=== PATIENT | female | born 1965 | race Caucasian/White ===

== ENCOUNTER 2019-09-01 13:00 | Outpatient (CLI) | payer BC, SELFPAY ==
--- NOTE | 2019-09-01 13:06 | ECG_ITS ---
Measurements Intervals [place] Rate: 65 P: 37 [place]: 152 QRS: 54 QRSD: 91 T: 22 QT: 404 QTc: 421 Interpretive Statements SINUS RHYTHM DELAYED PRECORDIAL R/S TRANSITION BASELINE ARTIFACT- I, II, III, AVR, AVL, V3-V4 BORDERLINE ECG Electronically Signed On 09-01-2019 13:30:55 CDT by Tanner Marino D.O.
== END 2019-09-01 13:01 | disposition home or self-care (01) ==
LOC: ANHSURGERY 13:06
PROVIDERS: PCP Family Medicine; Visit Provider Urology
DX: E78.5 Hyperlipidemia, unspecified (principal); R94.31 Abnormal electrocardiogram [ECG] [EKG]
CPT/HCPCS: 87086; 93005

== ENCOUNTER 2019-09-04 00:44 | Outpatient (CLI) | payer BC, SELFPAY ==
[2019-09-04 17:53] LABS: SARS-CoV-2 RNA PCR Negative
== END 2019-09-04 00:45 | disposition home or self-care (01) ==
LOC: ANHCOVIDDT 00:44
PROVIDERS: PCP Family Medicine; Visit Provider Urology
DX: Z20.828 Contact with and (suspected) exposure to other viral communicable diseases (principal); Z01.812 Encounter for preprocedural laboratory examination
CPT/HCPCS: 87635; C9803; U0003

== ENCOUNTER 2019-09-07 02:14 | Day surgery (SDC) | payer BC, SELFPAY ==
[2019-08-31 10:49] VITALS: BMI 30.2
[2019-09-07] VITALS (7 sets, daily range): BP systolic 115–169; BP diastolic 59–81; PULSE 71–90; RESP 14–20; TEMP 36.1–36.8; O2SAT 94–100; BMI 30.4
--- NOTE | 2019-09-07 06:05 | WPDHPUPDATE1 ---
History and Physical Update Update Date/Time: 09/07/19 06:05 History and Physical has been reviewed, including an updated exam of the patient. There are NO changes in the patient's condition. Risks, benefits, and alternatives have been discussed and questions answered. Patient agrees to proceed with procedure.
[2019-09-07] MEDS: LACTATED RINGERS 1,000 ML 30 ML IV CONT (13:30)
--- NOTE | 2019-09-07 14:10 | WPDANESEPPF ---
Anes - Initial Pre Proc Eval Procedure: Operation Date: 09/07/19 15:00 Proposed Procedures p Cystoscopy - Ken Marie MD s Exam Under Anesthesia, Abdominal Wound Exploration - Ken Marie MD Date/Time: 09/07/19 14:10 Surgeon: Ken Marie MD Pre Op Diagnosis: Foreign Body In Abdomen Patient Data Age: 54 Gender: F Height: 1.63 m Weight: 80.4 kg Last Vital Signs Temp 36.8 C 09/07/19 13:38 Pulse 71 09/07/19 13:38 Resp 16 09/07/19 13:38 BP 127/69 09/07/19 13:38 Pulse Ox 96 09/07/19 13:38 Allergies Allergy/AdvReac Type Severity Reaction Status Date / Time No Known Allergies Allergy Verified 09/07/19 13:34 Home Medications Medication Instructions Recorded Confirmed Type venlafaxine 150 mg 150 mg PO DAILY 04/02/19 09/07/19 History capsule,extended release 24 hr buspirone 5 mg tablet 5 mg PO TID #90 tablet 07/28/19 09/07/19 Rx metoprolol tartrate 25 mg tablet 25 mg PO DAILY #60 tablet 07/28/19 09/07/19 Rx nystatin 100,000 unit/gram topical 1 applic TOPICAL BID #60 gm 07/28/19 09/07/19 Rx powder cephalexin 250 mg PO BID 08/31/19 09/07/19 History multivitamin 1 tablet PO DAILY 08/31/19 09/07/19 History omeprazole 20 mg PO DAILY 08/31/19 09/07/19 History rosuvastatin 20 mg PO DAILY 08/31/19 09/07/19 History Patient hx anesthesia problems: none Family hx anesthesia problems: none PMFSH Past Medical History Medical History (Updated 09/04/19 @ 13:12 by Vern Watson DO) Benign essential HTN DJD (degenerative joint disease) DEIDRE (generalized anxiety disorder) Hyperlipidemia MDD (major depressive disorder), recurrent episode, moderate DEVENDRA (obstructive sleep apnea) Tobacco use disorder, mild, abuse Surgical History Surgical History (Updated 09/04/19 @ 13:12 by Vern Watson DO) History of hysterectomy S/P left knee arthroscopy Family History Family History (Updated 11/20/18 @ 09:36 by DOCTOR UNKNOWN) Mother Family history of osteoporosis Hypertension Family history of dementia, Onset Age: 85 Sibling Hypertension Family history of alcoholism Father Malignant neoplasm of prostate Family history of congestive heart failure Family history of heart disease in male family member before age 55 Family history of cardiovascular disease, Onset Age: 68 Grandparent Family history of pancreatic cancer Other Family history of arthritis Social History Social History (Updated 07/28/19 @ 11:41 by Virgen Stauffer) Social History: Single Smoking packs per day: 0.5 Smoking cigarettes per day: 10.0 Years smoked: 30 Smoking pack-years: 15.00 Smoking status: Light tobacco smoker Tobacco type: cigarettes Second hand tobacco smoke exposure: Yes Alcohol intake: never Substance use: current Substance use type: marijuana Gender identity (if verbalized by the patient): Female Anes - Eval Final PreProcedure Day of Procedure 09/07/19 14:10 Patient weight: obese Heart: regular rate and rhythm Lungs: clear to auscultation and normal air movement Airway: Mallampati scale class II Neurological: alert and oriented Last oral intake: >/= 8 hours ASA classification: III Emergent: no Anesthetic plan: proceed Anesthesia type and monitoring: general LMA and standard monitoring Informed Consent: The patient's anesthetic plan and its attendant risks and benefits were discussed with the patient/family/POA. Questions were solicited and answers provided to the satisfaction of the patient/family/POA.
[2019-09-07] MEDS: ceFAZolin 2 GM/D5W 50 ML 2 GM/50 ML BAG IVPB (14:38)
[2019-09-07] MEDS: LIDO 1%/EPINEPHRINE 1:100,000 20 ML VIAL INFILTRATE (15:08)
[2019-09-07] MEDS: LIDOCAINE HCL 2% GEL UROJET 10 ML PKG MUCOUS MEM (15:16)
--- NOTE | 2019-09-07 15:29 | PM.PROC ---
Procedure Note - Detailed Date of procedure: 09/07/19 Pre-op diagnosis: Foreign Body In Abdomen Post-op diagnosis: same Procedure performed: Abdominal wound exploration with removal of foreign body, cystoscopy, exam under anesthesia Description of procedure: She was correctly identified and informed consent obtained. She is from the operating room. [facility] The genitalia and lower abdomen were prepped and draped in a sterile fashion. Time-out performed. She was given appropriate perioperative antibiotics. I anesthetized the skin. I made an incision along the exposed a nylon suture. Using Bovie cautery I carried the incision down through the subcutaneous fat all the way of pre fascial area. The sutures dive toward the retropubic space. . A knot encountered and was tied across the midline connecting the right and left nylon sutures from the sling. I cut and removed the not. I then continued to track the sutures down to where they entered the fascia. I cut the sutures above the fascia. Before doing this I did a cystoscopy. She had a somewhat fixed bladder neck but some mobility. There is no bladder foreign bodies. There is no stitches noted inside the bladder. There was no injury to the bladder or urethra. There is no foreign bodies in the urethra. Ureteral orifices were normal. If there is no trabeculation. I did a pelvic exam under anesthesia. There was some mobility to the urethra. There was no exposure or foreign body in the vagina. I copiously irrigated the subcutaneous area. I closed the subcu tissues with 0-Vicryl in a interrupted fashion. I then closed the skin with anel. A sterile dressing was applied. She was awakened and transferred to the PACU in stable condition. Anesthesia: GLMA Surgeon: Ken Marie MD Estimated blood loss (mL): 5 Drains: No Pathology: yes Complications: No immediate complications Condition: stable Disposition: PACU
--- NOTE | 2019-09-07 16:06 | SUR.PHASEI ---
1599 friend(leighann) called for an update, given updated pt should be ready for discharge in about 90 minutes
--- NOTE | 2019-09-07 17:04 | SUR.PHASEI ---
1650 pt complaining her feet are itching, no meds given lately to cause a reaction, pt said she has these episodes anytime of the day, but no one specific place on body. 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 1704 pt doing better with the itching
== END 2019-09-07 17:30 | disposition home or self-care (01) ==
PROVIDERS: PCP Family Medicine; Visit Provider Urology
PROC: (CPT 52352; principal; 2019-09-07 15:00)
PROC: (CPT 52000; 2019-09-07 15:00)
DX: Z48.02 Encounter for removal of sutures (principal); I10 Essential (primary) hypertension; E78.5 Hyperlipidemia, unspecified; G47.33 Obstructive sleep apnea (adult) (pediatric); F32.9 Major depressive disorder, single episode, unspecified; F41.1 Generalized anxiety disorder; F17.210 Nicotine dependence, cigarettes, uncomplicated
CPT/HCPCS: 52000; 15850; 88300; A9270; J0131; J0690; J1200; J2250; J2405; J2704; J3010; J7120

== ENCOUNTER 2019-11-28 13:37 | Emergency (ER) | payer BC, SELFPAY ==
--- NOTE | ~2019-11-28 | XR_ITS ---
EXAMINATION: XR chest 2V 11/28/2019 14:15 INDICATION: Bilateral upper back pain PROCEDURE: 2 view chest COMPARISON: 01/21/2012 FINDINGS: The lungs are clear. The cardiomediastinal silhouette is within normal limits. There are no pleural effusions. There is no pneumothorax suspected. IMPRESSION: 1: NO ACUTE CARDIOPULMONARY DISEASE. Reviewed, dictated and finalized at location A.
[2019-11-28 13:42] VITALS: BP 130/71; PULSE 69; RESP 20; TEMP 36.4; O2SAT 99
--- NOTE | 2019-11-28 13:59 | ED.FEMALEGU ---
HPI - Female Genitourinary General Chief complaint: Back Pain/Injury Stated complaint: lower back pain Time Seen by Provider: 11/28/19 14:00 Source: patient and RN notes reviewed Mode of arrival: ambulatory Limitations: no limitations History of Present Illness MD elicited complaint: flank pain Related Data Home Medications Medication Instructions Recorded Confirmed venlafaxine 150 mg 150 mg PO DAILY 04/02/19 10/20/19 capsule,extended release 24 hr multivitamin 1 tablet PO DAILY 08/31/19 10/20/19 omeprazole 20 mg PO DAILY 08/31/19 10/20/19 rosuvastatin 20 mg PO DAILY 08/31/19 10/20/19 Allergies Allergy/AdvReac Type Severity Reaction Status Date / Time No Known Allergies Allergy Verified 09/07/19 13:34 Review of Systems Review of Systems: Narrative: CONSTITUTIONAL: Denies malaise, chills, sweats, or fever. EYES: Denies visual changes, redness, or discharge. ENT: Denies rhinorrhea, congestion, sinus pain, otalgia or sore throat. CARDIOVASCULAR: Denies chest pain, palpitations, or edema. RESPIRATORY: Denies cough or dyspnea. GASTROINTESTINAL: Denies abdominal pain, nausea, vomiting, diarrhea, bloody, or mucous stools. GENITOURINARY: Denies dysuria or hematuria. SKIN: Denies rash or itching. MUSCULOSKELETAL: Denies back pain, joint pain, or myalgia. NEUROLOGIC: Denies numbness, weakness, or headache. PSYCHIATRIC: Denies anxiety or depression. All systems reviewed & are unremarkable except as noted in HPI and below PMFSH Social History Social History (Updated 10/20/19 @ 17:09 by Mena Coulter) Social History: Single Smoking packs per day: 0.5 Smoking cigarettes per day: 10.0 Years smoked: 30 Smoking pack-years: 15.00 Smoking status: Light tobacco smoker Tobacco type: cigarettes Second hand tobacco smoke exposure: Yes Alcohol intake: never Substance use: current Substance use type: marijuana Gender identity (if verbalized by the patient): Female Comments At time of signature, agree with nursing past medical, surgical, social and family history. There is no relevant family history pertinent to the presenting complaint Exam Narrative: Exam Narrative: GENERAL: Well-appearing, well-nourished, and in no acute distress. HEAD: Normocephalic. EYES: PERRLA, conjunctivae clear. NECK: Supple. No lymphadenopathy CHEST: Clear to auscultation. No respiratory distress. HEART: Regular rate and rhythm. No murmur heard. Normal peripheral pulses. ABDOMEN: Soft, nontender upon palpation, nondistended, normal active bowel sounds, no palpable or pulsatile masses, no guarding. No CVA tenderness SKIN: Warm, dry, no rash. NEURO: Alert and oriented x3. PSYCH: Normal mood and affect Course Course Emergency Course: Patient is aware of diagnosis, understands and agrees to treatment plan. Anticipatory guidance given. Patient agrees to follow-up as directed and is aware of reasons to seek care at the emergency department. Portions of this record may have been created with voice recognition software Vital Signs Vital signs: Vital Signs Temperature 97.6 F 11/28/19 13:42 Pulse Rate 69 11/28/19 13:42 Respiratory Rate 11/28/19 13:42 Blood Pressure 130/71 11/28/19 13:42 Pulse Oximetry 99 11/28/19 13:42 Temperature 97.6 F 11/28/19 13:42 Pulse Rate 69 11/28/19 13:42 Respiratory Rate 11/28/19 13:42 Blood Pressure 130/71 11/28/19 13:42 Pulse Oximetry 99 11/28/19 13:42 Reviewed. Patient has history of hypertension MDM - Female Genitourinary MDM Narrative Medical decision making narrative: Exam findings and UA show no acute concerns or changes; patient is non-toxic appearing and is in no distress. Patient is appropriate for outpatient treatment and follow-up. Differential Diagnosis Differential diagnosis: Likely urinary tract infection, cystitis and other (Nephrolithiasis, pyelonephritis) Lab Data Labs: Urine Glucose Negative Reference Ra
--- NOTE | 2019-11-28 14:09 | ECG_ITS ---
Measurements Intervals [place] Rate: 64 P: 42 [place]: 161 QRS: 57 QRSD: 93 T: 40 QT: 419 QTc: 435 Interpretive Statements SINUS RHYTHM BASELINE ARTIFACT- II, III, AVL, AVF NORMAL ECG Electronically Signed On 11-29-2019 7:59:19 CDT by Tanner Marino D.O.
--- NOTE | 2019-11-28 14:10 | ED.GENADULT ---
HPI - General Adult General Chief complaint: Back Pain/Injury Stated complaint: lower back pain Time Seen by Provider: 11/28/19 14:00 Source: patient and RN notes reviewed Mode of arrival: ambulatory Limitations: no limitations History of Present Illness HPI narrative: 54-year-old female presents with concern for bilateral dull upper back pain. Denies injury or trauma. Reports chronic back problems. Reports history of kidney stones, bladder infections. Reports nausea. Denies dysuria, hematuria, frequency, urgency, shortness of breath, cough MD complaint: Back pain Related Data Home Medications Medication Instructions Recorded Confirmed venlafaxine 150 mg 150 mg PO DAILY 04/02/19 11/28/19 capsule,extended release 24 hr multivitamin 1 tablet PO DAILY 08/31/19 11/28/19 omeprazole 20 mg PO DAILY 08/31/19 11/28/19 rosuvastatin 20 mg PO DAILY 08/31/19 11/28/19 lactobacillus combination no.8 See Rx Instructions .ROUTE .COMPLEX 11/28/19 11/28/19 [Adult Probiotic] metoprolol tartrate 25 mg PO DAILY 11/28/19 11/28/19 Allergies Allergy/AdvReac Type Severity Reaction Status Date / Time No Known Allergies Allergy Verified 09/07/19 13:34 Review of Systems Review of Systems: Narrative: CONSTITUTIONAL: Denies malaise, chills, or fever. EYES: Denies visual changes, redness, or discharge. ENT: Denies rhinorrhea, congestion, sinus pain, otalgia or sore throat. CARDIOVASCULAR: Denies chest pain, palpitations, or edema. RESPIRATORY: Denies cough or dyspnea. GASTROINTESTINAL: Denies abdominal pain, vomiting, diarrhea. Reports nausea and constipation GENITOURINARY: Denies frequency, urgency, dysuria or hematuria. SKIN: Denies bruising, redness MUSCULOSKELETAL: Reports bilateral upper dull back pain. Denies myalgia. NEUROLOGIC: Denies numbness, weakness, or headache. All systems reviewed & are unremarkable except as noted in HPI and below PMFSH Past Medical History Medical History Benign essential HTN DJD (degenerative joint disease) DEIDRE (generalized anxiety disorder) Hyperlipidemia MDD (major depressive disorder), recurrent episode, moderate DEVENDRA (obstructive sleep apnea) Tobacco use disorder, mild, abuse Social History Social History (Updated 10/20/19 @ 17:09 by Mena Coulter) Social History: Single Smoking packs per day: 0.5 Smoking cigarettes per day: 10.0 Years smoked: 30 Smoking pack-years: 15.00 Smoking status: Light tobacco smoker Tobacco type: cigarettes Second hand tobacco smoke exposure: Yes Alcohol intake: never Substance use: current Substance use type: marijuana Gender identity (if verbalized by the patient): Female Comments At time of signature, agree with nursing past medical, surgical, social and family history. There is no relevant family history pertinent to the presenting complaint Exam Narrative: Exam Narrative: GENERAL: Well-appearing, well-nourished, and in no acute distress. HEAD: Normocephalic, atraumatic. EYES: PERRLA, conjunctivae clear ENT: Mucous membranes moist. NECK: Supple. No jugular venous distension CHEST: No respiratory distress. Clear to auscultation. No bony deformities, no asymmetry. Speaks in full sentences. HEART: Regular rate and rhythm. No murmur heard. ABDOMEN: Soft, nontender, nondistended, normal active bowel sounds, no palpable masses. No CVA tenderness MUSCULOSKELETAL: Gross normal range of motion and strength in all extremities;No midline back tenderness to palpation. No paraspinal tenderness. Transfers from lying to sitting to standing. SKIN: Warm, dry, no rash. NEURO: Alert and oriented x3. PSYCH: Normal mood and affect Course Course Emergency Course: Patient is aware of diagnosis, understands and agrees to treatment plan. Anticipatory guidance given. Patient agrees to follow-up as directed and is aware of reasons to seek care at the emergency department. Portions of
== END 2019-11-28 14:34 | disposition home or self-care (01) ==
PROVIDERS: Emergency Provider Nurse Practitioner; PCP Family Medicine
DX: M54.6 Pain in thoracic spine (principal); F17.210 Nicotine dependence, cigarettes, uncomplicated; I10 Essential (primary) hypertension; E78.5 Hyperlipidemia, unspecified; G47.33 Obstructive sleep apnea (adult) (pediatric)
CPT/HCPCS: 71046; 81003; 93005; 99213; G0463

== ENCOUNTER → 2020-01-12 08:41 | Outpatient (CLI) | payer BC, SELFPAY ==
--- NOTE | ~2020-01-12 | MR_ITS ---
EXAMINATION: MR lumbar spine wo con DATE: 01/12/2020 09:18 INDICATION: Lumbar radicular pain. TECHNIQUE: Magnetic resonance imaging (MRI) of the lumbar spine was performed without intravenous con trast. Sequences included sagittal T2-weighted FSE, sagittal T2-weighted FS FSE, sagittal T1-weighted FSE, and axial T2-weighted FSE. COMPARISON: None FINDINGS: There is 7 degrees levocurvature of thoracolumbar spine. There is 2 mm anterolisthesis of L 5 on S1. Vertebral body heights are normal. There is mildly decreased disc height at L5-S1. The dista l spinal cord signal intensity is normal. The conus medullaris is at L1. The following disc levels ar e specifically discussed: L1-L2: The disc does not extend beyond the endplate margin. There is mild bilateral facet joint osteo arthritis. There is no neural foraminal stenosis. There is no central canal stenosis. L2-L3: The disc is bulging. There is mild bilateral facet joint osteoarthritis. There is mild bilater al neural foraminal stenosis. There is no central canal stenosis. L3-L4: The disc is mildly bulging. There is mild bilateral facet joint osteoarthritis. There is mild bilateral neural foraminal stenosis. There is no central canal stenosis. L4-L5: The disc is bulging. There is severe bilateral facet joint osteoarthritis with a synovial cyst of the right that displaces the right L5 nerve root. There is moderate bilateral neural foraminal st enosis. There is mild central canal stenosis. L5-S1: The disc is bulging and has an annular fissure. There is severe bilateral facet joint osteoart hritis. There is mild bilateral neural foraminal stenosis. There is no central canal stenosis. IMPRESSION: 1. Moderate lower lumbar spondylosis. Reviewed, dictated and finalized at location A.
== END ==
PROVIDERS: PCP Family Medicine
DX: M47.26 Other spondylosis with radiculopathy, lumbar region (principal)
CPT/HCPCS: 72148

== ENCOUNTER 2020-03-17 09:42 | Emergency (ER) | payer BC, SELFPAY ==
[2020-03-17 09:47] VITALS: BP 151/87; PULSE 85; RESP 16; TEMP 36.6; O2SAT 97
--- NOTE | 2020-03-17 10:14 | ED.FEMALEGU ---
HPI - Female Genitourinary General Chief complaint: Urogenital-Female Stated complaint: poss uti Time Seen by Provider: 03/17/20 09:54 Source: patient and RN notes reviewed Mode of arrival: ambulatory Limitations: no limitations History of Present Illness HPI Narrative: Patient presents today with a 2-week history of urinary frequency, malodorous urine, and occasional dysuria. Denies hematuria or abdominal pain. Patient reports chronic low back pain, but no worse than normal. Reports history of bladder surgery x2, once in June and once in August 2019. States she still has drainage from her incision, which her urologist is aware of. Since she developed these new symptoms of frequency and malodorous urine, she has not tried to follow-up with her doctor. She has not tried any [id number] treatment prior to arrival. Smokes 0.75 packs/day. MD elicited complaint: other (Urinary frequency) Related Data Home Medications Medication Instructions Recorded Confirmed multivitamin 1 tablet PO DAILY 08/31/19 03/17/20 omeprazole 20 mg PO DAILY 08/31/19 03/17/20 rosuvastatin 40 mg PO DAILY 03/17/20 03/17/20 Allergies Allergy/AdvReac Type Severity Reaction Status Date / Time No Known Allergies Allergy Verified 03/17/20 09:51 Review of Systems Review of Systems: Narrative: CONSTITUTIONAL: Denies body aches, fever, chills, or sweats. EYES: Denies visual changes, redness, or discharge. ENT: Denies rhinorrhea, congestion, sore throat, or otalgia. CARDIOVASCULAR: Denies chest pain, palpitations, or edema. RESPIRATORY: Denies cough or dyspnea. GASTROINTESTINAL: Denies abdominal pain, nausea, vomiting, or diarrhea. GENITOURINARY: Denies hematuria. + Frequency, malodorous urine, occasional dysuria SKIN: Denies rash, itching, or wounds. MUSCULOSKELETAL: Denies back pain, joint pain, or myalgia. NEUROLOGIC: Denies headache, numbness, tingling, or weakness. PSYCH: Denies depression or anxiety. [facility], [facility] Past Medical History Medical History (Updated 03/17/20 @ 10:20 by Julieth Desouza, [employer] MACHINE OPERATOR, [place]) Benign essential HTN DJD (degenerative joint disease) DEIDRE (generalized anxiety disorder) Hyperlipidemia MDD (major depressive disorder), recurrent episode, moderate DEVENDRA (obstructive sleep apnea) Tobacco use disorder, mild, abuse Surgical History Surgical History (Updated 03/17/20 @ 10:20 by Julieth Desouza, [facility], ) History of bladder surgery History of hysterectomy S/P left knee arthroscopy Family History Family History Mother Family history of osteoporosis Hypertension Family history of dementia, Onset Age: 85 Sibling Hypertension Family history of alcoholism Father Malignant neoplasm of prostate Family history of congestive heart failure Family history of heart disease in male family member before age 55 Family history of cardiovascular disease, Onset Age: 68 Grandparent Family history of pancreatic cancer Other Family history of arthritis Social History Social History (Updated 10/20/19 @ 17:09 by Mena Coulter) Social History: Single Smoking packs per day: 0.5 Smoking cigarettes per day: 10.0 Years smoked: 30 Smoking pack-years: 15.00 Smoking status: Light tobacco smoker Tobacco type: cigarettes Second hand tobacco smoke exposure: Yes Alcohol intake: never Substance use: current Substance use type: marijuana Gender identity (if verbalized by the patient): Female Comments At time of signature, I have reviewed and agree with nursing past medical, surgical, social and family history unless otherwise noted. Please see nursing chart for further information. There is no relevant family history pertinent to the presenting complaint Exam Narrative: Exam Narrative: GENERAL: Well-appearing, well-nourished, and in no acute distress. HEAD: Normocephalic, atraumatic. EYES: EOMI. No redness or drainage. C
== END 2020-03-17 10:22 | disposition home or self-care (01) ==
PROVIDERS: Emergency Provider Nurse Practitioner; PCP Family Medicine
DX: R35.0 Frequency of micturition (principal); F17.210 Nicotine dependence, cigarettes, uncomplicated; I10 Essential (primary) hypertension; M19.90 Unspecified osteoarthritis, unspecified site; E78.5 Hyperlipidemia, unspecified; G47.33 Obstructive sleep apnea (adult) (pediatric)
CPT/HCPCS: 81003; 87086; 99213; G0463

== ENCOUNTER 2020-03-21 11:56 | Outpatient (CLI) | payer BC, SELFPAY ==
--- NOTE | ~2020-03-21 | CT_ITS ---
EXAMINATION: CT abdomen pelvis wo con DATE: 03/21/2020 12:23 INDICATION: Flank pain. Urinary frequency. TECHNIQUE: Computed tomography (CT) of the abdomen and pelvis was performed without intravenous contr ast. The dose-length product was 1050.59 mGy-cm. Automated exposure control and iterative reconstruct ion technique were employed. COMPARISON: CT dated 12/08/2018 FINDINGS: There is lingular atelectasis/scarring. Heart size normal. No significant pleural or perica rdial effusion. There are calcified granulomas in the spleen. There are cholecystectomy clips. The li juan ramon, pancreas, adrenal glands and kidneys are unremarkable. No ureteral stones or hydronephrosis. The re is diffuse bladder wall thickening with mild perivesical fatty infiltration. No significant vascul ar abnormality. No lymphadenopathy. There is mild lumbar spondylosis. No acute osseous abnormality. N onobstructive bowel gas pattern. Status post hysterectomy. IMPRESSION: 1. Bladder wall thickening, suspicious for cystitis. Correlate clinically. Reviewed, dictated and finalized at location A. OR CONTACT CENTRE OPERATOR
== END 2020-03-21 11:57 | disposition home or self-care (01) ==
PROVIDERS: PCP Family Medicine; Visit Provider Nurse Practitioner Adult Health
DX: R10.9 Unspecified abdominal pain (principal); R93.41 Abnormal radiologic findings on diagnostic imaging of renal pelvis, ureter, or bladder
CPT/HCPCS: 74176

== ENCOUNTER 2020-05-30 15:35 | Emergency (ER) | payer BC, SELFPAY ==
[2020-05-30 15:40] VITALS: BP 163/78; PULSE 86; RESP 18; TEMP 35.8; O2SAT 99
--- NOTE | 2020-05-30 15:45 | ED.FEMALEGU ---
HPI - Female Genitourinary General Chief complaint: Urogenital-Female Stated complaint: Kidney or bladder infection Time Seen by Provider: 05/30/20 15:45 Source: patient and RN notes reviewed Mode of arrival: ambulatory Limitations: no limitations History of Present Illness HPI Narrative: 55-year-old female presents to the [facility] with complaints of I think I have a UTI. Patient with right flank pain. Patient reports pain is 10 out of 10 and is very unbearable. Denies any nausea vomiting or diarrhea. States it hurts to breathe and move. Related Data Home Medications Medication Instructions Recorded Confirmed multivitamin 1 tablet PO DAILY 08/31/19 04/01/20 omeprazole 20 mg PO DAILY 08/31/19 04/01/20 rosuvastatin 40 mg PO DAILY 03/17/20 04/01/20 gabapentin 100 mg PO DAILY 05/30/20 05/30/20 Allergies Allergy/AdvReac Type Severity Reaction Status Date / Time No Known Allergies Allergy Verified 04/01/20 11:01 Review of Systems Review of Systems: Narrative: CONSTITUTIONAL: Denies fever, chills, or sweats. Reports pain 10 out of 10 EYES: Denies visual changes, redness, or discharge. ENT: Denies rhinorrhea, congestion, sore throat, or otalgia. CARDIOVASCULAR: Denies chest pain, palpitations, or edema. RESPIRATORY: Denies cough or reports shortness of breath when she is having severe pain GASTROINTESTINAL: Denies abdominal pain, nausea, vomiting, or diarrhea. Right lateral abdominal and CVA tenderness GENITOURINARY: Denies dysuria or hematuria. SKIN: Denies rash or itching. MUSCULOSKELETAL: Denies back pain, joint pain, or myalgia. NEUROLOGIC: Denies headache, numbness, or weakness. PSYCHIATRIC: Denies anxiety or depression. All other systems reviewed are negative, except as documented in HPI. [facility] Past Medical History Medical History Benign essential HTN DJD (degenerative joint disease) DEIDRE (generalized anxiety disorder) Hyperlipidemia MDD (major depressive disorder), recurrent episode, moderate DEVENDRA (obstructive sleep apnea) Tobacco use disorder, mild, abuse Surgical History Surgical History History of bladder surgery History of hysterectomy S/P left knee arthroscopy Family History Family History Mother Family history of osteoporosis Hypertension Family history of dementia, Onset Age: 85 Sibling Hypertension Family history of alcoholism Father Malignant neoplasm of prostate Family history of congestive heart failure Family history of heart disease in male family member before age 55 Family history of cardiovascular disease, Onset Age: 68 Grandparent Family history of pancreatic cancer Other Family history of arthritis Social History Social History Social History: Single Smoking packs per day: 0.5 Smoking cigarettes per day: 10.0 Years smoked: 30 Smoking pack-years: 15.00 Smoking status: Current every day smoker Tobacco type: cigarettes Second hand tobacco smoke exposure: Yes Alcohol intake: never Substance use: current Substance use type: marijuana Gender identity (if verbalized by the patient): Female Comments At the time of my signature, I reviewed and agree with the nursing past medical, surgical, social, and family history. There is no relevant family history pertinent to the patient complaint. Exam Narrative: Exam Narrative: GENERAL: This is a well-nourished, well-developed patient, in pain HEAD: normocephalic, atraumatic. EYES: PERRL. Sclera clear/white. Vision is grossly intact. EARS: External ears normal NECK: Neck supple, non-tender without lymphadenopathy. CARDIOVASCULAR: Regular rate and rhythm without murmurs, gallops, or rubs. RESPIRATORY: Clear to auscultation. Breath sounds equal bilaterally. No wheezes, rales, or rho
== END 2020-05-30 15:59 | disposition short-term general hospital (02) ==
LOC: EXPBETH 15:38
PROVIDERS: Emergency Provider Nurse Practitioner; PCP Family Medicine
DX: R10.9 Unspecified abdominal pain (principal); F17.210 Nicotine dependence, cigarettes, uncomplicated; I10 Essential (primary) hypertension; M19.90 Unspecified osteoarthritis, unspecified site; E78.5 Hyperlipidemia, unspecified; F32.9 Major depressive disorder, single episode, unspecified; G47.33 Obstructive sleep apnea (adult) (pediatric)
CPT/HCPCS: 81003; 99212; G0463

== ENCOUNTER 2020-12-09 10:42 | Emergency (ER) | payer BC, SELFPAY ==
--- NOTE | ~2020-12-09 | CT_ITS ---
EXAMINATION: CT abdomen pelvis wo con DATE: 12/09/2020 13:29 INDICATION: Flank pain. TECHNIQUE: Computed tomography (CT) of the abdomen and pelvis was performed without intravenous contr ast. Automated exposure control and iterative reconstruction technique were employed. The dose-length product was 773.69 mGy-cm. COMPARISON: CT abdomen and pelvis 03/21/2020 FINDINGS: The visualized portions of the lung bases demonstrate mild atelectasis. No pleural effusion . The heart size is normal. No pericardial effusion. There are coronary artery calcifications. The li juan ramon is normal. There are changes of cholecystectomy. Calcifications in the spleen are consistent with old granulomatous disease. The pancreas, adrenal glands, and kidneys are normal. There is no urolith iasis. There is a 5.5 x 3.1 U-shaped fluid collection inferior to the bladder. The bladder demonstrat es diffuse wall thickening and adjacent mild fat stranding. There are no dilated loops of bowel. The appendix is normal. There are no pathologically enlarged lymph nodes. There is no free intraperitonea l fluid. There is severe thoracic spondylosis and mild lumbar spondylosis. IMPRESSION: 1. 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 2. Wall thickening of the bladder suspicious for cystitis. Reviewed, dictated and finalized at location A. IMPRESSION: 1. Fluid collection inferior to the bladder, likely a large urethral diverticul um. 2. Wall thickening of the bladder suspicious for cystitis.
[2020-12-09 11:03] VITALS: BP 135/92; PULSE 110; RESP 16; TEMP 36.9; O2SAT 99
--- NOTE | 2020-12-09 13:09 | ED.FEMALEGU ---
HPI - Female Genitourinary General Chief complaint: Urogenital-Female Stated complaint: Urinary retention Time Seen by Provider: 12/09/20 12:35 Source: patient Mode of arrival: ambulatory Limitations: no limitations History of Present Illness HPI Narrative: Patient is a 55-year-old female complaining of urinary retention, accompanied by a low back pain x2 months. Patient states that she has history of kidney stones. Patient states that she recently saw a urologist and had a Ralph cath placed and approximately 720 cc of urine output was obtained. Patient denies any chest pain, shortness of breath, abdominal pain, nausea, vomiting, fever or chills. Related Data Home Medications Medication Instructions Recorded Confirmed gabapentin 100 mg PO DAILY 05/30/20 05/30/20 Allergies Allergy/AdvReac Type Severity Reaction Status Date / Time No Known Allergies Allergy Verified 04/01/20 11:01 Review of Systems Review of Systems: All systems reviewed & are unremarkable except as noted in HPI and below Constitutional: Constitutional: Denies body ache(s), Denies chills, Denies excessive sweating, Denies fatigue, Denies fever(s), Denies headache(s), Denies lethargy, Denies malaise, Denies weakness and Denies weight loss Eyes: Eyes: Denies blurry vision, Denies change in vision and Denies loss of vision ENT: Denies dizziness, Denies ear discharge, Denies headache(s), Denies lip swelling, Denies epistaxis, Denies nasal congestion, Denies neck pain, Denies throat swelling and Denies tongue swelling Cardiovascular: Cardiovascular: Denies chest pain, Denies chest pain at rest, Denies chest pain with activity, Denies diaphoresis, Denies rapid heart rate, Denies edema, Denies irregular heart rhythm, Denies lightheadedness, Denies palpitations, Denies dyspnea and Denies dyspnea on exertion Respiratory: Respiratory: Denies chest congestion, Denies cough, Denies hemoptysis, Denies dyspnea and Denies dyspnea on exertion Gastrointestinal: Gastrointestinal: Denies abdominal pain, Denies melena, Denies hematochezia, Denies diarrhea, Denies nausea, Denies vomiting and Denies hematemesis Musculoskeletal: Musculoskeletal: Denies abnormal gait, Denies deformity, Denies joint swelling, Denies limited range of motion, Denies neck pain and Denies numbness Neurologic: Denies Abnormal speech present, Denies abnormal gait, Denies confusion, Denies dizziness, Denies headache(s), Denies focal weakness, Denies loss of vision, Denies numbness, Denies Other visual disturbances, Denies Sensory deficit (Neuro) and Denies weakness Psychiatric: Psychiatric: Denies confusion, Denies depression, Denies auditory hallucinations, Denies homicidal ideation and Denies suicidal ideation Endocrine: Endocrine: Denies cold intolerance, Denies excessive sweating, Denies fatigue, Denies heat intolerance and Denies palpitations Hematologic/Lymphatic: Hematologic/Lymphatic: Denies easy bleeding and Denies easy bruising Allergic/Immunologic: Allergic/Immunologic: Denies lip swelling, Denies throat swelling and Denies tongue swelling PMFSH Past Medical History Medical History Benign essential HTN DJD (degenerative joint disease) DEIDRE (generalized anxiety disorder) Hyperlipidemia MDD (major depressive disorder), recurrent episode, moderate DEVENDRA (obstructive sleep apnea) Tobacco use disorder, mild, abuse Surgical History Surgical History History of bladder surgery History of hysterectomy S/P left knee arthroscopy Family History Family History Mother Family history of osteoporosis Hypertension Family history of dementia, Onset Age: 85 Sibling Hypertension Family history of alcoholism Father Malignant neoplasm of prostate Family history of congestive heart failure Family history of heart
[2020-12-09 14:27] LABS: Basophils Percent Auto 0.3 % (0.2-1.2); Eosinophils Absolute Auto 0.1 K/mm3 (0-0.3); Eosinophils Percent Auto 1.3 % (0-4.4); Hematocrit 43.9 % (37.0-47.0); Hemoglobin 14.9 g/dL (12.0-15.0); Immature Granulocyte Absolute 0.03 K/mm3 (0.00-0.031); Immature Granulocyte Percent A 0.3 % (0-0.5); Lymphocytes Percent Auto 28.7 % (18.3-44.2); Mean Corpuscular HGB Conc 33.9 g/dl (32-36); Mean Corpuscular Hemoglobin 32.3 pg (26-34); Mean Corpuscular Volume 95.2 fl (80-100); Mean Platelet Volume 11.9 fl (7.4-10.4); Monocytes Absolute Auto 0.6 K/mm3 (0.1-0.6); Monocytes Percent Auto 5.6 % (2.6-8.5); Neutrophils Absolute Auto 6.4 K/mm3 (1.3-6.7); Neutrophils Percent Auto 63.8 % (45.5-73.1); Platelet Count Result 216 k/mm3 (150-375); Red Blood Count 4.61 M/mm3 (4.2-5.4); Red Cell Distribution Width 12.2 % (11.5-14.5); White Blood Count 10.1 K/mm3 (4.5-10.0)
[2020-12-09 14:38] LABS: Alanine Aminotransferase 17 U/L (4-35); Albumin Level 4.3 g/dL (3.5-5.1); Alkaline Phosphatase 84 U/L (38-126); Anion Gap 7 mmol/L (8-16); Aspartate Amino Transferase 23 U/L (14-36); Bilirubin,Total 0.4 mg/dL (0.2-1.3); Blood Urea Nitrogen 7 mg/dL (7-17); Calcium 8.8 mg/dL (8.4-10.2); Carbon Dioxide 28 mmol/L (22-30); Chloride 106 mmol/L (98-107); Estimated CRCL calculation 91 ml/min; Estimated Glomerular Filt Rate > 60; Glucose 102 mg/dL (65-110); Lipase 55 U/L (23-300); Potassium 3.6 mmol/L (3.4-5.0); Sodium 141 mmol/L (137-145)
[2020-12-09 15:41] VITALS: BP 136/85; PULSE 68; RESP 16; O2SAT 97
[2020-12-09 16:12] LABS: Add Urine Microscopic? YES; Appearance Urine Clear (Clear); Bacteria Urine Trace /hpf; Bilirubin Urine Negative (Negative); Blood Urine 2+ (Negative); Color Urine Amber (Yellow); Glucose Urine UA Negative (Negative); Ketones Urine Negative (Negative); Leukocyte Esterase Ur Trace LEU/UL (Negative); Mucus Urine Rare /lpf; Nitrate Urine Positive (Negative); Protein Urine 3+ mg/dL (Negative); RBC Urine >75 /hpf (0-2); Specific Grav Ur 1.019 (1.001-1.035); Squamous Epithelial Cell Urine Few /hpf (Few); WBC Urine >75 /hpf
[2020-12-09 18:30] VITALS: BP 141/85; PULSE 89; RESP 18; O2SAT 97
== END 2020-12-09 18:35 | disposition home or self-care (01) ==
PROVIDERS: Emergency Provider Emergency Medicine; PCP Family Medicine
DX: N30.01 Acute cystitis with hematuria (principal); R33.9 Retention of urine, unspecified; I10 Essential (primary) hypertension; E78.5 Hyperlipidemia, unspecified; G47.33 Obstructive sleep apnea (adult) (pediatric); F17.210 Nicotine dependence, cigarettes, uncomplicated
CPT/HCPCS: 36415; 74176; 80053; 81001; 83690; 85025; 87077; 87086; 87088; 99284

== ENCOUNTER → 2021-01-20 09:40 | Outpatient (CLI) | payer BC, SELFPAY ==
--- NOTE | ~2021-01-20 | XR_ITS ---
EXAMINATION: XR hip RT 2V w AP pelvis INDICATION: Right hip pain TECHNIQUE: AP view the pelvis and two views of the right hip are obtained COMPARISON: 03/02/2010 FINDINGS: Bone alignment is normal. There is no fracture. Osteitis pubis is noted. There is lower lum bar spondylosis. Phleboliths are noted in the pelvis. IMPRESSION: 1. No acute osseous abnormality. Reviewed, dictated and finalized at location B.
--- NOTE | ~2021-01-20 | MR_ITS ---
EXAMINATION: MR lumbar spine wo con DATE: 01/20/2021 10:37 INDICATION: Lumbar radicular pain TECHNIQUE: Magnetic resonance imaging (MRI) of the lumbar spine was performed without intravenous con trast. Sequences included sagittal T2-weighted FSE, sagittal T2-weighted FS FSE, sagittal T1-weighted FSE, and axial T2-weighted FSE. COMPARISON: 01/12/2020 FINDINGS: There are 6 nonrib-bearing lumbar segments, L1-L6. This is been confirmed with correlation with prior CT studies of the chest, abdomen and pelvis which demonstrate 12 paired rib-bearing thoracic segment s. Of note this numbering represents a change by 1 level when compared with the earlier report which presumed a standard complement of 5 lumbar segments. Unchanged mild lumbar levocurvature. 1-2 mm anterolisthesis L5 on L6 and 3 mm anterolisthesis L6 on S 1. Vertebral body heights are normal. Bone marrow signal is normal. Unchanged mild disc height loss a t L6-S1 with posterior annular fissure. Mild disc desiccation without significant disc height loss at L3-L4, L4-L5 and L5-L6. The conus medullaris terminates at L2. There is normal signal in the caudal spinal cord. Paravertebral soft tissues are unremarkable. The following disc levels are specifically discussed: L1-L2: Disc is minimally bulging. There is mild bilateral facet joint osteoarthritis. There is no ashok ral foraminal stenosis. There is no central canal stenosis. L2-L3: Disc is minimally bulging. There is mild bilateral facet joint osteoarthritis. There is no ashok ral foraminal stenosis. There is no central canal stenosis. L3-L4: Disc is bulging with superimposed disc protrusions at the neural foramina, left greater than r ight. There is mild bilateral facet joint osteoarthritis. There is mild bilateral neural foraminal st enosis. There is minimal central canal stenosis. L4-L5: Disc is mildly bulging. There is mild bilateral facet joint osteoarthritis. There is mild bila teral neural foraminal stenosis. There is minimal central canal stenosis. L5-L6: Disc is bulging. There is severe bilateral facet joint osteoarthritis. Prior synovial cyst tang sing from the right facet joint is no longer visualized. There is moderate bilateral neural foraminal stenosis. There is mild central canal stenosis. There is also narrowing of the right and to a lesser degree left lateral recesses. L6-S1: Disc is bulging with annular fissure. There is severe bilateral facet joint osteoarthritis. Th ere is mild bilateral neural foraminal stenosis. There is no central canal stenosis. Is mild narrowin g of the left and right lateral recesses. IMPRESSION: 1. No significant interval change in moderate lumbar spondylosis. Reviewed, dictated and finalized at location A.
== END ==
PROVIDERS: PCP Family Medicine
DX: M54.16 Radiculopathy, lumbar region (principal); M25.551 Pain in right hip; M47.816 Spondylosis without myelopathy or radiculopathy, lumbar region
CPT/HCPCS: 72148; 73502

== ENCOUNTER 2021-03-14 10:24 | Outpatient (CLI) | payer BC, SELFPAY ==
--- NOTE | 2021-03-14 11:00 | NEURO_ITS ---
Impression: # Complains of numbness. # Early sensory Carpal Tunnel Syndrome. # Normal needle/EMG exam. # Clinical correlation recommended. Nerve Conduction Studies Anti Sensory Summary Table Stim Site NR Peak (ms) P-T Amp (?V) Site1 Site2 Delta-P (ms) Dist (cm) Joe (m/s) Left Median Anti Sensory (2-3nd Digit) Wrist 3.7 74.9 Wrist 2-3nd Digit 3.7 14.0 38 Wrist 3.7 76.9 Wrist 2-3nd Digit 3.7 14.0 38 Right Median Anti Sensory (2-3nd Digit) Wrist 3.8 44.3 Wrist 2-3nd Digit 3.8 14.0 37 Wrist 3.5 53.8 Wrist 2-3nd Digit 3.8 14.0 37 Left Radial Anti Sensory (Base 1st Digit) Wrist 2.2 32.1 Wrist Base 1st Digit 2.2 0.0 Right Radial Anti Sensory (Base 1st Digit) Wrist 2.7 19.6 Wrist Base 1st Digit 2.7 0.0 Left Ulnar Anti Sensory (5th Digit) Wrist 2.7 23.6 Wrist 5th Digit 2.7 14.0 52 Right Ulnar Anti Sensory (5th Digit) Wrist 2.9 48.8 Wrist 5th Digit 2.9 14.0 48 Motor Summary Table Stim Site NR Onset (ms) O-P Amp (mV) Site1 Site2 Delta-0 (ms) Dist (cm) Joe (m/s) Left Median Motor (Abd Poll Brev) Wrist 3.7 2.4 Elbow Wrist 4.8 28.0 58 Elbow 8.5 2.0 Right Median Motor (Abd Poll Brev) Wrist 3.2 4.9 Elbow Wrist 4.8 27.0 56 Elbow 8.0 6.0 Left Ulnar Motor (Abd Dig Minimi) Wrist 2.6 7.6 A Elbow Wrist 4.8 28.0 58 A Elbow 7.4 4.8 Right Ulnar Motor (Abd Dig Minimi) Wrist 2.7 6.6 A Elbow Wrist 4.6 27.0 59 A Elbow 7.3 5.7 F Wave Studies NR F-Lat (ms) L-R F-Lat (ms) Left Median (Mrkrs) (Abd Poll Brev) 26.85 0.11 Right Median (Mrkrs) (Abd Poll Brev) 26.96 0.11 Left Ulnar (Mrkrs) (Abd Dig Min) 26.33 0.09 Right Ulnar (Mrkrs) (Abd Dig Min) 26.24 0.09 EMG Side Muscle Nerve Root Ins Act Fibs Amp Dur Recrt Comment Right 1stDorInt Ulnar C8-T1 Nml Nml Nml Nml Nml Right Ext Indicis Radial (Post Int) C7-8 Nml Nml Nml Nml Nml Right Ext Digitorum Radial (Post Int) C7-8 Nml Nml Nml Nml Nml Right BrachioRad Radial C5-6 Nml Nml Nml Nml Nml Right PronatorTeres Median C6-7 Nml Nml Nml Nml Nml Right Abd Poll Brev Median C8-T1 Nml Nml Nml Nml Nml Left 1stDorInt Ulnar C8-T1 Nml Nml Nml Nml Nml Left Ext Indicis Radial (Post Int) C7-8 Nml Nml Nml Nml Nml Left Ext Digitorum Radial (Post Int) C7-8 Nml Nml Nml Nml Nml Left BrachioRad Radial C5-6 Nml Nml Nml Nml Nml Left PronatorTeres Median C6-7 Nml Nml Nml Nml Nml Left Abd Poll Brev Median C8-T1 Nml Nml Nml Nml Nml MTDD
== END 2021-03-14 10:25 | disposition home or self-care (01) ==
PROVIDERS: PCP Family Medicine
DX: R20.0 Anesthesia of skin (principal); G56.00 Carpal tunnel syndrome, unspecified upper limb
CPT/HCPCS: 95886; 95911

== ENCOUNTER 2021-06-10 09:16 | Outpatient (CLI) | payer BC, SELFPAY ==
--- NOTE | ~2021-06-10 | MR_ITS ---
EXAMINATION: MR knee RT wo con DATE: 06/10/2021 10:11 INDICATION: Medial right knee pain TECHNIQUE: Magnetic resonance imaging (MRI) of the right knee was performed without intravenous contr ast. Sequences included coronal PD-weighted FSE, coronal PD-weighted FS FSE, sagittal T2-weighted FS E, sagittal PD-weighted FS FSE and axial PD weighted fat saturated FSE. COMPARISON: None. FINDINGS: Medial compartment: Medial meniscus is normal. Mild partial-thickness cartilage loss with subtle chondral surface irregul arity along the central to posterior weightbearing medial femoral condyle and a few small region of m ild edema-like marrow signal change. Cartilage at the medial tibial plateau appears normal. Lateral compartment: Lateral meniscus is normal. Chondral swelling and signal heterogeneity suggesting some partial thickn ess fissuring along the central to medial aspect of the lateral tibial plateau. Cartilage along the w eightbearing lateral femoral condyle appears normal. Patellofemoral compartment: Deep chondral ulceration with underlying subarticular cystlike changes. Less severe chondral ulcerati on with deep fissuring at the patellar apical ridge and medial facet, the latter with additional tiny subarticular cystlike change. Trochlear cartilage appears normal. Ligaments and tendons: Anterior and posterior cruciate ligaments are normal. Partial tear along the anterior aspect of the p roximal medial collateral ligament with some small amount of surrounding edema consistent with histor y of subacute injury. The fibular collateral ligament complex is normal. The extensor mechanism is no rmal. The visualized medial and lateral hamstring tendons as well as the iliotibial band are normal. Fluid: Physiologic amount of fluid in the joint space. No loose osteochondral bodies identified. Osseous/other: Bone alignment is normal. No fracture or pathologic marrow replacing process. IMPRESSION: 1. Subacute partial tear of the proximal medial collateral ligament. 2. Mild tricompartmental osteoarthritis most prominent in the patellofemoral compartment where there is extensive high-grade patellar chondromalacia. Reviewed, dictated and finalized at location A. IMPRESSION: 1. Subacute partial tear of the proximal medial collateral ligament. 2. Mild tricompartmental osteoarthritis most prominent in the patellofemoral co mpartment where there is extensive high-grade patellar chondromalacia.
== END 2021-06-10 09:17 ==
PROVIDERS: Visit Provider Physician Assistant
DX: M25.561 Pain in right knee (principal); M25.461 Effusion, right knee; S83.411A Sprain of medial collateral ligament of right knee, initial encounter; M17.11 Unilateral primary osteoarthritis, right knee; M94.261 Chondromalacia, right knee
CPT/HCPCS: 73721

== ENCOUNTER 2021-10-05 09:18 | Outpatient (CLI) | payer BC, SELFPAY ==
--- NOTE | ~2021-10-05 | US_ITS ---
EXAMINATION: US art doppler w press LE BI DATE: 10/05/2021 10:18 INDICATION: Claudication. TECHNIQUE: Segmental pressures and plethysmographic and Doppler waveforms of the brachial and lower e xtremity arteries were obtained. COMPARISON: None. FINDINGS: Right and left brachial artery pressures of 188 mm Hg and 175 mm Hg, respectively, are concordant (no rmal difference <= 30 mmHg). The right thigh pressures could not be measured due to inability to cuff occlude the arteries. The be low-knee arterial pressure index was 1.06. The right ankle-brachial index (MARU) is 0.95 (normal >= 0. 9-1.0). The right great toe-brachial index (TBI) is 0.61 (normal >= 0.65). Arterial Doppler waveforms are biphasic from common femoral artery to the ankle. The left thigh pressures and below knee pressure could not be measured due to inability to cuff-occlu de the arteries. The left MARU is 0.96. The left TBI is 0.68. Arterial Doppler waveforms are biphasic from common femoral artery to the ankle. IMPRESSION: 1. Mildly decreased ABIs, consistent with arterial occlusive disease. Reviewed, dictated and finalized at location A.
== END 2021-10-05 09:19 | disposition home or self-care (01) ==
PROVIDERS: PCP Family Medicine; Visit Provider Nurse Practitioner Gerontology
DX: F41.1 Generalized anxiety disorder (principal); I10 Essential (primary) hypertension; E78.5 Hyperlipidemia, unspecified
CPT/HCPCS: 93923

== ENCOUNTER 2022-04-27 15:24 | Outpatient (CLI) | payer BC, SELFPAY ==
--- NOTE | ~2022-04-27 | CT_ITS ---
EXAMINATION: CT lung screening DATE: 04/27/2022 15:53 INDICATION: Personal history of nicotine dependence, current smoker with 20 pack year history TECHNIQUE: Computed tomography (CT) of the chest was performed without intravenous contrast. The dose -length product (DLP) was 111.60 mGy-cm. Automated exposure control and iterative reconstruction tech [employer] were employed. COMPARISON: None FINDINGS: There is mild emphysema. Calcified pulmonary nodules and calcified left hilar and mediastin al lymph nodes are consistent with old granulomatous disease. There is mild scarring of the lingula. No suspicious pulmonary nodules are identified. No pathologically enlarged thoracic lymph nodes are i dentified. The heart size is normal. No pleural effusion or pneumothorax. There is calcified coronary artery atherosclerosis. There is moderate thoracic spondylosis. IMPRESSION: 1. Lung-RADS category 1: Negative. Continue annual screening with noncontrast low-dose chest CT in 12 months. Reviewed, dictated and finalized at location B. R MAINTENANCE IMPRESSION: 1. Lung-RADS category 1: Negative. Continue annual screening with noncontrast l ow-dose chest CT in 12 months.
== END 2022-04-27 15:25 | disposition home or self-care (01) ==
LOC: ANHIMG 15:27
PROVIDERS: PCP Nurse Practitioner Gerontology; Visit Provider Nurse Practitioner Gerontology
DX: Z12.2 Encounter for screening for malignant neoplasm of respiratory organs (principal); Z72.0 Tobacco use
CPT/HCPCS: 71271

== ENCOUNTER 2022-06-25 09:40 | Outpatient (CLI) | payer BC, SELFPAY ==
--- NOTE | ~2022-06-25 | XR_ITS ---
EXAMINATION: XR cervical spine 4-5V DATE: 06/25/2022 10:17 INDICATION: Neck pain. TECHNIQUE: 4 views of cervical spine were obtained. COMPARISON: None. FINDINGS: There is 2 mm retrolisthesis of C5 on C6. Vertebral body heights are normal. There is sever artis decreased disc height at C5-C6 and mildly decreased disc height at C6-C7. There is multilevel unc overtebral joint osteoarthritis, severe bilaterally at C5-C6. There is multilevel mild to moderate fa cet joint osteoarthritis. There is severe facet joint osteoarthritis at C7-T1. There is mild central canal stenosis at C5-C6. No prevertebral soft tissue swelling. IMPRESSION: 1. Severe spondylosis at C5-C6 and mild spondylosis at other levels. Reviewed, dictated and finalized at location A.
--- NOTE | ~2022-06-25 | XR_ITS ---
XR chest 2V 06/25/2022 10:18 Indication: Shortness of breath Procedure: 2 view chest Comparison: 11/28/2019 Findings: Heart size normal. Chronic left basilar atelectasis/scarring. No focal air space disease, p ulmonary edema, pleural effusion or suspected pneumothorax. Impression: 1: No acute cardiopulmonary disease. Reviewed, dictated and finalized at location B. Impression: 1: No acute cardiopulmonary disease.
== END 2022-06-25 09:41 ==
LOC: MICIMG 09:43
PROVIDERS: PCP Family Medicine; Visit Provider Nurse Practitioner Gerontology
DX: M47.812 Spondylosis without myelopathy or radiculopathy, cervical region (principal); R06.02 Shortness of breath
CPT/HCPCS: 71046; 72050

== ENCOUNTER 2022-07-03 15:41 | Outpatient (CLI) | payer BC, SELFPAY ==
--- NOTE | ~2022-07-03 | MM_ITS ---
EXAMINATION: MM screening [facility] BI w abeba HISTORY: Screening mammogram TECHNIQUE: Craniocaudal and mediolateral oblique 3-D tomosynthesis images were obtained and synthetic 2-D images were generated. CAD analysis was submitted and interpreted. COMPARISON: 06/25/2013, 05/17/2011 BREAST PARENCHYMAL COMPOSITION: There are scattered areas of fibroglandular density. FINDINGS: No suspicious mass, calcification, or architectural distortion are identified in either rene ast to suggest malignancy. There has been no suspicious interval change. IMPRESSION: 1. No mammographic evidence of malignancy. 2. Recommend routine screening mammography in one year. BI-RADS Category 1: Negative Reviewed, dictated and finalized at location A.
== END 2022-07-03 15:42 | disposition home or self-care (01) ==
PROVIDERS: PCP Family Medicine; Visit Provider Nurse Practitioner Gerontology
DX: Z12.31 Encounter for screening mammogram for malignant neoplasm of breast (principal)
CPT/HCPCS: 77063; 77067

== ENCOUNTER 2022-09-28 13:04 | Emergency (ER) | payer BC, SELFPAY ==
--- NOTE | ~2022-09-28 | CT_ITS ---
EXAMINATION: CT abdomen pelvis w con DATE: 09/28/2022 15:15 INDICATION: Left lower quadrant abdominal pain. Left groin tenderness. TECHNIQUE: Computed tomography (CT) of the abdomen and pelvis was performed with 100 mL Omnipaque 350 intravenous contrast. Automated exposure control and iterative reconstruction technique were employe d. The dose-length product was 605.36 mGy-cm. COMPARISON: CT abdomen and pelvis 12/09/2020 FINDINGS: The visualized portions of the lung bases demonstrate mild atelectasis. No pleural effusion . The heart size is normal. There are coronary artery calcifications. No pericardial effusion. The li juan ramon is normal. There are changes of cholecystectomy. Calcifications in the spleen are consistent with old granulomatous disease. The pancreas, adrenal glands, and right kidney are normal. There is corti gerhard thinning of left kidney. There are no dilated loops of bowel. The appendix is normal. There is a left-sided spigelian hernia containing fat. There is calcified atherosclerosis of the aorta and many of the other arteries. There are no pathologically enlarged lymph nodes. There is no free intraperito rony fluid. There is severe thoracic spondylosis and moderate lumbar spondylosis. IMPRESSION: 1. Left-sided spigelian hernia containing fat. Reviewed, dictated and finalized at location E.
[2022-09-28 12:59] VITALS: BP 193/95; PULSE 80; RESP 18; O2SAT 99
[2022-09-28 13:37] LABS: Basophils Absolute Auto 0.1 K/mm3 (0.0-0.1); Basophils Percent Auto 0.7 % (0.2-1.2); Eosinophils Absolute Auto 0.1 K/mm3 (0-0.3); Eosinophils Percent Auto 1.7 % (0-4.4); Hematocrit 45.6 % (37.0-47.0); Hemoglobin 15.1 g/dL (12.0-15.0); Immature Granulocyte Absolute 0.03 K/mm3 (0.00-0.031); Immature Granulocyte Percent A 0.4 % (0-0.5); Immature Platelet Fraction Pct 13.7 % (0.9-11.2); Lymphocytes Absolute Auto 2.89 K/mm3 (0.9-3.2); Mean Corpuscular HGB Conc 33.1 g/dl (32-36); Mean Corpuscular Hemoglobin 31.9 pg (26-34); Mean Corpuscular Volume 96.2 fl (80-100); Mean Platelet Volume 12.9 fl (7.4-10.4); Monocytes Absolute Auto 0.6 K/mm3 (0.1-0.6); Monocytes Percent Auto 6.8 % (2.6-8.5); Neutrophils Absolute Auto 4.6 K/mm3 (1.3-6.7); Neutrophils Percent Auto 55.4 % (45.5-73.1); Platelet Count Result 202 k/mm3 (150-375); Red Blood Count 4.74 M/mm3 (4.2-5.4); Red Cell Distribution Width 12.8 % (11.5-14.5); White Blood Count 8.3 K/mm3 (4.5-10.0)
[2022-09-28 13:37] LABS: Appearance Urine Clear (Clear); Bilirubin Urine Negative (Negative); Blood Urine Negative (Negative); Color Urine Yellow (Yellow); Glucose Urine UA Negative (Negative); Ketones Urine Negative (Negative); Leukocyte Esterase Ur Negative LEU/UL (Negative); Nitrate Urine Negative (Negative); Protein Urine Negative (Negative); Specific Grav Ur 1.013 (1.001-1.035); pH Urine 6.5 (5.0-9.0)
[2022-09-28 13:43] LABS: Add Urine Microscopic? NO
[2022-09-28 13:45] LABS: Alanine Aminotransferase 20 U/L (6-35); Albumin Level 4.4 g/dL (3.5-5.1); Alkaline Phosphatase 76 U/L (38-126); Anion Gap 6 mmol/L (8-16); Aspartate Amino Transferase 23 U/L (14-36); Bilirubin,Total 0.7 mg/dL (0.2-1.3); Blood Urea Nitrogen 13 mg/dL (7-17); Calcium 9.2 mg/dL (8.4-10.2); Carbon Dioxide 26 mmol/L (22-30); Chloride 108 mmol/L (98-107); Estimated CRCL calculation 88 ml/min; Estimated Glomerular Filt Rate > 60; Glucose 107 mg/dL (65-110); Lipase 86 U/L (23-300); Potassium 3.6 mmol/L (3.4-5.0); Sodium 140 mmol/L (137-145)
--- NOTE | 2022-09-28 14:58 | ED.GENADULT ---
HPI - General Adult General Chief complaint: Abdominal Pain <Dustin Jackson PA-C - Last Filed: 09/28/22 19:39> Stated complaint: abd pain <Dustin Jackson PA-C - Last Filed: 09/28/22 19:39> Time Seen by Provider: 09/28/22 13:25 <Dustin Jackson PA-C - Last Filed: 09/28/22 19:39> Source: patient <MARIE Lima Last Filed: 09/28/22 19:39> Mode of arrival: EMS <MARIE Lima Last Filed: 09/28/22 19:39> Limitations: no limitations <Dustin Jackson PA-C - Last Filed: 09/28/22 19:39> History of Present Illness HPI narrative: This is a 57-year-old female who presents to the ED with chief complaint of lower abdominal pain beginning this morning around 0930. Patient states she was just sitting at work when this began. Reports sudden onset of left lower sharp/cramping pains intermittent in severity. Denies any recent illness. Denies fevers, chills, nausea, vomiting, diarrhea. Last bowel movement was this morning. No troubles lately with bowel movements. Denies urinary symptoms. States she has been going through menopause for the past year. Reports surgical history of left ovary removal, hysterectomy. <Dustin Jackson PA-C - Last Filed: 09/28/22 19:39> Related Data Home medications: Home Medications Medication Instructions Recorded Confirmed risedronate 150 mg tablet 150 mg PO MONTHLY 04/10/21 07/06/22 linaclotide 290 mcg capsule 290 mcg PO DAILY 05/25/22 07/06/22 (Linzess) fluticasone fur. 100 mcg-umeclid 1 inh inhalation DAILY 06/25/22 07/06/22 62.5 mcg-vilant 25 mcg inhalat.powder (Trelegy Ellipta) aspirin 81 mg tablet,delayed 81 mg PO DAILY 07/06/22 07/06/22 release (Adult Aspirin Regimen) <MARIE Lima Last Filed: 09/28/22 19:39> Allergies/adverse reactions: Allergies Allergy/AdvReac Type Severity Reaction Status Date / Time No Known Allergies Allergy Verified 09/28/22 13:13 <Dustin Jackson PA-C - Last Filed: 09/28/22 19:39> [facility] Past Medical History Medical History: Medical History Benign essential HTN DJD (degenerative joint disease) DEIDRE (generalized anxiety disorder) Hyperlipidemia MDD (major depressive disorder), recurrent episode, moderate DEVENDRA (obstructive sleep apnea) Tobacco use Tobacco use disorder, mild, abuse <Dustin Jackson PA-C - Last Filed: 09/28/22 19:39> Surgical History Surgical History: Surgical History History of bladder surgery 06/24/2019 with revision 09/07/19 History of hysterectomy 04/1997 S/P left knee arthroscopy 10/02/2014 <Dustin Jackson PA-C - Last Filed: 09/28/22 19:39> Family History Family History: Family History Mother Family history of osteoporosis Hypertension Family history of dementia age 85 Sibling Hypertension Family history of alcoholism Renal failure brother age 64 Father Malignant neoplasm of prostate Family history of congestive heart failure Family history of heart disease in male family member before age 55 Family history of cardiovascular disease, Onset Age: 68 Hypertension Acute myocardial infarction age 68 Grandparent Family history of pancreatic cancer Daughter Hypertension Other Family history of arthritis <Dustin Jackson PA-C - Last Filed: 09/28/22 19:39> Social History Social History: Social History Social History: Single Smoking packs per day: 1 Smoking cigarettes per day: 20.0 Years smoked: 30 Smoking pack-years: 30.00 Smoking status: Current every day smoker Tobacco type: cigarettes Second hand tobacco smoke exposure: Yes Alcohol intake: never Substance use: current Substance use type: marijuana Lack of Trans
[2022-09-28] MEDS: MORPHINE SULFATE (*CRX) 4 MG/ML INJ IV PUSH (15:01)
== END 2022-09-28 16:40 | disposition home or self-care (01) ==
PROVIDERS: Emergency Medicine; Emergency Provider Physician Assistant; PCP Internal Medicine
DX: K43.9 Ventral hernia without obstruction or gangrene (principal); I10 Essential (primary) hypertension; E78.5 Hyperlipidemia, unspecified; F17.210 Nicotine dependence, cigarettes, uncomplicated
CPT/HCPCS: 36415; 74177; 80053; 81003; 83690; 85025; 85055; 96374; 99284; J2270; Q9967

== ENCOUNTER 2022-10-05 12:25 | Outpatient (CLI) | payer BC, SELFPAY ==
--- NOTE | 2022-10-05 12:39 | ECG_ITS ---
Measurements Intervals [place] Rate: 72 P: 27 [place]: 149 QRS: 60 QRSD: 97 T: 18 QT: 393 QTc: 432 Interpretive Statements SINUS RHYTHM NORMAL ECG COMPARED TO ECG 11/28/2019 14:19:52 NO SIGNIFICANT CHANGES Electronically Signed On 10-05-2022 13:11:38 CDT by Tanner Marino D.O.
== END 2022-10-05 12:26 | disposition home or self-care (01) ==
LOC: ANHSURGERY 12:30
PROVIDERS: PCP Internal Medicine; Visit Provider Surgery
DX: Z01.812 Encounter for preprocedural laboratory examination (principal); Z01.810 Encounter for preprocedural cardiovascular examination; K43.9 Ventral hernia without obstruction or gangrene
CPT/HCPCS: 36415; 86850; 86900; 86901; 93005

== ENCOUNTER 2022-10-08 01:00 | Day surgery (SDC) | payer BC, SELFPAY ==
[2022-10-04 08:58] VITALS: BMI 32.1
--- NOTE | 2022-10-04 09:00 | PC.NURSE ---
Addendum entered by Danielle Rueda RN 10/05/22 08:18: PT MAY ALSO TAKE DULOXETINE WITH SMALL SIP OF WATER MORNING OF PROCEDURE. Original Note: Report to the Outpatient Waiting Room, entrance under the green pavilion located off [facility], at time _1030_ on date _[id number]_. Planned Procedure Time: _1230_. Time changes happen often and if your time is changed the preop area will call you the afternoon before. - You and your visitor will be asked to self-screen and do not enter if you have any COVID symptoms. - A mask is optional within the hospital at this time. Patients may have clear liquids (water, carbonated beverages, clear teas, apple juice) until 3 hours prior to surgery with a maximum of 20 ounces. - No food from midnight until time of surgery Take the following medications with a SIP of water the morning of surgery: __Buspirone and Metoprolol DO NOT STOP ANY OF YOUR OTHER PRESCRIPTION MEDICATIONS PRIOR TO SURGERY ?EXCEPT THE FOLLOWING Medications to discontinue per physician Date to take last dose Please no make-up, nail sami, hairspray, perfume, deodorant, or body powder the day of surgery. No jewelry (including any body piercings) or valuables the day of surgery, leave them at home. Please take a shower or bath the night before, or the morning of, surgery with an antibacterial soap. Wear comfortable, loose fitting clothing. - Jewelry must be removed prior to entering the operating room. Rings and piercings that are not removed may be cut off. - The hospital will not accept responsibility for valuables. - Please leave all valuables, including medications, at home the day of surgery. If you are going home after surgery, a licensed cab driver must drive you home. - NO public transportation without another adult if you receive anesthesia. - We recommend that an adult stay with you for 24 hours following discharge. - We also recommend that you do not drive, make important decision, drink alcoholic beverages, or take any drugs that were not prescribed by your health care provider for at least 24 hours after your discharge time. Follow any additional instructions given to you from your surgeon. If you or anyone in your household have experienced Covid symptoms in the past week, please notify your surgeon or the nurse liaison at the phone number below for possible testing. Telephone instructions given to _Patient__and asked if any additional questions and then verbalized understanding. Patient advised to call surgeon office or pre surgery nurse liaison [phone] if any additional questions.
--- NOTE | 2022-10-05 18:53 | WPDANESEPP ---
Anes - Eval Pre Procedure Procedure: Operation Date: 10/08/22 12:30 Proposed Procedures p Robotic Assisted Left Spigelian Hernia Repair - Francesca Bautista MD Date/Time: 10/05/22 18:53 Pre Op Diagnosis: Lt Spigelian Hernia Patient Data Age: 57 Gender: F Height: 1.61 m Weight: 83.6 kg Allergies Allergy/AdvReac Type Severity Reaction Status Date / Time No Known Allergies Allergy Verified 10/04/22 08:47 Home Medications Medication Instructions Recorded Confirmed Type albuterol sulfate 90 mcg/actuation 1 inh inhalation Q4H PRN shortness 01/26/22 10/04/22 Rx aerosol inhaler of breath or wheezing #6.7 grams cetirizine 10 mg capsule (All Day 10 mg PO DAILY PRN allergy #90 caps 04/20/22 10/04/22 Rx Allergy (cetirizine)) omeprazole 20 mg capsule,delayed See Rx Instructions .Route 04/30/22 10/04/22 Rx release .COMPLEX #90 caps aspirin 81 mg tablet,delayed 81 mg PO DAILY 07/06/22 10/04/22 History release (Adult Aspirin Regimen) buspirone 5 mg tablet See Rx Instructions .Route 07/24/22 10/04/22 Rx .COMPLEX #90 tabs rosuvastatin 40 mg tablet See Rx Instructions .Route 07/26/22 10/04/22 Rx .COMPLEX #90 tabs celecoxib 200 mg capsule See Rx Instructions .Route 08/06/22 10/04/22 Rx .COMPLEX #30 caps lisinopril 5 mg tablet See Rx Instructions .Route 09/14/22 10/04/22 Rx .COMPLEX #90 tabs duloxetine 60 mg capsule,delayed 60 mg PO DAILY #60 caps 10/01/22 10/04/22 Rx release metoprolol tartrate 25 mg tablet 25 mg PO BID #60 tabs 10/01/22 10/04/22 Rx Patient hx anesthesia problems: none Family hx anesthesia problems: none Results Review: All pre-operative results and documents have been reviewed as part of the pre-operative evaluation. FORMERLY [facility], [facility] Past Medical History Medical History (Updated 10/05/22 @ 18:54 by Nat Baird CRNA) Anxiety Benign essential HTN COPD (chronic obstructive pulmonary disease) DJD (degenerative joint disease) DEIDRE (generalized anxiety disorder) GERD (gastroesophageal reflux disease) Hyperlipidemia Kidney stones Marijuana abuse MDD (major depressive disorder), recurrent episode, moderate Obesity (BMI 30-39.9) DEVENDRA (obstructive sleep apnea) Tachycardia Tobacco use Tobacco use disorder, mild, abuse Surgical History Surgical History (Updated 10/03/22 @ 09:49 by Edita Young) History of bladder surgery 06/24/2019 with revision 09/07/19 History of hysterectomy 04/1997 History of lithotripsy S/P arthroscopy of right shoulder S/P cholecystectomy S/P left knee arthroscopy 10/02/2014 S/P removal of left ovary 09/01/1996 S/P right knee surgery Family History Family History Mother Family history of osteoporosis Hypertension Family history of dementia age 85 Sibling Hypertension Family history of alcoholism Renal failure brother age 64 Father Malignant neoplasm of prostate Family history of congestive heart failure Family history of heart disease in male family member before age 55 Family history of cardiovascular disease, Onset Age: 68 Hypertension Acute myocardial infarction age 68 Grandparent Family history of pancreatic cancer Daughter Hypertension Other Family history of arthritis Social History Social History Social History: Single Smoking packs per day: 1 Smoking cigarettes per day: 20.0 Years smoked: 40 Smoking pack-years: 40.00 Smoking status: Current every day smoker Tobacco type: cigarettes Second hand tobacco smoke exposure: Yes Additional smoking assessment comments: Down to 1/2 pack a day. Alcohol intake: never Substance use: current Substance use type: marijuana Other substance usage details: For pain Lack of Transportation: No Lack of Food: Never True Current Housing: I Have Housing Concerned About Future Ho
[2022-10-08] VITALS (12 sets, daily range): BP systolic 98–156; BP diastolic 51–99; PULSE 63–90; RESP 16–20; TEMP 36.1–36.2; O2SAT 92–100
--- NOTE | 2022-10-08 08:32 | WPDHPUPDATE1 ---
History and Physical Update Update Date/Time: 10/08/22 08:32 History and Physical has been reviewed, including an updated exam of the patient. There are NO changes in the patient's condition. Risks, benefits, and alternatives have been discussed and questions answered. Patient agrees to proceed with procedure.
--- NOTE | 2022-10-08 10:41 | P.PNAN_ITS ---
Anes - Eval Final PreProcedure Day of Procedure 10/08/22 10:41 Patient weight: obese Heart: regular rate and rhythm Lungs: clear to auscultation Airway: Mallampati scale class II Neurological: alert and oriented Last oral intake: >/= 8 hours ASA classification: III Emergent: no Anesthetic plan: proceed Anesthesia type and monitoring: general ETT and standard monitoring Results Review: All pre-operative results and documents have been reviewed as part of the pre- operative evaluation. Informed Consent: The patient's anesthetic plan and its attendant risks and benefits were discussed with the patient/family/POA. Questions were solicited and answers provided to the satisfaction of the patient/family/POA.
[2022-10-08] MEDS: LACTATED RINGERS 1,000 ML 30 ML IV CONT ×2 (10:51→15:19)
[2022-10-08] MEDS: KETOROLAC 15 MG/ML VIAL (*BKC) IV PUSH (10:52)
[2022-10-08] MEDS: ACETAMINOPHEN 500 MG TABLET 1000 MG PO (10:52)
[2022-10-08] MEDS: ceFAZolin 2 GM/D5W 50 ML 2 GM/50 ML BAG IVPB (13:34)
[2022-10-08] MEDS: BUPIVACAINE/EPINEPHRINE 0.5% 50 ML VIAL 30 ML INFILTRATE (14:08)
--- NOTE | 2022-10-08 15:13 | W.PM.PROC2 ---
Procedure Note - Detailed Date of Procedure 10/08/22 Pre-op Diagnosis Left Spigelian Hernia Post-op Diagnosis Same Procedure Performed robotic assisted repair left spigelian hernia with mesh, defect measuring approximately 3.5 cm Surgeon Francesca Bautista MD Anesthesia General Indications 57-year-old female presenting to the office complaining of left lower abdominal pain. Workup, including imaging, was significant for left spigelian hernia. Findings Left spigelian hernia containing fat with defect measuring approximately 3.5 cm Description of Procedure The patient was taken to the operating room placed in the supine position. After adequate induction of general anesthesia, the patient is prepped and draped in the normal sterile fashion. A time-out was then done to verify the patient's identity, as well as the procedure being performed. I began by making a 8 mm incision in the right upper quadrant. A Veress needle was then placed through this incision into the peritoneal cavity and CO2 gas was then insufflated. After adequate pneumoperitoneum was achieved, the Veress needle was removed an 8 mm Optiview trocar was placed under direct visualization. Once confirmed in position, the obturator was removed. The laparoscoped was then placed through this port site and under direct visualization a further 8 mm right mid abdominal port and right mm right lower quadrant port were placed. The left spigelian hernia was identified and noted to be moderate sized. There was noted to be some incarcerated preperitoneal fat within the hernia. At this point, the robot was docked to the 3 port sites. I began by making a preperitoneal flap medial to the hernia. This flap was taken circumferentially around the hernia. I was then able to reduce the hernia, which again contained preperitoneal fat that was viable. Once completely reduced, this left a 3.5 cm defect. The defect was then closed with an 0 Stratafix suture. The right upper quadrant 8 mm port was upsized to a 12 mm port to allow placement of the mesh. I then placed a circular Ventralight ST mesh measuring 4.6 inches into the peritoneal cavity. The positional stitch was brought out through the center of the defect, allowing us to center the mesh over the defect. I then sutured in the mesh circumferentially using a 2 0 V lock suture. Once complete, the mesh was noted to have good overlap of the defect. The Echo positioning device was then removed. I then closed the peritoneal flap using a 2 0 V lock suture. Under direct visualization, using the John cone I closed the 12 mm defect in the right upper quadrant with an 0 Vicryl suture. The robot was then undocked and all ports were removed. All ports 4-0 Monocryl subcuticular suture and Dermabond was placed on all wounds. The patient tolerated the procedure well was extubated postoperative. She will be transferred to the recovery room in stable condition. Implants 4.[address] mesh Estimated Blood Loss 10 Drains No Packing No Pathology None sent Complications No immediate complications Condition Stable Disposition PACU [facility] Billing Surgery - Charge Forward: Surgery Billing
[2022-10-08] MEDS: fentaNYL CITRATE INJ (*CRX) 100 MCG/2 ML VIAL 25 MCG IV PUSH ×8 (15:40→16:26)
[2022-10-08] MEDS: HYDROmorphone HCL INJ (*CRX) 1 MG/ML SYR 0.5 MG IV PUSH ×4 (16:15→16:35)
[2022-10-08] MEDS: HYDROcodone/acetaminophen (*CRX) 7.5-325 MG TABLET 1 TAB PO (17:57)
[2022-10-08] MEDS: ONDANSETRON HCL ODT 4 MG TABLET PO (18:01)
== END 2022-10-08 18:17 | disposition home or self-care (01) ==
PROVIDERS: PCP Internal Medicine; Visit Provider Surgery
PROC: (CPT 49593; principal; 2022-10-08 12:30)
DX: K43.9 Ventral hernia without obstruction or gangrene (principal); Z79.51 Long term (current) use of inhaled steroids; Z79.82 Long term (current) use of aspirin; I10 Essential (primary) hypertension; J44.9 Chronic obstructive pulmonary disease, unspecified; E78.5 Hyperlipidemia, unspecified; G47.33 Obstructive sleep apnea (adult) (pediatric); F41.1 Generalized anxiety disorder; F33.1 Major depressive disorder, recurrent, moderate; R00.0 Tachycardia, unspecified; K21.9 Gastro-esophageal reflux disease without esophagitis; E66.9 Obesity, unspecified; Z68.31 Body mass index [BMI] 31.0-31.9, adult; F17.210 Nicotine dependence, cigarettes, uncomplicated; F12.90 Cannabis use, unspecified, uncomplicated
CPT/HCPCS: 49593; S2900; A9270; C1781; J0690; J1100; J1170; J1885; J2405; J2704; J2710; J3010; J7120

== ENCOUNTER 2022-11-04 08:01 | Emergency (ER) | payer BC, SELFPAY ==
--- NOTE | ~2022-11-04 | XR_ITS ---
EXAMINATION: XR chest 2V DATE: 11/04/2022 09:28 INDICATION: Left sided numbness and tingling. Hypertension. TECHNIQUE: Frontal and lateral views of the chest were obtained. COMPARISON: Chest 2 views 06/25/2022 FINDINGS: A calcified left lung nodule and calcified left hilar lymph nodes are consistent with old g ranulomatous disease. No pleural effusion or pneumothorax. The heart size is normal. There are promin ent paracardial fat pads. Surgical clips in the right upper quadrant are likely from cholecystectomy. There is a suture anchor in right humeral head. IMPRESSION: 1. No acute cardiopulmonary disease. Reviewed, dictated and finalized at location A.
[2022-11-04 08:07] VITALS: BP 169/107; PULSE 110; RESP 20; TEMP 36.4; O2SAT 100
--- NOTE | 2022-11-04 08:49 | ECG_ITS ---
Measurements Intervals [place] Rate: 74 P: 50 [place]: 137 QRS: 48 QRSD: 93 T: 18 QT: 374 QTc: 417 Interpretive Statements SINUS RHYTHM WITHIN NORMAL LIMITS COMPARED TO ECG 10/05/2022 12:43:04 NO SIGNIFICANT CHANGES Electronically Signed On 11-04-2022 11:50:15 CDT by Jimbo Tirado M.D.
--- NOTE | 2022-11-04 08:52 | ED.GENADULT ---
HPI - General Adult General Chief complaint: Unspecified Stated complaint: many complaints Time Seen by Provider: 11/04/22 08:10 Source: patient Limitations: no limitations History of Present Illness HPI narrative: Patient is a 57-year-old female presents to the emergency department complaining of 1.5 weeks of left upper extremity pain now radiates from her neck to her hand throughout her left upper extremity that comes and goes and has a history of this in the past and she has been told she has severe spondylitis in her neck and has not followed up with this nor obtain an MRI. Patient states that the pain has overall been worse over the past 1 and half weeks and is caused her to lose sleep. Patient tried Tylenol for the pain in addition to Celebrex without any relief. Patient denies any precipitating injuries preceding this discomfort and describes the pain as nerves. Patient denies fever, urinary cath, stool incontinence, history of IV drug use, cough, abdominal pain, nausea, vomiting, diarrhea, melena, medic easier, dysuria, hematuria, urinary frequency, urinary urgency, rash, numbness, weakness. Patient has not noticed anything making her discomfort better or worse. Patient admits to going to the chiropractor weekly regarding this and has not gotten any relief and notes that she has an MRI scheduled for this Saturday. Patient admits to history of heart disease in her family and she has had a heart work-up approximately 3 years ago and was told that she was fine just to stop smoking. Patient has not particularly noticed any obvious chest pain but does feel like there is a component of left-sided chest discomfort associated with this. Patient denies shortness of breath, diaphoresis. Related Data Home Medications Medication Instructions Recorded Confirmed aspirin 81 mg tablet,delayed 81 mg PO DAILY 07/06/22 10/24/22 release (Adult Aspirin Regimen) Allergies Allergy/AdvReac Type Severity Reaction Status Date / Time No Known Allergies Allergy Verified 11/04/22 08:13 [facility] Past Medical History Medical History Anxiety Benign essential HTN COPD (chronic obstructive pulmonary disease) DJD (degenerative joint disease) DEIDRE (generalized anxiety disorder) GERD (gastroesophageal reflux disease) Hyperlipidemia Kidney stones Marijuana abuse MDD (major depressive disorder), recurrent episode, moderate Obesity (BMI 30-39.9) DEVENDRA (obstructive sleep apnea) Tachycardia Tobacco use Tobacco use disorder, mild, abuse Surgical History Surgical History H/O hernia repair 10/08/22 robotic assisted repair left Spigelian hernia with mesh, defect measuring approximately 3.5 cm History of bladder surgery 06/24/2019 with revision 09/07/19 History of hysterectomy 04/1997 History of lithotripsy S/P arthroscopy of right shoulder S/P cholecystectomy S/P left knee arthroscopy 10/02/2014 S/P removal of left ovary 09/01/1996 S/P right knee surgery Family History Family History Mother Family history of osteoporosis Hypertension Family history of dementia age 85 Sibling Hypertension Family history of alcoholism Renal failure brother age 64 Father Malignant neoplasm of prostate Family history of congestive heart failure Family history of heart disease in male family member before age 55 Family history of cardiovascular disease, Onset Age: 68 Hypertension Acute myocardial infarction age 68 Grandparent Family history of pancreatic cancer Daughter Hypertension Other Family history of arthritis Social History Social History Social History: Single Smoking packs per day: 1 Smoking cigarettes per day: 20.0 Years smoked: 40 Smoking pack
[2022-11-04] MEDS: ASPIRIN 325 MG TABLET PO (08:58)
[2022-11-04] MEDS: diazePAM (*CRX) 5 MG TABLET PO (08:58)
[2022-11-04 09:13] LABS: Basophils Absolute Auto 0.1 K/mm3 (0.0-0.1); Basophils Percent Auto 0.7 % (0.2-1.2); Eosinophils Absolute Auto 0.2 K/mm3 (0-0.3); Eosinophils Percent Auto 2.2 % (0-4.4); Hematocrit 47.4 % (37.0-47.0); Hemoglobin 15.8 g/dL (12.0-15.0); Immature Granulocyte Absolute 0.02 K/mm3 (0.00-0.031); Immature Granulocyte Percent A 0.3 % (0-0.5); Lymphocytes Percent Auto 23.7 % (18.3-44.2); Mean Corpuscular HGB Conc 33.3 g/dl (32-36); Mean Corpuscular Hemoglobin 32.4 pg (26-34); Mean Corpuscular Volume 97.3 fl (80-100); Mean Platelet Volume 12.4 fl (7.4-10.4); Monocytes Absolute Auto 0.5 K/mm3 (0.1-0.6); Monocytes Percent Auto 5.9 % (2.6-8.5); Neutrophils Absolute Auto 5.1 K/mm3 (1.3-6.7); Neutrophils Percent Auto 67.2 % (45.5-73.1); Platelet Count Result 220 k/mm3 (150-375); Red Blood Count 4.87 M/mm3 (4.2-5.4); Red Cell Distribution Width 12.9 % (11.5-14.5); White Blood Count 7.6 K/mm3 (4.5-10.0)
[2022-11-04 09:24] LABS: Alanine Aminotransferase 19 U/L (6-35); Albumin Level 4.2 g/dL (3.5-5.1); Alkaline Phosphatase 63 U/L (38-126); Anion Gap 4 mmol/L (8-16); Aspartate Amino Transferase 25 U/L (14-36); Bilirubin,Total 0.5 mg/dL (0.2-1.3); Blood Urea Nitrogen 10 mg/dL (7-17); Carbon Dioxide 25 mmol/L (22-30); Chloride 106 mmol/L (98-107); Estimated CRCL calculation 87 ml/min; Estimated Glomerular Filt Rate > 60; Glucose 111 mg/dL (65-110); Magnesium 2.2 mg/dL (1.6-2.3); Sodium 135 mmol/L (137-145)
[2022-11-04 09:36] LABS: Troponin I < 0.012 ng/mL (0.000-0.034)
[2022-11-04 10:36] VITALS: BP 186/95; PULSE 70; PULSE 73; RESP 18; O2SAT 98
[2022-11-04] MEDS: KETOROLAC 15 MG/ML VIAL (*BKC) IV PUSH (10:41)
[2022-11-04 11:50] VITALS: BP 177/97; PULSE 82; RESP 18; O2SAT 99
== END 2022-11-04 11:50 | disposition home or self-care (01) ==
PROVIDERS: Emergency Provider Student in an Organized Health Care Education/Training Program; PCP Internal Medicine
DX: M54.12 Radiculopathy, cervical region (principal); Z79.82 Long term (current) use of aspirin; I10 Essential (primary) hypertension; E78.5 Hyperlipidemia, unspecified; E66.9 Obesity, unspecified; Z68.32 Body mass index [BMI] 32.0-32.9, adult; K21.9 Gastro-esophageal reflux disease without esophagitis; F17.210 Nicotine dependence, cigarettes, uncomplicated
CPT/HCPCS: 36415; 71046; 80053; 83735; 84484; 85025; 93005; 96374; 99284; A9270; J1885

== ENCOUNTER → 2022-11-06 08:29 | Outpatient (CLI) | payer BC, SELFPAY ==
--- NOTE | ~2022-11-06 | CT_ITS ---
EXAMINATION: CT abdomen pelvis wo con DATE: 11/06/2022 08:46 INDICATION: Lower abdominal pain TECHNIQUE: Computed tomography (CT) of the abdomen and pelvis was performed without intravenous contr ast. The dose-length product (DLP) was 930.33 mGy-cm. Automated exposure control and iterative recons truction technique were employed. COMPARISON: 09/28/2022 FINDINGS: Minimal dependent atelectasis is present in the lung bases. The heart size is normal. Punct ate calcifications in an otherwise normal spleen likely represent healed granulomatous disease. The l iver, pancreas, and adrenal glands are normal. There are changes of cholecystectomy. The left kidney demonstrates mild cortical thickening. The right kidney is unremarkable. No pathologically enlarged a bdominal or pelvic lymph nodes are identified. There are changes of interval spigelian hernia repair. Mild stranding of the adjacent left lower quadrant fat likely reflects postsurgical inflammatory gauri nge. There is a 1.8 x 1.1 cm hyperdense soft tissue tissue density nodule superficial to the hernia r epair which could reflect a small postoperative hematoma. No free intraperitoneal gas or evidence of bowel obstruction. IMPRESSION: 1. Changes of interval spigelian hernia repair with probable mild adjacent postsurgical inflammatory change. Small soft tissue density nodule superficial to the hernia repair may reflect a postoperative hematoma. Reviewed, dictated and finalized at location A. IMPRESSION: 1. Changes of interval spigelian hernia repair with probable mild adjacent post surgical inflammatory change. Small soft tissue density nodule superficial to t he hernia repair may reflect a postoperative hematoma.
== END ==
PROVIDERS: PCP Internal Medicine; Visit Provider Surgery
DX: R10.30 Lower abdominal pain, unspecified (principal); Z98.890 Other specified postprocedural states
CPT/HCPCS: 74176

== ENCOUNTER 2022-11-22 09:18 | Emergency (ER) | payer BC, SELFPAY ==
[2022-11-22 09:53] VITALS: BP 147/99; PULSE 122; RESP 16; TEMP 36.4; O2SAT 97
--- NOTE | 2022-11-22 10:04 | ECG_ITS ---
Measurements Intervals [place] Rate: 97 P: 58 [place]: 118 QRS: 61 QRSD: 97 T: 25 QT: 349 QTc: 445 Interpretive Statements SINUS RHYTHM WITH SHORT [place] INTERVAL ST-T WAVE ABNORMALITY IN ANTEROLAT/INF LEADS- CONSIDER ISCHEMIA BASELINE ARTIFACT- I, III, AVR, AVL, V2, V4-V6 BORDERLINE ECG COMPARED TO ECG 11/04/2022 09:14:24 ST-T WAVE ABNORMALITY NOW PRESENT Electronically Signed On 11-22-2022 11:53:02 CDT by Tanner Marino D.O.
--- NOTE | 2022-11-22 11:05 | ED.NAVMDI ---
HPI - Nausea/Vomiting/Diarrhea General Chief complaint: Nausea/Vomiting/Diarrhea Stated complaint: dr gallo n/v Time Seen by Provider: 11/22/22 11:05 Source: patient Mode of arrival: ambulatory Limitations: no limitations History of Present Illness HPI Narrative: Haritha is a 57-year-old female patient presenting to the ER today for nausea and vomiting. She reports that she was treated in urgent care few days ago for any urinary tract infection. Thinks that the antibiotics may be causing her nausea. She denies any fever, chills, back pain, or abdominal pain. Has some chronic neck pain due to a bone spur/pinched nerve. Denies any chest pain Related Data Home Medications Medication Instructions Recorded Confirmed aspirin 81 mg tablet,delayed 81 mg PO DAILY 07/06/22 10/24/22 release (Adult Aspirin Regimen) Allergies Allergy/AdvReac Type Severity Reaction Status Date / Time No Known Allergies Allergy Verified 11/22/22 09:19 Review of Systems Review of Systems: Pertinent positives per HPI. Patient denies any fever, chills, rash, headache, visual changes, dizziness, cough, runny nose, sore throat, shortness of breath, chest pain, palpitations, nausea, vomiting, diarrhea, constipation, abdominal pain, or any urinary issues. [facility] Past Medical History Medical History Anxiety Benign essential HTN COPD (chronic obstructive pulmonary disease) DJD (degenerative joint disease) DEIDRE (generalized anxiety disorder) GERD (gastroesophageal reflux disease) Hyperlipidemia Kidney stones Marijuana abuse MDD (major depressive disorder), recurrent episode, moderate Obesity (BMI 30-39.9) DEVENDRA (obstructive sleep apnea) Tachycardia Tobacco use Tobacco use disorder, mild, abuse Surgical History Surgical History H/O hernia repair 10/08/22 robotic assisted repair left Spigelian hernia with mesh, defect measuring approximately 3.5 cm History of bladder surgery 06/24/2019 with revision 09/07/19 History of hysterectomy 04/1997 History of lithotripsy S/P arthroscopy of right shoulder S/P cholecystectomy S/P left knee arthroscopy 10/02/2014 S/P removal of left ovary 09/01/1996 S/P right knee surgery Family History Family History Mother Family history of osteoporosis Hypertension Family history of dementia age 85 Sibling Hypertension Family history of alcoholism Renal failure brother age 64 Father Malignant neoplasm of prostate Family history of congestive heart failure Family history of heart disease in male family member before age 55 Family history of cardiovascular disease, Onset Age: 68 Hypertension Acute myocardial infarction age 68 Grandparent Family history of pancreatic cancer Daughter Hypertension Other Family history of arthritis Social History Social History Social History: Single Smoking packs per day: 1 Smoking cigarettes per day: 20.0 Years smoked: 40 Smoking pack-years: 40.00 Smoking status: Current every day smoker Tobacco type: cigarettes Second hand tobacco smoke exposure: Yes Additional smoking assessment comments: Down to 1/2 pack a day. Alcohol intake: never Substance use: current Substance use type: marijuana Other substance usage details: For pain Lack of Transportation: No Lack of Food: Never True Current Housing: I Have Housing Concerned About Future Housing: No Difficulty Paying Gas/Electric Bills: No Difficulty Paying for Meds: No Currently Unemployed: No Education: Decline to Answer Difficulty w/ Childcare or Family Care: No Living arrangements: alone Occupation/Education: occupation Gender identity (if verbalized by the patient):
[2022-11-22 11:17] LABS: Alanine Aminotransferase 27 U/L (6-35); Albumin Level 4.8 g/dL (3.5-5.1); Alkaline Phosphatase 126 U/L (38-126); Anion Gap 15 mmol/L (8-16); Aspartate Amino Transferase 25 U/L (14-36); Blood Urea Nitrogen 13 mg/dL (7-17); Calcium 10.1 mg/dL (8.4-10.2); Carbon Dioxide 24 mmol/L (22-30); Chloride 94 mmol/L (98-107); Estimated Glomerular Filt Rate 57; Glucose 159 mg/dL (65-110); Potassium 4.3 mmol/L (3.4-5.0); Sodium 133 mmol/L (137-145)
[2022-11-22 11:20] LABS: Appearance Urine Cloudy (Clear); Bacteria Urine None Seen /hpf; Bilirubin Urine 2+ (Negative); Color Urine Dark Yellow (Yellow); Glucose Urine UA Negative (Negative); Hyaline Casts Urine Present /lpf; Ketones Urine Trace mg/dL (Negative); Leukocyte Esterase Ur Trace LEU/UL (Negative); Need Manual Microscopic Reviewed; Nitrate Urine Negative (Negative); Non Pathogenic Casts >20; Protein Urine 3+ mg/dL (Negative); Specific Grav Ur 1.025 (1.001-1.035); Squamous Epithelial Cell Urine Many /hpf (Few); WBC Urine 21-50 /hpf; pH Urine 5.5 (5.0-9.0)
[2022-11-22 11:21] LABS: Add Urine Microscopic? YES
[2022-11-22] MEDS: SODIUM CHLORIDE 0.9% IV 1,000 ML 999 ML IV CONT (11:50)
[2022-11-22] MEDS: ONDANSETRON INJ 4 MG/2 ML VIAL IV PUSH (11:50)
[2022-11-22 12:28] VITALS: BP 140/85; PULSE 79; RESP 18; O2SAT 100
[2022-11-22 13:41] VITALS: BP 135/76; PULSE 80; RESP 18; O2SAT 100
[2022-11-22 14:16] LABS: Basophils Absolute Auto 0.1 K/mm3 (0.0-0.1); Basophils Percent Auto 0.6 % (0.2-1.2); Eosinophils Percent Auto 0.2 % (0-4.4); Hematocrit 53.4 % (37.0-47.0); Hemoglobin 17.9 g/dL (12.0-15.0); Immature Granulocyte Percent A 0.8 % (0-0.5); Lymphocytes Absolute Auto 2.04 K/mm3 (0.9-3.2); Lymphocytes Percent Auto 16.1 % (18.3-44.2); Mean Corpuscular HGB Conc 33.5 g/dl (32-36); Mean Corpuscular Hemoglobin 32.3 pg (26-34); Mean Corpuscular Volume 96.2 fl (80-100); Mean Platelet Volume 12.2 fl (7.4-10.4); Monocytes Absolute Auto 1.3 K/mm3 (0.1-0.6); Monocytes Percent Auto 10.2 % (2.6-8.5); Neutrophils Absolute Auto 9.2 K/mm3 (1.3-6.7); Neutrophils Percent Auto 72.1 % (45.5-73.1); Platelet Count Result 263 k/mm3 (150-375); Red Blood Count 5.55 M/mm3 (4.2-5.4); Red Cell Distribution Width 12.4 % (11.5-14.5); White Blood Count 12.7 K/mm3 (4.5-10.0)
[2022-11-22 14:22] LABS: Lipase 86 U/L (23-300)
[2022-11-22 14:24] VITALS: BP 146/97; PULSE 96; RESP 18; O2SAT 99
[2022-11-22 14:35] LABS: Troponin I < 0.012 ng/mL (0.000-0.034)
== END 2022-11-22 15:06 | disposition home or self-care (01) ==
PROVIDERS: Emergency Medicine; Emergency Provider Nurse Practitioner Family; PCP Internal Medicine
DX: N30.01 Acute cystitis with hematuria (principal); R11.2 Nausea with vomiting, unspecified; I10 Essential (primary) hypertension; J44.9 Chronic obstructive pulmonary disease, unspecified; E78.5 Hyperlipidemia, unspecified; G47.33 Obstructive sleep apnea (adult) (pediatric); K21.9 Gastro-esophageal reflux disease without esophagitis; E66.9 Obesity, unspecified; F41.1 Generalized anxiety disorder; F17.210 Nicotine dependence, cigarettes, uncomplicated; Z87.442 Personal history of urinary calculi; Z90.710 Acquired absence of both cervix and uterus; Z90.49 Acquired absence of other specified parts of digestive tract; Z79.82 Long term (current) use of aspirin; R94.31 Abnormal electrocardiogram [ECG] [EKG]
CPT/HCPCS: 36415; 80053; 81001; 83690; 84484; 85025; 87086; 87088; 93005; 96361; 96374; 99284; J2405; J7030

== ENCOUNTER 2023-07-22 18:24 | Emergency (ER) | payer BC, SELFPAY ==
[2023-07-22 18:24] VITALS: BP 156/80; PULSE 108; RESP 17; TEMP 36.7; O2SAT 96
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
[2023-07-22] MEDS: oxyCODONE/ACETAMINOPHEN (*CRX) 5-325 MG TABLET 1 TABLET PO (18:54)
[2023-07-22] MEDS: IBUPROFEN 400 MG TABLET 800 MG PO (18:54)
[2023-07-22] MEDS: SILVER SULFADIAZINE 1% CR 50 GM JAR (*BKC) 1 APPLIC TOPICAL (18:55)
[2023-07-22 19:06] VITALS: BP 133/80; PULSE 99; RESP 17; TEMP 36.7; O2SAT 95
== END 2023-07-22 19:06 | disposition home or self-care (01) ==
LOC: CHSED 18:57
PROVIDERS: Emergency Provider Emergency Medicine; PCP Internal Medicine
DX: T24.022A Burn of unspecified degree of left knee, initial encounter (principal); X11.8XXA Contact with other hot tap-water, initial encounter; Z79.82 Long term (current) use of aspirin; I10 Essential (primary) hypertension; K21.9 Gastro-esophageal reflux disease without esophagitis; E78.5 Hyperlipidemia, unspecified; Z87.891 Personal history of nicotine dependence
CPT/HCPCS: 99283; A9270

== ENCOUNTER 2023-08-16 10:17 | Outpatient (CLI) | payer BC, SELFPAY ==
--- NOTE | ~2023-08-16 | MM_ITS ---
EXAMINATION: MM screening lesly BI w abeba HISTORY: Screening TECHNIQUE: Craniocaudal and mediolateral oblique 3-D tomosynthesis images were obtained and synthetic 2-D images were generated. CAD analysis was submitted and interpreted. COMPARISON: 07/03/2022 BREAST PARENCHYMAL COMPOSITION: Not dense: There are scattered areas of fibroglandular density. FINDINGS: There are developing asymmetries centered in the upper outer quadrant of the left breast. T he right breast is stable without evidence for malignancy. IMPRESSION: 1. Developing left breast asymmetries. 2. Additional mammographic views and possible breast ultrasound are recommended. BI-RADS Category 0: Incomplete: Needs additional imaging evaluation. Reviewed, dictated and finalized at location B. IMPRESSION: 1. Developing left breast asymmetries. 2. Additional mammographic views and possible breast ultrasound are recommended . BI-RADS Category 0: Incomplete: Needs additional imaging evaluation.
== END 2023-08-16 10:18 | disposition home or self-care (01) ==
LOC: ANHIMG 10:20
PROVIDERS: PCP Internal Medicine; Visit Provider Internal Medicine
DX: Z12.31 Encounter for screening mammogram for malignant neoplasm of breast (principal); N64.89 Other specified disorders of breast
CPT/HCPCS: 77063; 77067

== ENCOUNTER 2023-09-04 08:23 | Outpatient (CLI) | payer BC, SELFPAY ==
--- NOTE | ~2023-09-04 | XR_ITS ---
EXAMINATION: XR barium swallow modified DATE: 09/04/2023 09:17 INDICATION: Dysphagia. TECHNIQUE: The patient was given barium-containing material of multiple consistencies to swallow by t he speech pathologist while I performed fluoroscopy. Fluoroscopy exposure time was 0.9 minutes. The n umber of fluoroscopy images saved to the PACS was 1. Dose-area product was 0.589 Gy-cm^2. FINDINGS: The oral stage, pharyngeal stage, and cervical/esophageal stage of the swallow are normal. IMPRESSION: 1. Normal modified barium swallow. 2. Please refer to the speech therapy report for recommendations. Reviewed, dictated and finalized at location A.
--- NOTE | ~2023-09-04 | CT_ITS ---
EXAMINATION:CT lung screening DATE: 09/04/2023 08:50 INDICATION: Personal history of nicotine dependence. Current smoker with 31 pack year history. TECHNIQUE: Computed tomography (CT) of the chest was performed without intravenous contrast. Automate d exposure control and iterative reconstruction technique were employed. The dose-length product (DLP ) was 111.48 mGy-cm. COMPARISON: Chest CT 04/27/2022 FINDINGS: There is mild emphysema. There is a 3 mm nodule in right upper lobe. There is mild scarring at the lung apices. Calcified left lung nodules and calcified left hilar and mediastinal lymph nodes are consistent with old granulomatous disease. No pleural effusion. The heart size is normal. There are coronary artery calcifications. No pericardial effusion. There are changes of cholecystectomy. Ca lcifications in the spleen are consistent with old granulomatous disease. There is a suture anchor in right humeral head. There is mild thoracic spondylosis. There is severe thoracic spondylosis. IMPRESSION: 1. Lung-RADS category 2: Benign appearance or behavior. Continue annual screening with noncontrast lo w-dose chest CT in 12 months. Reviewed, dictated and finalized at location A. IMPRESSION: 1. Lung-RADS category 2: Benign appearance or behavior. Continue annual screeni ng with noncontrast low-dose chest CT in 12 months.
--- NOTE | 2023-09-04 09:26 | REHSTMBS ---
Assessment and note entered by ABHIJIT Jesus Modified Barium Swallow Evaluation Feeding Type Recommended Oral Food Consistency Regular, Easy to Chew (7) Liquid Consistency Thin (0) ST Clinical Summary MODIFIED BARIUM SWALLOW STUDY This patient was seen for a Modified Barium Swallow study at the request of her physician. Patient reports poor dentition including loss of teeth and loose teeth and therefore she has been modifying her food in the past several months. She reports that perhaps she is taking too large of bites causing her to feel that food becomes caught in her throat and/or causing her to cough and/or choke. She reports concern for cancer, concern for a Schotsky's ring which her has been diagnosed with, and other various ailments that could be contributing to her complaints. Patient was viewed in the lateral position to the level of C5/C6. She was presented with thin liquid contrast medium per cup and the per straw, a bite of pudding mixed with semi-solid contrast medium, and also two pieces of fruit cocktail and then two pieces of jn cracker, both presentations coated with the semi-solid contrast medium. On each presentation, swallows were elicted in a timely manner with no evidence of penetration/ aspiration and no risk for aspiration as all material cleared the pharynx after each swallow. No residual was noted and no issues with the esophagus were noted at the level in the area of C5/C6. Testing was terminated as swallowing skills were judged to be within normal limits. Results suggest patient may remain on Regular Diet and Liquid consistencies. She was instructed to make soft food choices and have the knife and fork do the work of the teeth by cutting solids into smaller pieces and avoiding certain hard to chew foods. Additionally, head flexion may facilitate movement of material through the pharynx to reduce risk of items hanging up in the throat. She voiced understanding of results and recommendations and no additional Speech Therapy is indicated. Thank you for this referral.
== END 2023-09-04 08:24 | disposition home or self-care (01) ==
PROVIDERS: PCP Internal Medicine; Visit Provider Internal Medicine
DX: Z12.2 Encounter for screening for malignant neoplasm of respiratory organs (principal); F17.210 Nicotine dependence, cigarettes, uncomplicated; R92.8 Other abnormal and inconclusive findings on diagnostic imaging of breast
CPT/HCPCS: 71271; 92611

== ENCOUNTER 2023-09-04 12:17 | Outpatient (CLI) | payer BC, SELFPAY ==
--- NOTE | ~2023-09-04 | MMUS_ITS ---
EXAMINATION: MM diagnostic lesly LT w abeba, US breast LT complete HISTORY: Follow-up left breast asymmetries TECHNIQUE: Additional 3-D tomosynthesis images of the left breast were performed and synthetic 2-D im ages were generated. CAD analysis was submitted and interpreted. High resolution complete left breast ultrasound was performed. COMPARISON: Comparison to multiple prior studies sequentially, with oldest reviewed study dated 07/03. BREAST PARENCHYMAL COMPOSITION: . Not dense: There are scattered areas of fibroglandular density. FINDINGS: MAMMOGRAPHIC FINDINGS: There are persistent asymmetries in the left breast, although no discrete mass is identified. There a re no suspicious calcifications or architectural distortion. ULTRASOUND: Complete US of all 4 quadrants of the left breast and retroareolar region was reviewed. At 2:00, 7 cm from the nipple, there is an oval parallel oriented hypoechoic 5 mm mass without posterior features or internal vascularity, likely benign. No other masses are identified. IMPRESSION: 1. Probable benign left breast mass at 2:00, 7 cm from the nipple. 2. Recommend 6 month follow-up diagnostic left mammogram and Limited left breast ultrasound BI-RADS category 3, probably benign findings. Reviewed, dictated and finalized at location B. IMPRESSION: 1. Probable benign left breast mass at 2:00, 7 cm from the nipple. 2. Recommend 6 month follow-up diagnostic left mammogram and Limited left breas t ultrasound BI-RADS category 3, probably benign findings.
== END 2023-09-04 12:18 | disposition home or self-care (01) ==
LOC: ANHIMG 12:19
PROVIDERS: PCP Internal Medicine; Visit Provider Internal Medicine
DX: R92.8 Other abnormal and inconclusive findings on diagnostic imaging of breast (principal)
CPT/HCPCS: 71271; 76641; 77061; 77065; 92611; G0279

== ENCOUNTER 2024-01-16 14:52 | Outpatient (CLI) | payer BC, SELFPAY ==
--- NOTE | ~2024-01-16 | DEXA_ITS ---
Bone Density Report Name: NERY DOZIER Age: 58 Sex: Female Ethnicity: Reed Date of : 1965 Indication: postmenopausal; screening for osteoporosis; height loss; hysterectomy; Referring Provider: EPI SALINAS Study: Bone densitometry was performed. Exam Date: January 16, 2024 Accession number: [id number] Bone Density: Region BMD T-score Z-score Classification AP Spine(L1-L4) 0.774 -2.5 -1.0 Osteoporosis Femoral Neck (Left) 0.718 -1.2 0.1 Osteopenia Total Hip (Left) 0.871 -0.6 0.4 Normal Femoral Neck (Right) 0.770 -0.7 0.6 Normal Total Hip (Right) 0.873 -0.6 0.4 Normal Total Hip Mean 0.872 -0.6 0.4 Normal World Health Organization criteria for BMD impression classify patients as: Normal (T-score at or above -1.0), Osteopenia (T-score between -1.0 and -2.5), or Osteoporosis (T-score at or below -2.5). 10-year Fracture Risk: FRAX not reported because: Some T-score for Spine Total or Hip Total or Femoral Neck at or below -2.5 Clinical Information Provided by Patient: Smokes Has used the following medications: Vitamin D Has the following medical conditions: Hysterectomy Patient maximum height was 65 Menopause Age: 56 No regular weight bearing exercise Drinks caffeinated beverages Onset of menses at age 10 Number of children 2 Impression: The patient has osteoporosis, based on the Total Spine T-score. The patient has risk factors, including: smoking. Discussion: INCREASED RISK OF FRACTURE. BONE DENSITY IS UNDESIRABLY LOW AT ONE OR MORE SKELETAL SITES, CONSISTENT WITH POSTMENOPAUSAL OSTEOPOROSIS. This patient's lowest T-score meets the World Health Organization's (WHO) criteria for osteoporosis at one or more sites (T-score -2.5 or below). In untreated patients, the risk of osteoporotic fracture increases approximately two-fold for each 1.0 SD decrease in T-score. Low bone density is not the only risk factor for fracture; also consider factors such as patient's age, frailty or poor health, risk of falling, risk of injury, previous osteoporotic fracture, family history of osteoporosis, cigarette smoking, low body weight, etc. Not everyone with low bone mineral density has osteoporosis; osteomalacia and other metabolic bone disorders should also be considered. Patients who have osteoporosis should be evaluated for specific diseases and conditions (secondary causes) that may cause or contribute to bone loss. The [place] Association [employer] Clinical Endocrinologists (AACE) and National Osteoporosis Foundation (NOF) recommend pharmacologic intervention for all postmenopausal women whose T-score is in this range. The patient should follow a healthful lifestyle (good nutrition with adequate calcium and vitamin D, and appropriate weight-bearing exercise). Follow-Up: Consider a repeat BMD and Vertebral Fracture Assessment (VFA) exam in 2 years or sooner if medically necessary, to reassess this patient's status. Reported by: TYLER on 01/16/2024 3:29:00 PM. Reviewed, dictated and finalized at location [facility]
== END 2024-01-16 14:53 | disposition home or self-care (01) ==
LOC: ANHIMG 14:55
PROVIDERS: PCP Internal Medicine; Visit Provider Internal Medicine
DX: M81.0 Age-related osteoporosis without current pathological fracture (principal); M85.852 Other specified disorders of bone density and structure, left thigh
CPT/HCPCS: 77080

== ENCOUNTER 2024-03-06 10:48 | Outpatient (CLI) | payer BC, SELFPAY ==
--- NOTE | ~2024-03-06 | MMUS_ITS ---
EXAMINATION: MM diagnostic lesly LT w abeba, US breast LT limited HISTORY: Follow-up left breast asymmetry TECHNIQUE: Additional 3-D tomosynthesis images of the left breast were performed and synthetic 2-D im ages were generated. CAD analysis was submitted and interpreted. High resolution Limited left breast ultrasound was performed. COMPARISON: Comparison to multiple prior studies sequentially, with oldest reviewed study dated 07/03. BREAST PARENCHYMAL COMPOSITION: Not dense: There are scattered areas of fibroglandular density. There is a focal asymmetry superiorly in the left breast without discrete mass or architectural distortion . There are no suspicious calcifications. FINDINGS: MAMMOGRAPHIC FINDINGS: Limited left breast ultrasound: ULTRASOUND: Complete US of all 4 quadrants of the breast/s and retroareolar region was reviewed. At 9:00, 3 cm fr om the nipple there is an oval hypoechoic mass measuring 9 x 3 x 2 mm, not definitely seen on prior e xamination. There is mixed posterior attenuation and no internal vascularity. There are circumscribed margins. The mass seen on prior examination at 2:00 is not visualized on the current study. IMPRESSION: 1. Probable benign 9 mm left breast mass at 9:00, 3 cm from the nipple. 2. Recommend 6 month follow-up Limited left breast ultrasound and diagnostic mammogram BI-RADS category 3, probably benign findings. Reviewed, dictated and finalized at location B. ICAL INFORMATICS PHYSICIAN IMPRESSION: 1. Probable benign 9 mm left breast mass at 9:00, 3 cm from the nipple. 2. Recommend 6 month follow-up Limited left breast ultrasound and diagnostic ma mmogram BI-RADS category 3, probably benign findings.
== END 2024-03-06 10:49 | disposition home or self-care (01) ==
LOC: ANHIMG 10:54
PROVIDERS: PCP Internal Medicine; Visit Provider Internal Medicine
DX: N63.20 Unspecified lump in the left breast, unspecified quadrant (principal)
CPT/HCPCS: 76642; 77061; 77065; G0279

== ENCOUNTER 2024-09-04 09:33 | Outpatient (CLI) | payer BC, SELFPAY ==
--- NOTE | ~2024-09-04 | CT_ITS ---
CT Scan of the Chest without Contrast: Clinical Indication: Lung cancer screening, nicotine dependence Technique: Contiguous sections were acquired throughout the chest without intravenous contrast. Dose reduction technique was used on this scan by utilizing automated exposure control and iterative recon struction technique. The dose-length product (DLP) was 122.94 mGy-cm. COMPARISON: 09/04/2023 Findings: There is no evidence of any significant mediastinal, hilar or axillary lymphadenopathy. Calcified med iastinal and left hilar lymph nodes are present. Coronary artery calcium cages are present. There is no evidence of pleural or pericardial effusion. The lungs are clear. No pulmonary nodules or infiltrates are noted. Images through the upper abdomen reveal no abnormalities. Impression: Lung RADS 1: Negative. 12 month follow-up screening CT advised. Reviewed, dictated and finalized at [facility]. Impression: Lung RADS 1: Negative. 12 month follow-up screening CT advised.
== END 2024-09-04 09:34 | disposition home or self-care (01) ==
PROVIDERS: PCP Internal Medicine; Referring Provider Nurse Practitioner; Visit Provider Internal Medicine
DX: Z12.2 Encounter for screening for malignant neoplasm of respiratory organs (principal); Z87.891 Personal history of nicotine dependence
CPT/HCPCS: 71271; 76642; 77062; 77066; G0279

== ENCOUNTER 2024-09-04 11:49 | Outpatient (CLI) | payer BC, SELFPAY ==
--- NOTE | ~2024-09-04 | MMUS_ITS ---
EXAMINATION: MM diagnostic lesly BI w abeba, US breast LT limited HISTORY: Follow-up left breast mass TECHNIQUE: Additional 3-D tomosynthesis images of the breasts were performed and synthetic 2-D images were generated. CAD analysis was submitted and interpreted. High resolution Limited left breast ultr asound was performed. COMPARISON: Comparison to multiple prior studies sequentially, with oldest reviewed study dated 07/03. BREAST PARENCHYMAL COMPOSITION: Not dense: There are scattered areas of fibroglandular density. FINDINGS: MAMMOGRAPHIC FINDINGS: The breasts are stable. No new masses, calcifications or architectural distortion in either breast to suggest malignancy. ULTRASOUND: Limited left breast ultrasound: At 9:00, 3 cm from the nipple there is an oval hypoechoic parallel or iented mass measuring 11 x 3 x 3 mm without internal vascularity or posterior features. This compares to measurements of 9 x 3 x 2 mm on 03/06/2024. IMPRESSION: 1. No significant change to left breast mass at 9:00, 3 cm from the nipple overlying for differences of technique. 2. Recommend 6 month follow-up Limited left breast ultrasound. BI-RADS category 3, probably benign findings. Reviewed, dictated and finalized at location A. IMPRESSION: 1. No significant change to left breast mass at 9:00, 3 cm from the nipple over lying for differences of technique. 2. Recommend 6 month follow-up Limited left breast ultrasound. BI-RADS category 3, probably benign findings.
== END 2024-09-04 11:50 | disposition home or self-care (01) ==
LOC: ANHIMG 11:53
PROVIDERS: PCP Nurse Practitioner; Visit Provider Internal Medicine
DX: N63.20 Unspecified lump in the left breast, unspecified quadrant (principal)
CPT/HCPCS: 76642; 77062; 77066; G0279

== ENCOUNTER 2024-09-25 12:59 | Outpatient (CLI) | payer BC, SELFPAY ==
--- OUTSIDE RECORDS SUMMARY | 2024-09-25 13:07 | XMS_ITS | Encounter Summary ---
Author Organization [facility] Healthcare Address [address] [place] [address] Care Team Providers Care High School Director Name Role Phone Mena Gonsalez NP Primary Care Provider [phone] Reason for Visit * Reason Onset Date Comments Medical Question/Miscellaneous 08/27/2024 Encounter Details Date Type Department Care Team ([facility] Contact Info) Description 08/27/2024 Telephone [facility] Primary Care at [address] [address] Mena Gonsalez NP [address] [place] [address] [address] [place] [address] Medical Question/Miscellaneous Social History Tobacco Use Types Packs/Day Years Used Date Smoking Tobacco: Former Cigarettes 1 43.9 S tarted: 1981 Vaping Passive Smoke Exposure: Past AUDIT-C Answer Date Recorded Q1: How often do you have a drink containing alcohol? Never 07/21/2024 Q2: How many drinks containi ng alcohol do you have on a typical day when you are drinking? Patient does not drink Q3: How often do you have si x or more drinks on one occasion? 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 AC checked the referral and provided Iggy with the CPT Code 72305 Does message need to be routed? No documented in this encounter Plan of Treatment Upcoming Encounters Date Type Department Care Team (Late st Contact Info) Description 11/04/2024 11:30 AM CDT Hospital Encounter [address] [address] Richelle Lopez MD [address] [facility] [address] [place] [address] 11/04/2024 11:30 AM CDT - 11/04/2024 12:30 PM CDT Surgery [address] [address] Richelle Lopez MD [address] [facility] [address] [place] [address] COLONOSCOPY Scheduled Procedures Name Priority Associated Diagnoses Date/Ti me COLONOSCOPY Gastroesophageal reflux disease, unspecified whether esophagitis present Nausea Encounter for screening colonoscopy 11/04/2024 11:30 AM CDT ESOPHAGOGASTRODUODENOSCOPY Gastroesophageal reflux disease, unspecified whether esophagitis present Nausea Encounter for screening colonoscopy 11/04/2024 11:30 AM CDT documented as of this encounter Visit Diagnoses Not on filedocumented in this encounter Care Teams High School Director Relationship Specialty Start Date End Date Mena Gonsalez NP [address] [facility] [address] [place] [address] PCP - General Internal Medicine 07/21/24 documented as of this encounter
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
--- OUTSIDE RECORDS SUMMARY | 2024-09-25 13:07 | XMS_ITS | Encounter Summary ---
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 Gender Identity Female 01/19/2021 4:50 PM CDT Sexual Orientation Straight 01/19/2021 4: 50 PM CDT documented as of this encounter Plan of Treatment Upcoming Encounters Date Type Department Care Team (Late st Contact Info) Description 11/04/2024 11:30 AM CDT Hospital Encounter [facility] [address] [place] [address] Richelle Lopez MD [address] [facility] [address] [place] [address] 11/04/2024 11:30 AM CDT - 11/04/2024 12:30 PM CDT Surgery [address] [address] Richelle Lopez MD [address] [facility] [address] [place] [address] COLONOSCOPY Scheduled Procedures Name Priority Associated Diagnoses Date/Ti me COLONOSCOPY Gastroesophageal reflux disease, unspecified whether esophagitis present Nausea Encounter for screening colonoscopy 11/04/2024 11:30 AM CDT ESOPHAGOGASTRODUODENOSCOPY Gastroesophageal reflux disease, unspecified whether esophagitis present Nausea Encounter for screening colonoscopy 11/04/2024 11:30 AM CDT documented as of this encounter Visit Diagnoses Not on filedocumented in this encounter Care Teams Ems Educator Relationship Specialty Start Date End Date Mena Gonsalez NP [address] [facility] [address] [place] [address] PCP - General Internal Medicine 07/21/24 documented as of this encounter
--- OUTSIDE RECORDS SUMMARY | 2024-09-25 13:07 | XMS_ITS | Clinical Summary ---
Author Organization [facility] Marissa Cervantes Address [address] [place] [address] Care Team Providers Care Shampoo Assistant Name Role Phone Unavailable Primary Care Provider Unavailabl e Allergies No known active allergies Medications busPIRone (BUSPAR) 10 mg tablet Take 10 mg by mouth 2 times daily. 07/21/2024 Active aspirin (ECOTRIN EC) 81 mg Tablet, Delayed Release (E.C.) Take 81 mg by mouth daily. 07/21/2024 Active Cholecalciferol, Vitamin D3, 50 mcg (2,000 unit) Capsule Take 2,000 Units by mouth daily. 10/17/2023 Active cholecalciferol, Vitamin D3, 50 mcg (2,000 unit) Tablet Take 50 mcg by mouth daily. Active omeprazole (PriLOSEC) 20 mg Capsule, Delayed Release(E.C.) Take 20 mg by mouth daily. 07/21/2024 Active cetirizine (ZyrTEC) 10 mg tablet Take 10 mg by mouth daily. 07/21/2024 Active rosuvastatin (CRESTOR) 40 mg tablet Take 40 mg by mouth daily at bedtime. Active DULoxetine (CYMBALTA) 60 mg Capsule, Delayed Release(E.C.) Take 60 mg by mouth daily. 07/21/2024 Active Active Problems No known active problems Encounters Date Type Department Care Team Description 09/25/2024 12:30 PM CDT Office Visit [facility] Oncology and Hematology - [address] [place] [address] Paxton Amaya MD Polycythemia, secondary (Primary Dx) from Last 3 Months Family History Medical History Relation Name Comments No Known Problems Brother 1 No Known Problems Brother 2 No Known Problems Brother 3 No Known Problems Child 1 No Known Problems Child 2 Heart Disease Father Prostate Cancer Father Heart Disease Maternal Grandmother Pancreatic Cancer Maternal Grandmother No Known Problems Mother No Known Problems Sister Relation Name Status Comments Brother 1 Brother 2 Alive Brother 3 Alive Child 1 Alive Child 2 Alive Father Maternal Grandmother Mother Sister Alive Social History Tobacco Use Types Packs/Day Years Used Date Smoking Tobacco: Former Cigarettes Q uit: 02/16/2024 Smokeless Tobacco: Never Alcohol Use Standard Drinks/Week Comments Never 0 (1 standard drink = 0.6 oz pur e alcohol) Comments Unknown Sex and Gender Information Value Date Recorded Sex Assigned at Not on file Legal Sex Female 3:13 PM CDT Gender Identity Not on file Sexual Orientation Not on file Last Filed Vital Signs Vital Sign Reading Time Taken Comments Blood Pressure 137/78 09/25/2024 12:27 PM CDT Pulse 88 09/25/2024 12:23 PM CDT Temperature 36.5 C (97.7 F) 09/25/2024 12:23 PM CDT Respiratory Rate 16 09/25/2024 12:23 PM CDT Oxygen Saturation 95% 09/25/2024 12:23 PM CDT Inhaled Oxygen Concentration - - Weight 87.3 kg (192 lb 6.4 oz) 09/25/2024 12:23 PM CDT Height 162.6 cm (5' 4) 09/25/2024 12:23 PM CDT Body Mass Index 33.03 09/25/2024 12:23 PM CDT Plan of Treatment Upcoming Encounters Date Type Department Care Team (Late st Contact Info) Description 10/12/2024 4:30 PM CDT Telephone Check Up [facility] Oncology and Hematology - [facility] [address] [place] [address] Paxton Amaya MD [address] [place] [address] Health Maintenance Due Date Last Done Comments Pre-Diabetes and Diabetes Screening 1963 DTAP/TDAP/TD VACCINES (1 - Tdap) 1982 HPV/Cotest (21-29) 02/29/1984 CERVICAL CANCER SCREENING 1993 HPV/Cotest (30-65) 1993 PAP SMEAR 1993 BREAST CANCER SCREENING 2003 COLORECTAL SCREENING 02/29/2008 Colorectal Cancer Screening 02/29/2008 FIT-DNA Q 3 years 02/29/2008 FIT/FOBT Q 1 year 02/29/2008 Flex Sig/CT Colonography Q 5 years 02/29/2008 ZOSTER VACCINE (1 of 2) 2013 RSV VACCINE (60+ or ) (1 - Risk 60-74 years 1-dose series) 2023 INFLUENZA VACCINE (#1) 2024 Preventative Visit- Commercial Completed 07/21/2024 Insurance [facility] BLUE ACCESS/TRUE BLUE PPO
--- OUTSIDE RECORDS SUMMARY | 2024-09-25 13:07 | XMS_ITS | Clinical Summary ---
Author Organization [facility] Address [address] [place] [id number] Care Team Providers Care Manager Decision Support Name Role Phone None, Provider MD Primary Care Provider Unavaila ble Allergies No known active allergies Medications albuterol sulfate HFA 108 (90 Base) MCG/ACT inhaler Inhale 2 puffs into the lungs every 6 (six) hours as needed for Wheezing. Active DULoxetine (CYMBALTA) 60 MG capsule Take 1 capsule (60 mg total) by mouth daily. Active lisinopril (PRINIVIL) 5 MG tablet Take 1 tablet (5 mg total) by mouth daily. Active omeprazole EC (PRILOSEC OTC) 20 MG tablet Take 1 tablet (20 mg total) by mouth daily. Active rosuvastatin (CRESTOR) 40 MG tablet Take 1 tablet (40 mg total) by mouth nightly at bedtime. Active aspirin EC (ECOTRIN) 81 MG tablet Take 1 tablet (81 mg total) by mouth daily. Active cetirizine (ZYRTEC) 10 MG chewable tablet Chew 1 tablet (10 mg total) by mouth daily. Active Vitamin D3 (CHOLECALCIFERO L) 50 mcg tablet Take 1 tablet (50 mcg total) by mouth daily. Active Social History Tobacco Use Types Packs/Day Years Used Date Smoking Tobacco: Never Assessed Comments No Sex and Gender Information Value Date Recorded Sex Assigned at Not on file Legal Sex Female 11:26 AM MUSICAL INSTRUMENT SUPERVISOR Gender Identity Not on file Sexual Orientation Not on file Last Filed Vital Signs Vital Sign Reading Time Taken Comments Blood Pressure 163/115 03/30/2024 11:08 AM MUSICAL INSTRUMENT SUPERVISOR Pulse 96 03/30/2024 11:08 AM MUSICAL INSTRUMENT SUPERVISOR Temperature 36.2 C (97.2 F) 03/30/2024 11:08 AM MUSICAL INSTRUMENT SUPERVISOR Respiratory Rate 18 03/30/2024 11:08 AM MUSICAL INSTRUMENT SUPERVISOR Oxygen Saturation 99% 03/30/2024 11:08 AM MUSICAL INSTRUMENT SUPERVISOR Inhaled Oxygen Concentration - - Weight - - Height - - Body Mass Index - - Plan of Treatment Health Maintenance Due Date Last Done Comments Colorectal Cancer Screening Colonoscopy (10 Years) 1963 Annual Physical 1966 Hepatitis C 1981 DTaP, Tdap and Td Vaccines ( 1 - Tdap) 1982 Mammogram Screening 2003 Zoster Vaccines (1 of 2) 2013 Pneumococcal Vaccine: 50+ Ye ars (2 of 2 - PCV) 08/13/2019 08/12/2018 COVID-19 Vaccine (2 - 2023-2 5 season) 2023 03/23/2021 RSV Immunization or 60+ Years (1 - 1-dose 75+ series) 2038 Meningococcal B Vaccine Aged Out No l onger eligible based on patient's age to complete this topic Meningococcal Vaccine Aged Out No cliff frederick eligible based on patient's age to complete this topic RSV Immunizations Under 20 Months Aged Out No longer eligible based on patient's age to complete this topic [place] [place] [address] Care Teams Manager Decision Support Relationship Specialty Start Date End Date None, Provider, PCP - General UNKNOWN PHYSICIAN SPECIALTY 03/30/24
--- OUTSIDE RECORDS SUMMARY | 2024-09-25 13:07 | XMS_ITS | Encounter Summary ---
Author Organization [facility] VICKIE Robison [facility] Address [address] [place] [address] Care Team Providers Care Manager Mission Name Role Phone Unavailable Primary Care Provider Unavailabl e Reason for Referral * Laboratory Services (Routine) - Open Specialty Diagnoses / Procedures Referred By Romy t Referred To Contact Diagnoses Polycythemia, secondary Procedures JAK2 MUTATION Paxton Amaya MD [address] [place] [id number] Phone: tel: fax: Referral ID Status Reason Start Date Expiration Date Visits Re quested Visits Authorized [id number] Open 09/25/2024 10/26/2025 1 1 Encounter Details Date Type Department Care Team (Late st Contact Info) Description 09/25/2024 12:30 PM CDT Office Visit [facility] - [facility] [address] [facility] [facility] [facility] [address] [place] [address] Paxton Amaya MD [address] [place] [address] Polycythemia, secondary (Primary Dx) Social History Tobacco Use Types Packs/Day Years [...] on file Sexual Orientation Not on file documented as of this encounter Last Filed Vital Signs Vital Sign Reading [...] Mass Index 33.03 09/25/2024 12:23 PM CDT documented in this encounter Plan of Treatment Upcoming Encounters Date Type Department Care Team (Late st Contact Info) Description 10/12/2024 4:30 PM CDT Telephone Check Up [facility] Oncology and Hematology - [place] [address] [place] [address] [facility] [address] [place] [address] Paxton Amaya MD [address] [facility] [address] [place] [address] Scheduled Orders Name Type Priority Associated Diagnoses Orde r Schedule ERYTHROPOIETIN LEVEL Lab Routine Polycythemia, secondary Expected: 09/25/2024, Expires: 09/25/2025 JAK2 MUTATION Lab Routine Polycythemia, secondary Expected: 09/25/2024, Expires: 09/25/2025 COMPREHENSIVE METABOLIC PANEL Lab Stat Polycythemia, secondary Expected: 09/25/2024, Expires: 09/25/2025 CBC WITH DIFFERENTIAL Lab Stat Polycythemia, secondary Expected: 09/25/2024, Expires: 09/25/2025 documented as of this encounter Visit Diagnoses Diagnosis Polycythemia, secondary- Primary documented in this encounter
--- OUTSIDE RECORDS SUMMARY | 2024-09-25 13:07 | XMS_ITS | Clinical Summary ---
Author Organization [facility] Address [address] [place] [address] Care Team Providers Care Package Dyeing Machine Operator Name Role Phone Henrietta Meek MD Primary Care Provider + Source Comments [facility],non-owned Affiliates and Associated Physician Practices is amultiple site organization consisting of ambulatory clinics and hospital sitesin [place], [place], [place] and [place]. This disclosure is being madepursuant to the Care Everywhere program and may not contain all information available regarding this patient. Last updated 17.[facility] Allergies No known active allergies Medications * Be aware that medications may not be up to date on this document. Alwaysverify current medications with the patient. rosuvastatin (CRESTOR) 40 MG tablet Take 40 mg by mouth once daily 11/03/2020 Active amitriptyline (ELAVIL) 25 MG tablet Take 25 mg by mouth at bedtime 06/28/2021 Active meloxicam (MOBIC) 15 MG tablet Take 15 mg by mouth once daily 03/27/2021 Active omeprazole (PRILOSEC) 20 MG capsule Take 20 mg by mouth once daily 08/27/2021 Active pregabalin (LYRICA) 150 MG capsule 08/07/2021 Active propranolol (INDERAL) 20 MG tablet Take 20 mg by mouth every 8 hours as needed For anxiety. 09/22/2021 Active risedronate Sodium (ACTONEL) 150 MG tablet TAKE 1 TABLET BY MOUTH ONCE A MONTH 08/27/2021 Active Active Problems Problem Noted Date Diagnosed Date Chronic obstructive lung disease 11/24/2020 Enthesopathy of hip region 11/24/2020 Neck pain 11/24/2020 Chest pain 08/08/2018 Hyperlipidemia 08/08/2018 Tobacco abuse 08/08/2018 Fatigue 07/16/2018 Anxiety 05/09/2017 Essential hypertension 05/09/2017 Obstructive sleep apnea syndrome 05/09/2017 Family History Medical History Relation Name Comments Arthritis - Osteo Father Asthma Father Hypertension Father Arthritis - Osteo Mother Dementia Mother Hypertension Mother Relation Name Status Comments Father Mother Social History Tobacco Use Types Packs/Day Years Used Date Smoking Tobacco: Every Day Cigarettes Smokeless Tobacco: Never Tobacco Cessation:Ready to Q uit: Yes; Counseling Given: Yes Alcohol Use Standard Drinks/Week Comments Not Currently 0 (1 standard drink = 0.6 oz pur e alcohol) Comments No Sex and Gender Information Value Date Recorded Sex Assigned at Not on file Legal Sex Female 11:48 AM CDT Gender Identity Female 01/27/2021 5:55 PM INSTRUCTIONAL PARAPROFESSIONAL Sexual Orientation Straight 01/27/2021 5: 55 PM INSTRUCTIONAL PARAPROFESSIONAL Last Filed Vital Signs Vital Sign Reading Time Taken Comments Blood Pressure 130/80 10/18/2021 11:24 AM CDT Pulse 66 01/23/2021 10:45 AM INSTRUCTIONAL PARAPROFESSIONAL Temperature 35.9 C (96.6 F) 10/18/2021 11:24 AM CDT Respiratory Rate 16 01/23/2021 10:45 AM INSTRUCTIONAL PARAPROFESSIONAL Oxygen Saturation 99% 01/23/2021 10:45 AM INSTRUCTIONAL PARAPROFESSIONAL Inhaled Oxygen Concentration - - Weight 90.9 kg (200 lb 6.4 oz) 10/18/2021 11:24 AM CDT Height 162.6 cm (5' 4) 10/18/2021 11:24 AM CDT Body Mass Index 34.4 10/18/2021 11:24 AM CDT Plan of Treatment Health Maintenance Due Date Last Done Comments COLOGUARD (AGES 45-75) - COL ON CA SCREENING 1963 COLON MONITORING 1963 COLONOSCOPY - COLON CA SCREENING 1963 CT COLONOGRAPHY - COLON CA SCREENING 1963 Colorectal Cancer Screening 1963 FIT - COLON CA SCREENING 1963 FLEX SIG - COLON CA SCREENING 1963 MAMMOGRAM 1963 HIV SCREENING 1978 HEPATITIS C SCREENING 02/23/1981 DTAP/TDAP/TD VACCINES (1 - Tdap) 1982 PNEUMOCOCCAL VACCINE 50+ (1 of 2 - PCV) 1982 PAP SMEAR 02/29/1984 ZOSTER VACCINE (1 of 2) 2013 SCREENING FOR DIABETES 01/11/2021 Respiratory Syncytial Virus (RSV) Vaccine Pt: or over 60 yrs (1 - Risk 60-74 years 1-dose series) 2023 COVID-19 VACCINE (1 - 2023-2 5 season) 2023 DEPRESSION SCREENING 03/18/2024 INFLUENZA VACCINE (#1) 2024 HEPATITIS B VACCINE Aged Out No longe r eligible based on patient's age to complete this topic HIB VACCINE Aged Out No longer eligi ble based on patient's age to complete this topic HPV VACCINE Aged Out No longer eligi ble based on patient's age to complete this topic MENINGOCOCCAL (Group B) VACC INE SHARED DECISION-MAKING Aged Out No longer eligibl e based on patient's age to complete this topic MENINGOCOCCAL GROUPS A/C/Y/W VACCINE Aged Out No longer eligible b ased on patient's age to complete this topic Insurance ANTHEM ANTHEM Care Teams Package Dyeing Machine Operator Relationship Specialty Start Date End Date Henrietta Meek MD [address] [place] [address] PCP - General Family Medicine 01/18/21
--- OUTSIDE RECORDS SUMMARY | 2024-09-25 13:08 | XMS_ITS | Referral Summary ---
Author Organization [facility] Address [facility] [place] [address] Care Team Providers Care Rn Supplemental Name Role Phone Mena Gonsalez NP Primary Care Provider [phone] Encounters Date Type Department Care Team Description 08/27/2024 Telephone [facility] Primary Care at [address] [phone] Mena Gonsalez NP Medical Question/Miscellane ous 08/21/2024 11:57 AM CDT - 08/21/2024 11:59 PM CDT Hospital Encounter [facility] [address] [place] [phone] Chronic cervical radiculopathy Discharge Disposition: Discharge to home or self care 08/21/2024 11:57 AM CDT - 08/21/2024 11:59 PM CDT Hospital Encounter [facility] [address] [place] [phone] Chronic lumbar radiculopathy Discharge Disposition: Discharge to home or self care 08/13/2024 Results Follow-Up [facility] Primary Care at [address] [phone] Mena Gonsalez NP Folate, Vitamin B12 08/13/2024 8:17 AM CDT - 08/13/2024 11:59 PM CDT Hospital Encounter [address] [phone] Elevated hemoglobin; Elevated hematocrit; Elevated MCV Discharge Disposition: Discharge to home or self care 08/13/2024 8:15 AM CDT Lab [facility] Outpatient Lab at [address] [phone] 07/24/2024 Results Follow-Up [facility] Primary Care at [address] [phone] Mena Gonsalez NP CBC with auto differential, Comprehensive metabolic panel, Lipid panel, Additional followed-up results: 3 07/23/2024 Documentation [facility] Primary Care at [address] [phone] Mena Gonsalez NP 07/23/2024 Results Follow-Up [facility] Primary Care at [address] [phone] Mena Gonsalez NP XR Chest Pa Lateral 2 Views, MRI Lumbar Spine WO Contrast 07/22/2024 Telephone [facility] Gastroenterology at [address] [place] [phone] Corin Rutherford 07/21/2024 9:58 AM CDT - 07/21/2024 11:59 [place] [address] Essential hypertension; Wellness examination; Fatty liver; Mixed hyperlipidemia; Screening for thyroid disorder Discharge Disposition: Discharge to home or self care 07/21/2024 10:15 AM CDT Ancillary Procedure [facility] Imaging at [address] [phone] 07/21/2024 10:00 AM CDT Lab [facility] Outpatient Lab at [address] [phone] 07/21/2024 9:00 AM CDT Office Visit [facility] Primary Care at [address] [phone] Mena Gonsalez NP BMI 31.0-31.9,adult (Primary Dx); Essential hypertension; Mixed simple and mucopurulent chronic bronchitis (HCC); Mixed hyperlipidemia; Anxiety; Obstructive sleep apnea syndrome; Wellness examination; Screening for thyroid disorder; Personal history of nicotine dependence; Vaping nicotine dependence, tobacco product; Fatty liver; Mild episode of recurrent major depressive disorder; Gastroesophageal reflux disease without esophagitis; Screen for colon cancer; Nausea; Chronic cervical radiculopathy; Chronic lumbar radiculopathy; Chest pain, unspecified type from Last 3 Months Allergies No known active allergies Medications cholecalciferol (VITAMIN D-3) 2000 unit capsule Take 1 capsule (2,000 Units total) by mouth daily 4 Active aspirin 81 mg enteric coated tablet Take 1 tablet (81 mg total) by mouth daily 90 tablet 3 5 Active rosuvastatin (CRESTOR) 20 mg tabletIndications:M ixed hyperlipidemia Take 1 tablet (20 mg total) by mouth daily 90 tablet 3 5 Active omeprazole (PriLOSEC) 20 mg capsuleIndications: Gastroesophageal reflux disease without esophagitis Take 1 capsule (20 mg total) by mouth daily 90 capsule [address] (CYMBALTA) 60 mg capsuleIndications: Anxiety Take 1 capsule (60 mg total) by mouth daily 90 capsule 3 5 Active busPIRone (BUSPAR) 10 mg tabletIndications:A nxiety Take 1 tablet (10 mg total) by mouth 2 (two) times a day 180 tablet 3 5 Active cetirizine (ZyrTEC) 10 mg tablet Take 1 tablet (10 mg total) by mouth daily 90 tablet 3 5 Active Active Problems Problem Noted Date Diagnosed Date Gastroesophageal reflux disease 07/22/2024 Encounter for screening colonoscopy 07/22/2024 Personal history of nicotine dependence 07/22/19 25 Assessment & Plan (07/21/2024 12:23 PM CDT): Has not been smoking cigarettes for the last year. Vaping intermittently. Vaping nicotine dependence, tobacco product 08/2024 Assessment & Plan (07/21/2024 12:23 PM CDT): Discussed smoking cessation and different methods to help with that. Patient declines at this time. Discussed the risks of smoking including COPD, CAD, Stroke, lung cancer, and increased risk of premature . Total time spent was 3 minutes. Mild episode of recurrent major depressive disor yris 07/21/2024 Assessment & Plan (07/21/2024 12:23 PM CDT): Gastroesophageal reflux disease without esophagi tis 07/21/2024 Assessment & Plan (07/21/2024 12:23 PM CDT): Orders: omeprazole (PriLOSEC) 20 mg capsule; Take 1 capsule (20 mg total) by mouth daily Ambulatory referral to Gastroenterology; Future Nausea 07/21/2024 Assessment & Plan (07/21/2024 12:23 PM CDT): Referral to GI, recommend EGD Orders: Ambulatory referral to Gastroenterology; Future Chronic cervical radiculopathy 07/21/2024 Assessment & Plan (07/21/2024 12:23 PM CDT): Orders: MRI Cervical Spine WO Contrast; Future Chronic lumbar radiculopathy 07/21/2024 Assessment & Plan (07/21/2024 12:23 PM CDT): Orders: MRI Lumbar Spine WO Contrast; Future BMI 31.0-31.9,adult 07/21/2024 Assessment & Plan (07/21/2024 12:23 PM CDT): -Continue following a heart healthy diet with regular physical activity as tolerated Family history of stroke 02/02/2021 Chronic obstructive lung disease 11/24/2020 Assessment & Plan (07/21/2024 12:23 PM CDT): Chest x-ray ordered. Denies any current symptoms. Not currently medicated. Physical exam clean Neck pain 11/24/2020 Fatty liver 03/04/2019 Assessment & Plan (07/21/2024 12:23 PM CDT): Orders: Comprehensive metabolic panel; Future Hyperlipidemia 08/08/2018 Assessment & Plan (07/21/2024 12:23 PM CDT): Fasting lipid panel ordered. Continue Crestor 20mg daily. Refills sent to patients requested pharmacy. Discussed medication desired effects, potential side effects, and how to administer the medication. Nonpharmacological interventions such as low carb diet, high in vegetables and fruit discussed. Educated on importance of physical activity. Follow up in 6 months or sooner if needed. Patient verbalizes understanding regarding plan of care and all questions answered Orders: rosuvastatin (CRESTOR) 20 mg tablet; Take 1 tablet (20 mg total) by mouth daily Lipid panel; Future Anxiety 05/09/2017 Assessment & Plan (07/21/2024 12:23 PM CDT): Orders: DULoxetine DR (CYMBALTA) 60 mg capsule; Take 1 capsule (60 mg total) by mouth daily busPIRone (BUSPAR) 10 mg tablet; Take 1 tablet (10 mg total) by mouth 2 (two) times a day Essential hypertension 05/09/2017 Assessment & Plan (07/21/2024 12:23 PM CDT): Currently not medicated. Blood pressure within normal limits. We will continue to monitor. Orders: CBC with auto differential; Future Obstructive sleep apnea syndrome 05/09/2017 Assessment & Plan (07/21/2024 12:23 PM CDT): Denies any current issues. Currently not being treated Resolved Problems Problem Noted Date Diagnosed Date Resolved Date Enthesopathy of hip region 11/24/2020 0 07/21/2024 Chest pain 08/08/2018 07/21/2024 Screening for other and unsp ecified cardiovascular conditions 08/08/2018 07/21/2024 Tobacco abuse 08/08/2018 07/21/2024 Fatigue 07/16/2018 07/21/2024 Immunizations Immunization Administration Dates Next Due Pneumococcal Polysaccharide PPV23 08/12/2018 Tetanus Toxoid, Unspecified 12/16/2008 Social History Tobacco Use Types Packs/Day Years Used Date Smoking Tobacco: Former Cigarettes 1 43.9 S tarted: 1980 Vaping Passive Smoke Exposure: Past Tobacco Cessation:Counseling Given: Not Answered AUDIT-C Answer Date Recorded Q1: How often [...] on file Legal Sex Female 2:42 AM [employer] Gender Identity Female 01/19/2021 4:50 PM CDT Sexual Orientation Straight 01/19/2021 4: 50 PM CDT Last Filed Vital Signs Vital Sign Reading Time Taken Comments Blood Pressure 134/70 07/21/2024 8:52 AM CDT Pulse 90 07/21/2024 8:52 AM CDT Temperature 36.7 C (98 F) 07/21/2024 8:52 AM CDT Respiratory Rate 16 07/21/2024 8:52 AM CDT Oxygen Saturation 97% 07/21/2024 8:52 AM CDT Inhaled Oxygen Concentration - - Weight 84.4 kg (186 lb) 07/21/2024 8:52 AM CDT Height 163.8 cm (5' 4.5) 07/21/2024 8:52 AM CDT Body Mass Index 31.43 07/21/2024 8:52 AM CDT Plan of Treatment Upcoming Encounters Date Type Department Care Team (Late st Contact Info) Description 11/04/2024 11:30 AM CDT Hospital Encounter [address] [address]Richelle Bowens MD [address] [facility] [place] [address] 11/04/2024 11:30 AM CDT - 11/04/2024 12:30 PM CDT Surgery [address] [address]Richelle Bowens MD [address] [facility] [place] [address] COLONOSCOPY Scheduled Procedures Name Priority Associated Diagnoses Date/Ti me COLONOSCOPY Gastroesophageal reflux disease, unspecified whether esophagitis present Nausea Encounter for screening colonoscopy 11/04/2024 11:30 AM CDT ESOPHAGOGASTRODUODENOSCOPY Gastroesophageal reflux disease, unspecified whether esophagitis present Nausea Encounter for screening colonoscopy 11/04/2024 11:30 AM CDT Procedures Procedure Name Priority Date/Time Associated Diagnosis Comments MRI CERVICAL SPINE WO CONTRAST Schedule Routine, Read Routine (OP Routine) 08/21/2024 1:11 PM CDT Chronic cervical radiculopathy MRI LUMBAR SPINE WO CONTRAST Schedule Routine, Read Routine (OP Routine) 08/21/2024 1:11 PM CDT Chronic lumbar radiculopathy VITAMIN B12 Routine 08/13/2024 8:17 AM CDT Elevated hemoglobin Elevated hematocrit Elevated MCV FOLATE Routine 08/13/2024 8:17 AM CDT Elevated hemoglobin Elevated hematocrit Elevated MCV XR CHEST PA LATERAL 2 VIEWS Routine 07/21/2024 10:04 AM CDT Chest pain, unspecified type EGFR Routine 07/21/2024 9:58 AM CDT Wellness examination Fatty liver DIFFERENTIAL AUTO Routine 07/21/2024 9:5 8 AM CDT Essential hypertension THYROID FUNCTION CASCADE Routine 07/21/2024 9:58 AM CDT Screening for thyroid disorder LIPID PANEL Routine 07/21/2024 9:58 AM CDT Mixed hyperlipidemia Wellness examination COMPREHENSIVE METABOLIC PANEL Routine 07/21/2024 9:58 AM CDT Wellness examination Fatty liver CBC WITH AUTO DIFFERENTIAL Routine 07/21/2024 9:58 AM CDT Essential hypertension from Last 3 Months Results * MRI Cervical Spine WO Contrast (08/21/2024 1:11 PM CDT) Anatomical Region Laterality Modality Spine N/A Magnetic Resonan ce 08/21/2024 1:34 PM CDT Narrative 08/21/2024 1:46 PM CDT EXAM DESCRIPTION: MRI CERVICAL SPINE WO CONTRAST REASON FOR STUDY: Neck pain, chronic Evaluation for surgery to remove bone spur on neck, pain in both arms, no injury, started a while ago TECHNIQUE: Sagittal and Axial imaging includes T1, T2, STIR and gradient echo sequences. COMPARISON: None available. FINDINGS: ALIGNMENT: Reversal of the normal cervical lordosis. Mild anterolisthesis of C3 on C4. Mild retrolisthesis of C5 on C6. VERTEBRAE: The C5-C6 opposing endplate STIR hyperintense signal is nonspecific and presumed to be degenerative in nature. Previous imaging studies are not available for comparison. If there is concern for an infectious process then please correlate with laboratory data. Additional multilevel endplate degenerative changes and marginal spur formation. DISCS: Multilevel intervertebral disc height loss. HARDWARE: None in the spine. CORD: No definite T2 hyperintense cord signal alteration is reproduced on 2 separate sequences. INDIVIDUAL LEVELS: C2-C3: No significant disc bulge, spinal canal or neural foraminal narrowing. Lwkwr-zmpmbtt-rymd-left facet arthropathy. C3-C4: No significant disc bulge or spinal canal stenosis. Uncovertebral spurring and facet arthropathy without significant neural foraminal narrowing. C4-C5: Minor disc bulge. No significant spinal canal stenosis. Uncovertebral spurring and facet arthropathy without significant neural foraminal narrowing. C5-C6: Retrolisthesis of C5 on C6 with unroofing of the disc. Superimposed posterior disc osteophyte complex indents the ventral cord. Thickened ligamentum flavum. Moderate spinal canal stenosis. Uncovertebral spurring and facet arthropathy with moderate to severe neural foraminal narrowing. C6-C7: Posterior disc osteophyte complex and superimposed disc protrusion eccentric to the left. Thickened ligamentum flavum. Mild spinal canal stenosis. Uncovertebral spurring and facet arthropathy with moderate right and moderate to severe left neural foraminal narrowing. C7-T1: Anterolisthesis of C7 on T1 with unroofing of the disc. No significant spinal canal stenosis. Thickened ligamentum flavum and facet arthropathy without significant neural foraminal narrowing. UPPER THORACIC: Incompletely imaged. Multilevel degenerative changes without high-grade spinal canal stenosis. IMPRESSION: 1. Multilevel cervical disc degeneration with thickened ligamentum flavum, uncovertebral spurring and facet arthropathy as described. The spinal canal narrowing is most noticeable at C5-C6 and C6-C7. 2. Neural foraminal narrowing and additional findings as above. THIS IS AN ELECTRONICALLY VERIFIED FINAL REPORT 08/21/2024 1:46 PM - Electronically signed by Osmin Saunders D.O. AP: AP Report ID: [id number] Reading Location: [id number] Procedure Note Osmin Saunders, DO - 08/21/2024 EXAM DESCRIPTION: MRI CERVICAL SPINE WO CONTRAST REASON FOR STUDY: Neck pain, chronic Evaluation for surgery to remove bone spur on neck, pain in both arms, no injury, started a while ago TECHNIQUE: Sagittal and Axial imaging includes T1, T2, STIR and gradientecho sequences. COMPARISON: None available. FINDINGS: ALIGNMENT: Reversal of the normal cervical lordosis. Mildanterolisthesis of C3 on C4. Mild retrolisthesis of C5 on C6. VERTEBRAE: The C5-C6 opposing endplate STIR hyperintense signal is nonspecific and presumed to be degenerative in nature. Previous imaging studies are not available for comparison. If there is concern for an infectious process then please correlate with laboratory data. Additional multilevel endplate degenerative changes and marginal spur formation. DISCS: Multilevel intervertebral disc height loss. HARDWARE: None in the spine. CORD: No definite T2 hyperintense cord signal alteration is reproducedon 2 separate sequences. INDIVIDUAL LEVELS: C2-C3: No significant disc bulge, spinal canal or neural foraminalnarrowing. Gfrta-hblikeu-mkfi-left facet arthropathy. C3-C4: No significant disc bulge or spinal canal stenosis. Uncovertebral spurring and facet arthropathy without significant neural foraminalnarrowing. C4-C5: Minor disc bulge. No significant spinal canal stenosis.Uncovertebral spurring and facet arthropathy without significant neural foraminalnarrowing. C5-C6: Retrolisthesis of C5 on C6 with unroofing of the disc.Superimposed posterior disc osteophyte complex indents the ventral cord. Thickened ligamentum flavum. Moderate spinal canal stenosis. Uncovertebralspurring and facet arthropathy with moderate to severe neural foraminal narrowing. C6-C7: Posterior disc osteophyte complex and superimposed disc protrusion eccentric to the left. Thickened ligamentum flavum. Mild spinal canal stenosis. Uncovertebral spurring and facet arthropathy with moderateright and moderate to severe left neural foraminal narrowing. C7-T1: Anterolisthesis of C7 on T1 with unroofing of the disc. Nosignificant spinal canal stenosis. Thickened ligamentum flavum and facet arthropathy without significant neural foraminal narrowing. UPPER THORACIC: Incompletely imaged. Multilevel degenerative changes without high-grade spinal canal stenosis. IMPRESSION: 1. Multilevel cervical disc degeneration with thickened ligamentumflavum, uncovertebral spurring and facet arthropathy as described. The spinalcanal narrowing is most noticeable at C5-C6 and C6-C7. 2. Neural foraminal narrowing and additional findings as above. THIS IS AN ELECTRONICALLY VERIFIED FINAL REPORT 08/21/2024 1:46 PM - Electronically signed by Osmin Saunders D.O. AP: AP Report ID: [id number] Reading Location: [place] [address] Mena Gonsalez NP IMG MRI PROCEDURES Final Resu lt * MRI Lumbar Spine WO Contrast (08/21/2024 1:11 PM CDT) Anatomical Region Laterality Modality Spine N/A Magnetic Resonan ce 08/21/2024 1:24 PM CDT Narrative 08/21/2024 1:34 PM CDT EXAM DESCRIPTION: MRI LUMBAR SPINE WO CONTRAST REASON FOR STUDY: Lumbar radiculopathy, symptoms persist with > 6 wks treatment Low back pain , both legs pain, no injury, no surgery TECHNIQUE: Sagittal and Axial imaging includes T1, T2, STIR sequences. COMPARISON: Scoliosis radiographs dated 02/02/2021. FINDINGS: SEGMENTATION: To maintain continuity with the nomenclature used on scoliosis radiographs dated 02/02/2021 assumption is made for the last well-formed disc space seen on series 8, image 43 to be labeled L5-S1. ALIGNMENT: Mild retrolisthesis of L2 on L3 and mild anterolisthesis of L4 on L5 and L5 on S1. VERTEBRAE: There is no acute compression fracture in the lumbar spine. Multilevel endplate degenerative changes. The L3 superior corner and T12 anterior inferior corner focal STIR hyperintense signal is nonspecific and likely degenerative in nature. The L4-L5 and L5-S1 facet joint STIR hyperintense signal can be seen with synovitis in the proper clinical scenario. The kvmt-xxscoqw-mtig-right L4 and L5 pedicle STIR hyperintense signal could be secondary to the facet degeneration or stress type marrow reaction. DISC HEIGHT: Multilevel disc desiccation and height loss. HARDWARE: None in the spine. CORD/CAUDA: Conus medullaris terminates at L1. LOWER THORACIC: Incompletely imaged. No high-grade spinal canal stenosis. INDIVIDUAL DISC LEVELS: T12-L1: Minor disc bulge. No significant spinal canal or neural foraminal narrowing. L1-L2: Minor disc bulge with facet arthropathy. No significant spinal canal or neural foraminal narrowing. L2-L3: Disc bulge with thickened ligamentum flavum and facet arthropathy. Trace facet joint effusion. Mild spinal canal stenosis. Lateral recess effacement on both sides. Gwsf-ut-ffmfujrb neural foraminal narrowing. L3-L4: Disc bulge with thickened ligamentum flavum facet arthropathy. Flattening of the ventral thecal sac. Mild neural foraminal narrowing. L4-L5: Anterolisthesis of L4 on L5 with unroofing of the disc. Thickened ligamentum flavum and facet arthropathy. Proliferation of epidural fat. Pbsv-eh-vcqualtg spinal canal stenosis. Lateral recess narrowing on both sides. Moderate to severe proximal neural foraminal narrowing with disc and facet arthropathy contacting the exiting L4 nerve roots. L5-S1: Anterolisthesis of L5 on S1 with unroofing of the disc. Bilateral facet arthropathy. No significant spinal canal or neural foraminal narrowing. IMPRESSION: 1. Edbe-ts-qzonyfzu lumbar disc degeneration with thickened ligamentum flavum and more advanced facet arthropathy as described. The spinal canal narrowing is most noticeable at L4-L5. 2. Varying degrees of bilateral neural foraminal narrowing is also most noticeable at L4-L5. 3. Other findings as above. THIS IS AN ELECTRONICALLY VERIFIED FINAL REPORT 08/21/2024 1:34 PM - Electronically signed by Osmin Saunders D.O. AP: ASHLYN Report ID: [id number] Reading Location: [id number] Procedure Note Osmin Saunders, DO - 08/21/2024 EXAM DESCRIPTION: MRI LUMBAR SPINE WO CONTRAST REASON FOR STUDY: Lumbar radiculopathy, symptoms persist with > 6 wks treatment Low back pain , both legs pain, no injury, no surgery TECHNIQUE: Sagittal and Axial imaging includes T1, T2, STIR sequences. COMPARISON: Scoliosis radiographs dated 02/02/2021. FINDINGS: SEGMENTATION: To maintain continuity with the nomenclature used onscoliosis radiographs dated 02/02/2021 assumption is made for the last well-formeddisc space seen on series 8, image 43 to be labeled L5-S1. ALIGNMENT: Mild retrolisthesis of L2 on L3 and mild anterolisthesis ofL4 on L5 and L5 on S1. VERTEBRAE: There is no acute compression fracture in the lumbar spine. Multilevel endplate degenerative changes. The L3 superior corner and T12 anterior inferior corner focal STIR hyperintense signal is nonspecific and likely degenerative in nature. The L4-L5 and L5-S1 facet joint STIR hyperintense signal can be seen with synovitis in the proper clinical scenario. The ywjs-bmsixgp-qdeb-right L4 and L5 pedicle STIR hyperintense signal could be secondary to the facet degeneration or stress type marrow reaction. DISC HEIGHT: Multilevel disc desiccation and height loss. HARDWARE: None in the spine. CORD/CAUDA: Conus medullaris terminates at L1. LOWER THORACIC: Incompletely imaged. No high-grade spinal canalstenosis. INDIVIDUAL DISC LEVELS: T12-L1: Minor disc bulge. No significant spinal canal or neural foraminal narrowing. L1-L2: Minor disc bulge with facet arthropathy. No significant spinalcanal or neural foraminal narrowing. L2-L3: Disc bulge with thickened ligamentum flavum and facet arthropathy. Trace facet joint effusion. Mild spinal canal stenosis. Lateral recess effacement on both sides. Vvjw-af-kqmwuvwn neural foraminal narrowing. L3-L4: Disc bulge with thickened ligamentum flavum facet arthropathy. Flattening of the ventral thecal sac. Mild neural foraminal narrowing. L4-L5: Anterolisthesis of L4 on L5 with unroofing of the disc. Thickened ligamentum flavum and facet arthropathy. Proliferation of epidural fat. Jfqu-lc-qrmyhnnk spinal canal stenosis. Lateral recess narrowing on both sides. Moderate to severe proximal neural foraminal narrowing with discand facet arthropathy contacting the exiting L4 nerve roots. L5-S1: Anterolisthesis of L5 on S1 with unroofing of the disc. Bilateral facet arthropathy. No significant spinal canal or neural foraminalnarrowing. IMPRESSION: 1. Gciy-tb-aojlgdem lumbar disc degeneration with thickened ligamentum flavum and more advanced facet arthropathy as described. The spinal canal narrowing is most noticeable at L4-L5. 2. Varying degrees of bilateral neural foraminal narrowing is also most noticeable at L4-L5. 3. Other findings as above. THIS IS AN ELECTRONICALLY VERIFIED FINAL REPORT 08/21/2024 1:34 PM - Electronically signed by Osmin Saunders D.O. AP: AP Report ID: [id number] Reading Location: [place] [address] Mena Gonsalez [employer] IMG MRI PROCEDURES Final Resu lt * Folate (08/13/2024 8:17 AM CDT) Folic acid >20.0 >=5.0 ng/mL Comment:Hemolysis present. R esults may be affected. Blood 08/13/2024 8:17 AM CDT 08/13/2024 4:37 PM CDT Mena Gonsalez [employer] LAB BLOOD ORDERABLES Final Re sult Performing Organization Address City/State/[facility] Co de Phone Number [place] [address] [address] Department [place] [address] * Vitamin B12 (08/13/2024 8:17 AM CDT) Vitamin B12 305 230 - 1,250 pg/mL Blood 08/13/2024 8:17 AM CDT 08/13/2024 4:37 PM CDT Mena Gonsalez [employer] LAB BLOOD ORDERABLES Final Re sult Performing Organization Address City/[facility]/[place] [address] [address] Department [place] [address] * XR Chest Pa Lateral 2 Views (07/21/2024 10:04 AM CDT) Anatomical Region Laterality Modality Body, Chest N/A Digital Radiogra phy 07/21/2024 10:0 5 PM CDT Narrative 07/21/2024 10:06 PM CDT EXAM DESCRIPTION: XR CHEST PA LATERAL 2 VIEWS REASON FOR STUDY: lower chest pain Pt complains of chronic chest pain. No chest surgery. No asthma,copd,cancer,heart disease. Former smoker quit 03/10. Smoked since she was 14 1 ppd TECHNIQUE: Frontal and lateral views of the chest. COMPARISON: None FINDINGS: LUNGS AND PLEURA: No focal airspace opacity, pleural effusion, or pneumothorax identified. HEART/MEDIASTINUM: Trachea midline. Cardiac silhouette normal in size. Mediastinal contours appear normal. BONES: Moderate multilevel disc disease. CHEST WALL: Unremarkable. UPPER ABDOMEN: Unremarkable. IMPRESSION: Unremarkable chest radiographs. THIS IS AN ELECTRONICALLY VERIFIED FINAL REPORT 07/21/2024 10:06 PM - Electronically signed by Sahil Manley M.D. AR T: Report ID: [id number] Reading Location: [id number] Procedure Note Sahil Manley MD - 07/21/2024 EXAM DESCRIPTION: XR CHEST PA LATERAL 2 VIEWS REASON FOR STUDY: lower chest pain Pt complains of chronic chest pain. No chest surgery. No asthma,copd,cancer,heart disease. Former smoker quit 03/10. Smoked sinceshe was 16 1 ppd TECHNIQUE: Frontal and lateral views of the chest. COMPARISON: None FINDINGS: LUNGS AND PLEURA: No focal airspace opacity, pleural effusion,or pneumothorax identified. HEART/MEDIASTINUM: Trachea midline. Cardiac silhouette normal in size. Mediastinal contours appear normal. BONES: Moderate multilevel disc disease. CHEST WALL: Unremarkable. UPPER ABDOMEN: Unremarkable. IMPRESSION: Unremarkable chest radiographs. THIS IS AN ELECTRONICALLY VERIFIED FINAL REPORT 07/21/2024 10:06 PM - Electronically signed by Sahil Manley M.D. AR T: Report ID: [id number] Reading Location: [id number] Mena Gonsalez NP IMG XR PROCEDURES Final Resul t * eGFR (07/21/2024 9:58 AM CDT) eGFR >90 >=60 mL/min/1. 73 m2 Comment: Interpretive Data Reference Interval Normal >/= 90 mL/min/1.73m2 Mildly decreased* 60 - 89 mL/min/1.73m2 Mildly to moderately decreased 45 - 59 mL/min/1.73m2 Moderately to severely decreased 30 - 44 mL/min/1.73m2 Severely decreased 15 - 29 mL/min/1.73m2 Kidney Failure < 15 mL/min/1.73m2 *Relative to young adult level Estimated glomerular filtration rate is determined by the 2020 CKD-EPI equation recommended by the National Kid[employer] (A Unifying Approach to GFR Estimation: Recommendations of the NKF-ASK Task Force on Reassessing the Inclusion of Race in Diagnosing Kidney Disease, JASN 2020). The CKD-EPI equation should not be used for patients with unstable renal function and has not been validated in children and those over 70. Current interpretive data was last reviewed 2021. Blood 07/21/2024 9:58 AM CDT 07/21/2024 6:41 PM CDT Mena Gonsalez NP LAB BLOOD ORDERABLES Final Re sult [facility] [id number] [place] [address] * Differential, auto (07/21/2024 9:58 AM CDT) Neutrophil abs 3.80 1.50 - 6.50 K/cumm Imm gran abs 0.02 0.00 - 0.10 K/cumm [facility] Lymphocyte abs 2.91 0.80 - 3.30 K/cumm [facility] Monocyte abs 0.68 0.20 - 0.80 K/cumm [facility] Eosinophil abs 0.08 0.00 - 0.50 K/cumm [facility] Basophil abs 0.08 0.00 - 0.10 K/cumm [facility] Neutrophil pct 50.1 % [facility] Comment: Interpretive Data Percent cell count reference ranges are not reported, since discordance with absolute values may lead to misinterpretation of CBC data. Current Interpretive Data was last revised on 2017. Imm gran pct 0.3 % [facility] Comment: Interpretive Data Percent cell count reference ranges are not reported, since discordance with absolute values may lead to misinterpretation of CBC data. Current Interpretive Data was last revised on 2017. Lymphocyte pct 38.4 % [facility] Comment: Interpretive Data Percent cell count reference ranges are not reported, since discordance with absolute values may lead to misinterpretation of CBC data. Current Interpretive Data was last revised on 2017. Monocyte pct 9.0 % [facility] Comment: Interpretive Data Percent cell count reference ranges are not reported, since discordance with absolute values may lead to misinterpretation of CBC data. Current Interpretive Data was last revised on 2017. Eosinophil pct 1.1 % [facility] Comment: Interpretive Data Percent cell count reference ranges are not reported, since discordance with absolute values may lead to misinterpretation of CBC data. Current Interpretive Data was last revised on 2017. Basophil pct 1.1 % [facility] Comment: Interpretive Data Percent cell count reference ranges are not reported, since discordance with absolute values may lead to misinterpretation of CBC data. Current Interpretive Data was last revised on 2017. Blood 07/21/2024 9:58 AM CDT 07/21/2024 5:22 PM CDT us Mena Gonsalez NP LAB BLOOD ORDERABLES Final Re sult [facility] [address] [place] [address] * Thyroid Function [place] (07/21/2024 9:58 AM CDT) TSH 1.94 0.30 - 4.20 mcIUnit/mL Blood 07/21/2024 9:58 AM CDT 07/21/2024 5:22 PM CDT Mena Gonsalez NP LAB BLOOD ORDERABLES Final Re sult Performing Organization Address City/[facility]/ZIP Co de Phone Number [facility] [address] [place] [place] [address] * (ABNORMAL) CBC with auto differential (07/21/2024 9:58 AM CDT) WBC 7.57 3.80 - 9.90 K/cumm Hgb 16.3(H) 11.9 - 15.5 g/dL [facility] Hct 51.6(H) 35.6 - 45.5 % [facility] Plt 274 150 - 400 K/cumm [facility] MPV 12.0 9.1 - 12.3 fL [facility] RBC 5.26(H) 3.90 - 5.20 M/cumm [facility] MCV 98.1(H) 81.3 - 96.4 fL [facility] MCH 31.0 27.1 - 33.3 pg [facility] MCHC 31.6(L) 32.3 - 35.7 g/dL [facility] RDW CV 12.6 11.1 - 14.9 % [facility] RDW SD 45.4 35.7 - 48.1 fL [facility] NRBC abs 0.00 0.00 - 0.01 K/cumm [facility] Blood 07/21/2024 9:58 AM CDT 07/21/2024 5:22 PM CDT Mena Gonsalez NP LAB BLOOD ORDERABLES Final Re sult [facility] [address] [place] [place] [address] * Lipid panel (07/21/2024 9:58 AM CDT) Cholesterol 185 30 - 199 mg/dL Comment: Interpretive Data Ages < or = 19 years Acceptable: <170 mg/dL Borderline high: 170-199 mg/dL High: >or= 200 mg/dL Ages > or = 20 years Desirable: <200 mg/dL Borderline high: 200-239 mg/dL High: >or= 240 mg/dL Literature References: 1. Expert Panel on Integrated Guidelines for Cardiovascular Health and Risk Reduction in Children and Adolescents. Pediatrics 2011;128:S213 2. NCEP Expert Panel. Circulation 2004;110:227 Current Interpretive Data was last revised on 2017. Triglycerides 134 <=149 mg/dL [facility] Comment: Interpretive Data Ages < or = 9 years Acceptable: <75 mg/dL Borderline high: 75-99 mg/dL High: >or= 100 mg/dL Ages 10 to 20 years Acceptable: <90 mg/dL Borderline high: 90-129 mg/dL High: >or= 130 mg/dL Ages > or = 20 years Desirable: <150 mg/dL Borderline high: 150-199 mg/dL High: 200-499 mg/dL Very high: >or= 499 mg/dL Literature References: 1. Expert Panel on Integrated Guidelines for Cardiovascular Health and Risk Reduction in Children and Adolescents. Pediatrics 2011;128:S213 2. NCEP Expert Panel. Circulation 2004;110:227 Current Interpretive Data was last revised on 2017. HDL 70 >=40 mg/dL [facility] Comment: Interpretive Data Ages < or = 19 years Acceptable: >45 mg/dL Borderline low: 40-45 mg/dL Low: <40 mg/dL Ages > or = 20 years Desirable: >or= 60 mg/dL Low: <40 mg/dL Literature References: 1. Expert Panel on Integrated Guidelines for Cardiovascular Health and Risk Reduction in Children and Adolescents. Pediatrics 2011;128:S213 2. NCEP Expert Panel. Circulation 2004;110:227 Current Interpretive Data was last revised on 2017. LDL, calculated 92 <=129 mg/dL [facility] Comment: Interpretive Data Ages < or = 19 years Acceptable: <110 mg/dL Borderline high: 110-129 mg/dL High: >or= 130 mg/dL Ages > or = 20 years Optimal: <100 mg/dL Near optimal: 100-129 mg/dL Borderline high: 130-159 mg/dL High: >160 mg/dL Calculated using the Daniel LDL-C estimating equation. This equation was implemented on 2023. Prior to this date LDL-C was estimated using the Friedewald equation. Literature References: 1. Expert Panel on Integrated Guidelines for Cardiovascular Health and Risk Reduction in Children and Adolescents. Pediatrics 2011;128:S213 2. NCEP Expert Panel. Circulation 2004;110:227 3. Fredy Garcia al. CK Cardiol. 2019July 16;5(5):540-548. doi: 10.1001/jamacardio.2020.0013 Current Interpretive Data was last revised on 2023. Non-HDL Cholesterol 115 mg/dL [facility] Comment: Interpretive Data Ages < or = 19 years Acceptable: <120 mg/dL Borderline high: 120-144 mg/dL High: >145 mg/dL Ages > or = 20 years When triglycerides are >200 mg/dL, Non-HDL cholesterol is a secondary target of therapy with treatment goals that are 30 mg/dL greater than the LDL cholesterol target. Literature References: 1. Expert Panel on Integrated Guidelines for Cardiovascular Health and Risk Reduction in Children and Adolescents. Pediatrics 2011;128:S213 2. NCEP Expert Panel. Circulation 2004;110:227 Current Interpretive Data was last revised on 2017. Chol/HDL ratio 3 [facility] Blood 07/21/2024 9:58 AM CDT 07/21/2024 5:22 PM CDT Narrative [facility] - 07/21/2024 7:04 PM CDT Has the patient been fasting for 8 hours or more?->Yes Mena Gonsalez NP LAB [place]LOOD [place] [address] [address] [place] [address] * Comprehensive metabolic panel (07/21/2024 9:58 AM CDT) Sodium 138 135 - 145 mmol/L Potassium, pl 4.5 3.3 - 4.9 mmol/L [facility] Chloride 98 97 - 110 mmol/L [facility] CO2 26 22 - 32 mmol/L [facility] Anion gap 14 2 - 15 mmol/L [facility] BUN 10 6 - 25 mg/dL [facility] Creatinine 0.68 0.60 - 1.10 mg/dL [facility] Glucose 91 70 - 199 mg/dL [facility] Comment: Interpretive Data Fasting glucose >/= 126 mg/dl is diagnostic for diabetes. Fasting is defined as no caloric intake for at least 8 hours. Fasting glucose between 100 mg/dl to 125 mg/dl is diagnostic of prediabetes. In a patient with classic symptoms of hyperglycemia or hyperglycemic crisis, a random glucose >/= 200 mg/dl is diagnostic for diabetes. In the absence of unequivocal hyperglycemia, results should be confirmed by repeat testing. The classification and Diagnosis of Diabetes Diabetes Care 202; 46: S19-S40. Current interpretive data was last revised 2022. Calcium 9.7 8.5 - 10.3 mg/dL [facility] Bilirubin, total 0.6 0.1 - 1.2 mg/dL [facility] Protein, pl 8.4 6.5 - 8.5 g/dL [facility] Albumin 4.7 3.5 - 5.0 g/dL [facility] Alk phos 91 40 - 130 Units/L [facility] ALT 19 7 - 45 Units/L [facility] AST 26 10 - 45 Units/L [facility] Blood 07/21/2024 9:58 AM CDT 07/21/2024 5:22 PM CDT us Mena Gonsalez NP LAB BLOOD ORDERABLES Final Re sult [facility] [address] [place] [address] from Last 3 Months Insurance [facility] [employer] [place] [employer] [place] Care Teams Rn Supplemental Relationship Specialty Start Date End Date Mena Gonsalez NP [address] [facility] [address] [place] [address] PCP - General Internal Medicine 07/21/24
--- OUTSIDE RECORDS SUMMARY | 2024-09-25 13:08 | XMS_ITS | Clinical Summary ---
Author Organization [facility] Address [address] [place] [address] Care Team Providers Care Prior Authorization Nurse Name Role Phone Mena Gonsalez NP Primary Care Provider [phone] Allergies No known active allergies Medications cholecalciferol [...] Tobacco abuse 08/08/2018 07/21/2024 Fatigue 07/16/2018 07/21/2024 Encounters Date Type Department Care Team Description 08/27/2024 Telephone [facility] Primary Care at [address] [address] Mena Gonsalez NP Medical Question/Miscellane ous 08/21/2024 11:57 AM CDT - 08/21/2024 11:59 PM CDT Hospital Encounter [facility] [address] [place] [address] Chronic cervical radiculopathy Discharge Disposition: Discharge to home or self care 08/21/2024 11:57 AM CDT - 08/21/2024 11:59 PM CDT Hospital Encounter [address] [address] Chronic lumbar radiculopathy Discharge Disposition: Discharge to home or self care 08/13/2024 8:17 AM CDT - 08/13/2024 11:59 PM CDT Hospital Encounter [address] [address] Elevated hemoglobin; Elevated hematocrit; Elevated MCV Discharge Disposition: Discharge to home or self care 08/13/2024 8:15 AM CDT Lab [facility] Outpatient Lab at [address] [address] 08/13/2024 Results Follow-Up [facility] Primary Care at [address] [address] Mena Gonsalez NP Folate, Vitamin B12 07/24/2024 Results Follow-Up [facility] Primary Care at [address] [address] Mena Gonsalez NP CBC with auto differential, Comprehensive metabolic panel, Lipid panel, Additional followed-up results: 3 07/23/2024 Documentation [facility] Primary Care at [address] [address] Mena Gonsalez NP 07/23/2024 Results Follow-Up [facility] Primary Care at [address] [address] Mena Gonsalez NP XR Chest Pa Lateral 2 Views, MRI Lumbar Spine WO Contrast 07/22/2024 Telephone [facility] Gastroenterology at [address] [place] [address] Corin Rutherford 07/21/2024 10:15 AM CDT Ancillary Procedure [facility] Imaging at [address] [address] 07/21/2024 10:00 AM CDT Lab [facility] Outpatient Lab at [address] [address] 07/21/2024 9:58 AM CDT - 07/21/2024 11:59 PM CDT Hospital Encounter [address] [address] Essential hypertension; Wellness examination; Fatty liver; Mixed hyperlipidemia; Screening for thyroid disorder Discharge Disposition: Discharge to home or self care 07/21/2024 9:00 AM CDT Office Visit [facility] Primary Care at [address] [address] Mena Gonsalez NP BMI 31.0-31.9,adult (Primary Dx); [...] pain, unspecified type from Last 3 Months Immunizations Immunization Administration Dates Next Due Pneumococcal Polysaccharide PPV23 08/12/2018 Tetanus Toxoid, Unspecified 12/16/2008 Surgical History Surgery Date Site/Laterality Comments OVARY SURGERY Left HYSTERECTOMY CHOLECYSTECTOMY SHOULDER SURGERY Right ORIF SHOULDER DISLOCATION W/ HUMERAL FRACTURE KIDNEY STONE SURGERY KNEE SURGERY Right KNEE SURGERY Left TOE SURGERY Left BLADDER SUSPENSION OOPHORECTOMY OTHER SURGICAL HISTORY All teeth removed Medical History Medical History Date Comments Anxiety Depression Gastric reflux Kidney infection Liver disease Disc disorder of lumbar region Lumbar stenosis Hypertension Hypercholesteremia Peripheral neuropathy Kidney stone Family History Medical History Relation Name Comments No Known Problems Brother Heart disease Father No Known Problems Father's Brother No Known Problems Father's Sister No Known Problems Maternal Grandfather Cancer Maternal Grandmother Heart disease Maternal Grandmother No Known Problems Mother No Known Problems Mother's Brother No Known Problems Mother's Sister Arthritis Other Stroke Other No Known Problems Paternal Grandfather No Known Problems Paternal Grandmother No Known Problems Sister Alzheimer's disease Neg Hx Anemia Neg Hx Depression Neg Hx Diabetes Neg Hx Heart attack Neg Hx Hypertension Neg Hx Kidney disease Neg Hx Memory loss Neg Hx Relation Name Status Comments Brother Father Father's Brother Father's Sister Maternal Grandfather Maternal Grandmother Mother Mother's Brother Mother's Sister Other Paternal Grandfather Paternal Grandmother Sister Social History Tobacco Use Types Packs/Day Years [...] on file 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 [address] [place] [address] 11/04/2024 11:30 AM CDT - 11/04/2024 12:30 PM CDT Surgery [address] [address] Richelle Lopez MD [address] [facility] [address] [place] [address] COLONOSCOPY Scheduled Procedures Name Priority Associated Diagnoses Date/Ti me COLONOSCOPY Gastroesophageal reflux disease, unspecified whether esophagitis present Nausea Encounter for screening colonoscopy 11/04/2024 11:30 AM CDT ESOPHAGOGASTRODUODENOSCOPY Gastroesophageal reflux disease, unspecified whether esophagitis present Nausea Encounter for screening colonoscopy 11/04/2024 11:30 AM CDT Health Maintenance Due Date Last Done Comments Breast Cancer Screening-Mammogram 1965 Colon Cancer Screening-Colonoscopy 1965 Hepatitis C Screening 1965 DTaP/Tdap/Td Vaccine (1 - Tdap) 1974 Hepatitis B Screening 1981 Zoster Vaccine (1 of 2) 2013 Pneumococcal vaccine <65 (2 of 2 - PCV) 08/13/2019 0 08/12/2018 Covid-19 Vaccine (2 - season) 11/17/202308/2021 Influenza Vaccine (#1) 2024 Depression Screening 07/21/2025 07/21/2024 Regular Well Visit/Exam 18-64 07/21/2025 07/21/2024 Procedures Procedure Name Priority Date/Time Associated Diagnosis [...] bulge, spinal canal or neural foraminal narrowing. Slszg-ffrjfki-znbp-left facet arthropathy. C3-C4: No significant disc bulge [...] Osmin Saunders D.O. AP: AP Report ID: [id number] Reading Location: [id number] Procedure Note Osmin Saunders, DO - 08/21/2024 [...] disc bulge, spinal canal or neural foraminalnarrowing. Gxkcs-acbdrof-qzjj-left facet arthropathy. C3-C4: No significant disc bulge [...] Osmin Saunders D.O. AP: AP Report ID: [id number] Reading Location: [place] [address] us Mena Gonsalez NP IMG MRI PROCEDURES Final [...] synovitis in the proper clinical scenario. The kgpf-qjmgybx-zwhd-right L4 and L5 pedicle STIR hyperintense signal [...] stenosis. Lateral recess effacement on both sides. Ihdq-bc-oijdpeqs neural foraminal narrowing. L3-L4: Disc bulge with thickened ligamentum flavum facet arthropathy. Flattening of the ventral thecal sac. Mild neural foraminal narrowing. L4-L5: Anterolisthesis of L4 on L5 with unroofing of the disc. Thickened ligamentum flavum and facet arthropathy. Proliferation of epidural fat. Eltl-eg-rggsmpvh spinal canal stenosis. Lateral recess narrowing on both sides. Moderate to severe proximal neural foraminal narrowing with disc and facet arthropathy contacting the exiting L4 nerve roots. L5-S1: Anterolisthesis of L5 on S1 with unroofing of the disc. Bilateral facet arthropathy. No significant spinal canal or neural foraminal narrowing. IMPRESSION: 1. Sqyz-zd-hfhxakzo lumbar disc degeneration with thickened ligamentum flavum and more advanced facet arthropathy as described. The spinal canal narrowing is most noticeable at L4-L5. 2. Varying degrees of bilateral neural foraminal narrowing is also most noticeable at L4-L5. 3. Other findings as above. THIS IS AN ELECTRONICALLY VERIFIED FINAL REPORT 08/21/2024 1:34 PM - Electronically signed by Osmin Saunders D.O. AP: AP Report ID: [id number] Reading Location: [id number] Procedure Note Osmin Saunders, DO - 08/21/2024 [...] synovitis in the proper clinical scenario. The mpum-fkjxbtk-ttpr-right L4 and L5 pedicle STIR hyperintense signal [...] stenosis. Lateral recess effacement on both sides. Wpfw-pu-sofvoqep neural foraminal narrowing. L3-L4: Disc bulge with thickened ligamentum flavum facet arthropathy. Flattening of the ventral thecal sac. Mild neural foraminal narrowing. L4-L5: Anterolisthesis of L4 on L5 with unroofing of the disc. Thickened ligamentum flavum and facet arthropathy. Proliferation of epidural fat. Fivp-os-vymkgshg spinal canal stenosis. Lateral recess narrowing on both sides. Moderate to severe proximal neural foraminal narrowing with discand facet arthropathy contacting the exiting L4 nerve roots. L5-S1: Anterolisthesis of L5 on S1 with unroofing of the disc. Bilateral facet arthropathy. No significant spinal canal or neural foraminalnarrowing. IMPRESSION: 1. Dtdq-uf-isemmdth lumbar disc degeneration with thickened ligamentum flavum and more advanced facet arthropathy as described. The spinal canal narrowing is most noticeable at L4-L5. 2. Varying degrees of bilateral neural foraminal narrowing is also most noticeable at L4-L5. 3. Other findings as above. THIS IS AN ELECTRONICALLY VERIFIED FINAL REPORT 08/21/2024 1:34 PM - Electronically signed by Osmin Saunders D.O. AP: AP Report ID: [id number] Reading Location: [id number] Mena Gonsalez SLIVER CUTTER IMG MRI PROCEDURES Final Resu lt * Folate (08/13/2024 8:17 AM CDT) Folic acid >20.0 >=5.0 ng/mL Comment:Hemolysis present. R esults may be affected. Blood 08/13/2024 8:17 AM CDT 08/13/2024 4:37 PM CDT Mena Gonsalez SLIVER CUTTER LAB BLOOD ORDERABLES Final Re sult Performing Organization Address [facility] Co de Phone Number JAVON BRAUN [address] [place] [address] * Vitamin B12 (08/13/2024 8:17 AM CDT) Vitamin B12 305 230 - 1,250 pg/mL Blood 08/13/2024 8:17 AM CDT 08/13/2024 4:37 PM CDT Mena Sunshine SLIVER CUTTER LAB BLOOD ORDERABLES Final Re sult Performing Organization Address [facility] Co de Phone Number SHAWNALISA BRAUN [address] Department [place] [address] * XR Chest Pa Lateral 2 Views [...] Sahil Manley M.D. AR T: Report ID: [id number] Reading Location: [id number] Procedure Note Sahil Manley MD - 07/21/2024 [...] Sahil Manley M.D. AR T: Report ID: [id number] Reading Location: [id number] Mena Gonsalez NP IMG XR PROCEDURES Final [...] 9:58 AM CDT 07/21/2024 6:41 PM CDT us Mena Gonsalez NP LAB BLOOD ORDERABLES Final Re sult [facility] [address] [place] [address] * Differential, auto (07/21/2024 9:58 AM CDT) Pathologist [facility] Neutrophil abs 3.80 1.50 - 6.50 K/cumm Imm gran abs 0.02 0.00 - 0.10 K/cumm [facility] Lymphocyte abs 2.91 0.80 - 3.30 K/cumm [facility] Monocyte abs 0.68 0.20 - 0.80 K/cumm [facility] Eosinophil abs 0.08 0.00 - 0.50 K/cumm [facility] Basophil abs 0.08 0.00 - 0.10 K/cumm [facility] Neutrophil pct 50.1 % [facility] Comment: Interpretive Data Percent cell count reference ranges are not reported, since discordance with absolute values may lead to misinterpretation of CBC data. Current Interpretive Data was last revised on 2017. Imm gran pct 0.3 % [facility] Comment: Interpretive Data Percent cell count reference ranges are not reported, since discordance with absolute values may lead to misinterpretation of CBC data. Current Interpretive Data was last revised on 2017. Lymphocyte pct 38.4 % [facility] Comment: Interpretive Data Percent cell count reference ranges are not reported, since discordance with absolute values may lead to misinterpretation of CBC data. Current Interpretive Data was last revised on 2017. Monocyte pct 9.0 % [facility] Comment: Interpretive Data Percent cell count reference ranges are not reported, since discordance with absolute values may lead to misinterpretation of CBC data. Current Interpretive Data was last revised on 2017. Eosinophil pct 1.1 % [facility] Comment: Interpretive Data Percent cell count reference ranges are not reported, since discordance with absolute values may lead to misinterpretation of CBC data. Current Interpretive Data was last revised on 2017. Basophil pct 1.1 % [facility] Comment: Interpretive Data Percent cell count reference ranges are not reported, since discordance with absolute values may lead to misinterpretation of CBC data. Current Interpretive Data was last revised on 2017. Blood 07/21/2024 9:58 AM CDT 07/21/2024 5:22 PM CDT us Mena Therien SLIVER CUTTER LAB BLOOD ORDERABLES Final Re sult Performing Organization Address [facility] Co de Phone Number JAVON KADE [address] [place] [address] * Thyroid Function [place] (07/21/2024 9:58 AM CDT) TSH 1.94 0.30 - 4.20 mcIUnit/mL Blood 07/21/2024 9:58 AM CDT 07/21/2024 5:22 PM CDT Convergin SLIVER CUTTER LAB BLOOD ORDERABLES Final Re sult Performing Organization Address City/[facility] Co de Phone Number JAVON BRAUN [address] Department [place] [address] * (ABNORMAL) CBC with auto differential (07/21/2024 9:58 AM CDT) WBC 7.57 3.80 - 9.90 K/cumm Hgb 16.3(H) 11.9 - 15.5 g/dL [facility] Hct 51.6(H) 35.6 - 45.5 % [facility] Plt 274 150 - 400 K/cumm [facility] MPV 12.0 9.1 - 12.3 fL [facility] RBC 5.26(H) 3.90 - 5.20 M/cumm [facility] CH MCV 98.1(H) 81.3 - 96.4 fL [facility] CH MCH 31.0 27.1 - 33.[address] [facility] MCHC 31.6(L) 32.3 - 35.7 g/dL [facility] RDW CV 12.6 11.1 - 14.9 % [facility] RDW SD 45.4 35.7 - 48.1 fL [facility] NRBC abs 0.00 0.00 - 0.01 K/cumm [facility] Blood 07/21/2024 9:58 AM CDT 07/21/2024 5:22 PM CDT us Mena Gonsalez NP LAB BLOOD ORDERABLES Final Re sult [facility] [address] [place] [address] * Lipid panel (07/21/2024 9:58 AM CDT) [...] on 2017. Triglycerides 134 <=149 mg/dL [facility] Comment: Interpretive Data Ages < or = [...] 2017. LDL, calculated 92 <=129 mg/dL [facility] Comment: Interpretive Data Ages < or = 19 years Acceptable: <110 mg/dL Borderline high: 110-129 mg/dL High: >or= 130 mg/dL Ages > or = 20 years Optimal: <100 mg/dL Near optimal: 100-129 mg/dL Borderline high: 130-159 mg/dL High: >160 mg/dL Calculated using the Fredy LDL-C estimating equation. This equation was implemented on 2023. Prior to this date LDL-C was estimated using the Friedewald equation. Literature References: 1. Expert Panel on Integrated Guidelines for Cardiovascular Health and Risk Reduction in Children and Adolescents. Pediatrics 2011;128:S213 2. NCEP Expert Panel. Circulation 2004;110:227 3. Fredy Phillips et al. CK Cardiol. 2020 July 16;5(5):540-548. doi: 10.1001/jamacardio.2020.0013 Current Interpretive Data was last revised on 2023. Non-HDL Cholesterol 115 mg/dL [facility] Comment: Interpretive Data Ages < or = [...] revised on 2017. Chol/HDL ratio 3 [facility] Blood 07/21/2024 9:58 AM CDT 07/21/2024 5:22 PM CDT Narrative [facility] - 07/21/2024 7:04 PM CDT Has the patient been fasting for 8 hours or more?->Yes us Mena Gonsalez NP LAB BLOOD ORDERABLES Final Re sult [facility] [address] [place] [address] * Comprehensive metabolic panel (07/21/2024 9:58 AM CDT) Sodium 138 135 - 145 mmol/L Potassium, pl 4.5 3.3 - 4.9 mmol/L [facility] Chloride 98 97 - 110 mmol/L [facility] CO2 26 22 - 32 mmol/L [facility] Anion gap 14 2 - 15 mmol/L [facility] BUN 10 6 - 25 mg/dL [facility] Creatinine 0.68 0.60 - 1.10 mg/dL [facility] Glucose 91 70 - 199 mg/dL [facility] Comment: Interpretive Data Fasting glucose >/= 126 [...] CDT 07/21/2024 5:22 PM CDT Mena Gonsalez SLIVER CUTTER LAB BLOOD ORDERABLES Final Re sult [facility] [address] [place] [address] from Last 3 Months Insurance [facility] [employer] [place] [place] Care Teams Prior Authorization Nurse Relationship Specialty Start Date End Date Mena Gonsalez NP [address] [facility] [address] [place] [address] PCP - General Internal Medicine 07/21/24
[2024-09-25 13:19] LABS: Hematocrit 44.1 % (37.0-47.0); Hemoglobin 15.0 g/dL (12.0-15.0); Immature Granulocyte Percent A 0.1 % (0-0.5); Lymphocytes Absolute Auto 2.56 K/mm3 (0.9-3.2); Mean Corpuscular HGB Conc 34.0 g/dl (32-36); Mean Corpuscular Hemoglobin 31.6 pg (26-34); Mean Corpuscular Volume 92.8 fl (80-100); Nucleated Red Blood Cells Absolute Auto 0.000 K/mm3 (0.0-0.012); Nucleated Red Blood Cells Perc 0.0 % (0.0-0.2); Platelet Count Result 232 k/mm3 (150-375); Red Blood Count 4.75 M/mm3 (4.2-5.4); White Blood Count 7.4 K/mm3 (4.5-10.0)
[2024-09-25 15:45] LABS: Alanine Aminotransferase 23 U/L (6-35); Albumin Level 4.4 g/dL (3.5-5.1); Alkaline Phosphatase 75 U/L (38-126); Anion Gap 9 mmol/L (4-12); Aspartate Amino Transferase 56 U/L (14-36); Bilirubin,Total 0.5 mg/dL (0.2-1.3); Blood Urea Nitrogen 10 mg/dL (7-17); Calcium 9.0 mg/dL (8.4-10.2); Carbon Dioxide 25 mmol/L (22-30); Chloride 103 mmol/L (98-107); Estimated Glomerular Filt Rate > 60; Glucose 92 mg/dL (65-110); Potassium 4.1 mmol/L (3.4-5.0); Sodium 137 mmol/L (137-145); Total Protein 8.0 g/dL (6.3-8.2)
== END 2024-09-25 13:00 | disposition home or self-care (01) ==
LOC: ANHLAB 13:00
PROVIDERS: PCP Nurse Practitioner; Visit Provider Internal Medicine Hematology & Oncology
DX: D75.1 Secondary polycythemia (principal)
CPT/HCPCS: 36415; 80053; 82668; 85025

== ENCOUNTER 2024-12-10 10:19 | Outpatient (CLI) | payer BC, SELFPAY ==
--- NOTE | ~2024-12-10 | US_ITS ---
Clinical History: Bilateral carotid artery stenosis Examination: US carotid duplex BI Comparison: None Technique: Grayscale, color, duplex/spectral Doppler sonography carotid and vertebral arteries. Distal CCA and Peak ICA systolic velocities provided. Society of Radiologists in Ultrasound (SRU) consensus criteria utilized, indirectly assessing stenosis by velocities. Findings: Mild plaque, left bulb worse. Right side: CCA - 94 cm/sec. ICA - 118 cm/sec. ICA/CCA - 1.3 Left Side: CCA - 97 cm/sec. ICA - 89 cm/sec. ICA/CCA - 0.9 Normal antegrade flow measured bilateral vertebral arteries. IMPRESSION: 1. No hemodynamically significant ICA stenosis (i.e., if any stenosis, less than 50%). 2. Normal bilateral antegrade vertebral artery flow. Stenosis measured by Society of Radiologists in Ultrasound (SRU) criteria. Reviewed, dictated and finalized at location R. IMPRESSION: 1. No hemodynamically significant ICA stenosis (i.e., if any stenosis, less th an 50%). 2. Normal bilateral antegrade vertebral artery flow. Stenosis measured by Society of Radiologists in Ultrasound (SRU) criteria.
== END 2024-12-10 10:20 | disposition home or self-care (01) ==
LOC: MICIMG 10:20
PROVIDERS: PCP Nurse Practitioner; Visit Provider Internal Medicine Cardiovascular Disease
DX: I65.23 Occlusion and stenosis of bilateral carotid arteries (principal)
CPT/HCPCS: 93880

== ENCOUNTER 2025-03-08 10:55 | Outpatient (CLI) | payer BC, SELFPAY ==
--- NOTE | ~2025-03-08 | US_ITS ---
PROCEDURE(S): US breast LT limited INDICATION(S): Follow-up 9:00, 3CMFN COMPARISON(S): Multiple prior studies dating back to Jul, 2023. TECHNIQUE: Grayscale and color Doppler imaging. FINDINGS: Sonography through the 9:00 position again demonstrates a mass which is mostly ovoid, with minimal narrowing at the waist. The maximum dimension is 10 mm, previously 11 mm. The appearance has not changed from August,. IMPRESSION: No significant interval change is seen sonographically. This is still considered probably benign. This can be reevaluated with ultrasound at the time of the bilateral mammogram in August,. BI-RADS 3 - Probably benign - short-term follow-up is recommended. Reviewed, dictated and finalized at location A. [employer]BL[employer] ADJUSTER IMPRESSION: No significant interval change is seen sonographically. This is still considere d probably benign. This can be reevaluated with ultrasound at the time of the b ilateral mammogram in August,. BI-RADS 3 - Probably benign - short-term follow-up is recommended.
--- OUTSIDE RECORDS SUMMARY | 2025-03-08 12:46 | XMS_ITS | Clinical Summary ---
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 Name Role Phone Unavailable Primary Care Provider [...] Encounters Date Type Department Care Team Description 02/23/2025 External Device Data ST[facility] ABSTRACTION Provider, Abstract 02/02/2025 External Device Data [facility] ABSTRACTION Provider, Abstract 01/12/2025 External Device Data [facility] ABSTRACTION Provider, Abstract 01/05/2025 External Device Data [facility] ABSTRACTION Provider, Abstract from Last 3 Months Family History Medical [...] Years Used Date Smoking Tobacco: Former Cigarettes 0 Q uit: 02/16/2024 Smokeless Tobacco: Never Alcohol [...] Care Team (Late st Contact Info) Description 04/19/2025 11:45 AM MANUAL WRITER Office Visit [facility] Oncology and Hematology - Nish [address] [place] [address] Paxton Amaya MD [address] [facility] [address] [place] [address] Health Maintenance Due Date Last Done Comments Pre-Diabetes and Diabetes Screening 1965 DTAP/TDAP/TD VACCINES (1 - Tdap) 1982 BREAST CANCER SCREENING 2003 COLORECTAL SCREENING 02/29/2008 Colorectal Cancer Screening 02/29/2008 FIT-DNA Q 3 years 02/29/2008 FIT/FOBT Q 1 year 02/29/2008 Flex Sig/CT Colonography Q 5 years 02/29/2008 RSV VACCINE (60+ or ) (1 - Risk 50-74 years 1-dose series) 2013 ZOSTER VACCINE (1 of 2) 2013 INFLUENZA VACCINE (#1) 2024 Insurance BLUE ACCESS/TRUE BLUE PPO
--- OUTSIDE RECORDS SUMMARY | 2025-03-08 12:46 | XMS_ITS | Clinical Summary ---
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 Gender Identity Not on file Sexual Orientation Not on file Last Filed Vital Signs Vital Sign Reading Time Taken Comments Blood Pressure 163/115 03/30/2024 11:08 AM MASSAGE OPERATOR Pulse 96 03/30/2024 11:08 AM MASSAGE OPERATOR Temperature 36.2 C (97.2 F) 03/30/2024 11:08 AM MASSAGE OPERATOR Respiratory Rate 18 03/30/2024 11:08 AM MASSAGE OPERATOR Oxygen Saturation 99% 03/30/2024 11:08 AM MASSAGE OPERATOR Inhaled Oxygen Concentration - - Weight - [...] PCV) 08/13/2019 08/12/2018 COVID-19 Vaccine (2 - 2024-2 6 season) 2024 03/23/2021 Influenza Adult (#1) 2024 RSV Immunization or 60+ Years (1 - 1-dose 75+ series) 2038 Hepatitis A Vaccines Aged Out No long er eligible based on patient's age to complete this topic Meningococcal B Vaccine Aged Out No l onger eligible based on patient's age to complete this topic Meningococcal Vaccine Aged Out No cliff frederick eligible based on patient's age to complete this topic RSV Immunizations Under 20 Months Aged Out No longer eligible based on patient's age to complete this topic [place] [address] [place] [address] Care Teams Solar Crew Member Relationship Specialty Start Date End Date None, Provider, MD PCP - General UNKNOWN PHYSICIAN SPECIALTY 03/30/24
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
--- OUTSIDE RECORDS SUMMARY | 2025-03-08 12:47 | XMS_ITS | Clinical Summary ---
Author Organization [facility] Address [address] [place] [address] Care Team Providers Care Enroller Name Role Phone Henrietta Meek MD Primary Care Provider + Source Comments [facility],non-owned Affiliates and Associated Physician Practices is amultiple site organization consisting of ambulatory clinics and hospital sitesin [place], [place], [place] and [place]. This disclosure is being madepursuant to the Care Everywhere program and may not contain all information available regarding this patient. 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
--- OUTSIDE RECORDS SUMMARY | 2025-03-08 12:47 | XMS_ITS | Clinical Summary ---
Author Organization [facility] Address [address] [place] [address] Care Team Providers Care Die Setter Name Role Phone Mena Gonsalez NP Primary Care Provider [phone] Allergies No known active allergies Medications cholecalciferol (VITAMIN D-3) 2000 unit capsule Take 1 capsule (2,000 Units total) by mouth daily 10/17/19 24 Active aspirin 81 mg enteric coated tablet Take 1 tablet (81 mg total) by mouth daily 90 tablet 3 07/22/19 25 Active hydrOXYzine (ATARAX) 10 mg tabletIndications :Anxiety Take 1 tablet (10 mg total) by mouth 2 (two) times a day as needed for anxiety 60 tablet 3 10/07/19 25 Active losartan (COZAAR) 50 mg tabletIndications :Hypertension, essential Take 1 tablet (50 mg total) by mouth daily 30 tablet 11 10/07/19 25 026 Active triamcinolone (KENALOG) 0.1 % cream Apply to affected area 1-2 times daily as needed. Avoid face and groin. 80 g 5 10/27/19 25 026 Active cyanocobalamin (Vitamin B-12) 1,000 mcg tabletIndications :Prevention of Vitamin B12 Deficiency Take 1 tablet (1,000 mcg total) by mouth daily Active omeprazole (PriLOSEC) 40 mg capsuleIndication s:Gastroesophagea l reflux disease without esophagitis Take 1 capsule (40 mg total) by mouth daily 90 capsule 1 11/05/19 25 Active busPIRone (BUSPAR) 10 mg tabletIndications :Generalized Anxiety Disorder Take 1 tablet (10 mg total) by mouth 2 (two) times a day 180 tablet 11/28/[address] (CYMBALTA) 30 mg capsuleIndication s:Anxiety Take 1 capsule (30 mg total) by mouth daily 90 capsule 1 01/15/20 25 Active sulfamethoxazole- trimethoprim (BACTRIM) 800-160 mg per tabletIndications :Skin infection Take 1 tablet by mouth 2 (two) times a day 14 tablet 02/09/20 25 Active albuterol HFA (PROVENTIL HFA,VENTOLIN HFA,PROAIR HFA) 90 mcg/actuation inhalerIndication s:Mixed simple and mucopurulent chronic bronchitis (HCC) Inhale 2 puffs every 6 (six) hours as needed for wheezing 3 each 4 02/09/20 25 Active montelukast (SINGULAIR) 10 mg tabletIndications :Chronic urticaria Take 1 tablet (10 mg total) by mouth nightly 90 tablet 3 02/09/20 25 026 Active cetirizine (ZyrTEC) 10 mg tabletIndications :Chronic urticaria Take 1 tablet (10 mg total) by mouth 2 (two) times a day 180 tablet 3 02/09/20 25 Active rosuvastatin (CRESTOR) 40 mg tabletIndications :Hyperlipidemia LDL goal <70 Take 1 tablet (40 mg total) by mouth daily 90 tablet 3 03/04/20 25 026 Active rosuvastatin (CRESTOR) 20 mg tabletIndications :Mixed hyperlipidemia Take 1 tablet (20 mg total) by mouth daily 90 tablet 3 07/22/19 25 025 Discontinued(T herapy completed) cetirizine (ZyrTEC) 10 mg tablet Take 1 tablet (10 mg total) by mouth daily 90 tablet 3 07/22/19 25 025 Discontinued(R eorder) predniSONE (DELTASONE) 10 mg tablet Take 6 tabs (60mg) daily for 2 days, then take 5 tabs (50mg) daily for 2 days. Continue to decrease by 1 tab (10mg) every 2 days until gone. 42 tablet 02/09/20 25 025 Discontinued predniSONE (DELTASONE) 10 mg tablet Take 6 tabs (60mg) daily for 2 days, then take 5 tabs (50mg) daily for 2 days. Continue to decrease by 1 tab (10mg) every 2 days until gone. 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 The BMI is above average. BMI management plan is completed. BMI Follow-up includes: nutrition counseling, exercise counseling and education provided. Encouraged regular physical activity--moderate activity for a total of 150 minutes per week over 3-5 days. Encouraged healthy diet with regular fresh fruits and vegetables limited in processed carbohydrates. Itching 10/06/2024 Assessment & Plan (10/06/2024 10:19 AM CDT): Orders: Bile acids; Future Gastroesophageal reflux disease 07/22/2024 Encounter for screening colonoscopy 07/22/2024 Personal history of nicotine dependence 07/22/19 25 Assessment & Plan (07/21/2024 12:23 PM CDT): Has not been smoking cigarettes for the last year. Vaping intermittently. Vaping nicotine dependence, tobacco product 08/2024 Assessment & Plan (11/17/2024 9:18 AM CDT): Discussed smoking cessation and different methods to help with that. Patient declines at this time. Discussed the risks of smoking including COPD, CAD, Stroke, lung cancer, and increased risk of premature . Total time spent was 3 minutes. Assessment & Plan (07/21/2024 12:23 PM CDT): [...] Chronic cervical radiculopathy 07/21/2024 Assessment & Plan (10/06/2024 10:19 AM CDT): Orders: ZEINA ab ql w/rflx to ZEINA qn; Future Assessment & Plan (07/21/2024 12:23 PM CDT): Orders: MRI Cervical Spine WO Contrast; Future Chronic lumbar radiculopathy 07/21/2024 Assessment & Plan (11/17/2024 9:18 AM CDT): Assessment & Plan (10/06/2024 10:19 AM CDT): Orders: ZEINA ab ql w/rflx to ZEINA qn; Future Assessment & Plan (07/21/2024 12:23 PM CDT): Orders: MRI Lumbar Spine WO Contrast; Future Family history of stroke 02/02/2021 Chronic obstructive pulmonary disease 11/24/2020 Assessment & Plan (07/21/2024 12:23 PM CDT): Chest x-ray ordered. Denies any current symptoms. Not currently medicated. Physical exam clean Enthesopathy of hip region 11/24/2020 Fatty liver disease, nonalcoholic 03/04/2019 Assessment & Plan (11/17/2024 9:18 AM CDT): Assessment & Plan (10/06/2024 10:19 AM CDT): Orders: Bile acids; Future US RUQ; Future Assessment & Plan (07/21/2024 12:23 PM CDT): Orders: Comprehensive metabolic panel; Future Hyperlipidemia LDL goal <70 08/08/2018 Assessment & Plan (07/21/2024 12:23 PM [...] panel; Future Anxiety 05/09/2017 Assessment & Plan (10/06/2024 10:19 AM CDT): Orders: DULoxetine DR (CYMBALTA) 30 mg capsule; Take 1 capsule (30 mg total) by mouth daily hydrOXYzine (ATARAX) 10 mg tablet; Take 1 tablet (10 mg total) by mouth 2 (two) times a day as needed for anxiety Assessment & Plan (07/21/2024 12:23 PM CDT): [...] Problem Noted Date Diagnosed Date Resolved Date Carpal tunnel syndrome on both sides 11/17/2024 11/17/2024 BMI 31.0-31.9,adult 07/21/2024 11/18/19 Assessment & Plan (07/21/2024 12:23 PM CDT): -Continue following a heart healthy diet with regular physical activity as tolerated Pain in limb 11/24/2020 11/17/2024 Chest pain 08/08/2018 07/21/2024 Screening for other and unsp ecified cardiovascular conditions 08/08/2018 07/21/2024 Tobacco abuse 08/08/2018 07/21/2024 Fatigue 07/16/2018 07/21/2024 Encounters Date Type Department Care Team Description 03/04/2025 3:00 PM SHAKE BACKBOARD NOTCHER Office Visit [facility] Cardiology at [address] [place] [phone] Jose Cruz Monae MD Hyperlipidemia LDL goal <70 (Primary Dx); Bilateral carotid artery stenosis; Family history of coronary artery disease; Essential hypertension; Coronary artery disease of [place] artery of [place] tribe heart with stable angina pectoris 02/08/2025 Orders Only [facility] Primary Care at [address] [phone] Mena Gonsalez NP 02/08/2025 E-Visit [facility] Primary Care at [address] [phone] Mena Gonsalez NP Asking for antibiotic 12/31/2024 1:40 PM CDT - 12/31/2024 3:10 PM CDT Surgery [facility] Cardiac Catheterization Lab [address] [place] [address] Irwin Del Rio MD LEFT HEART CATHETERIZATION WITH CORONARY ANGIOGRAPHY AND WITH OR WITHOUT LEFT VENTRICULOGRAM [id number] 12/31/2024 9:42 AM CDT - 12/31/2024 6:52 PM CDT Hospital Encounter [facility] Cardiac Catheterization Lab [address] [place] [address] Irwin Del Rio MD Abnormal stress test Discharge Disposition: Discharge to home or self care 12/24/2024 Telephone [facility] Cardiology [address] [facility] [address], [place] [phone] Irwin Del Rio MD 12/21/2024 Results Follow-Up [facility] Cardiology [address] [facility] [address] [place] [phone] Jose Cruz Monae MD NM MPI SPECT (Rest and/or Stress) Multiple Studies, Transthoracic Echo (TTE) Complete W Doppler/CF 12/18/2024 11:15 AM CDT Ancillary Procedure [facility] Cardiology at [address] [place] [phone] Family history of coronary artery disease; Chest tightness; Personal history of nicotine dependence 12/18/2024 9:15 AM CDT Ancillary Procedure [facility] Cardiology at [address] [place] [phone] Essential hypertension 12/14/2024 Telephone [facility] Cardiology at [address] [place] [phone] Jose Cruz Monae MD 12/10/2024 Orders Only [facility] Cardiology at [address] [place] [phone] Jose Cruz Monae MD Bilateral carotid artery stenosis 12/07/2024 9:30 AM CDT Office Visit [facility] Cardiology at [address] [place] [phone] Jose Cruz Monae MD Known medical problems (Primary Dx); Essential hypertension; Family history of coronary artery disease; Hyperlipidemia LDL goal <70; Obstructive sleep apnea syndrome; Chest tightness; Bilateral carotid artery stenosis; Chronic obstructive pulmonary disease, unspecified COPD type (HCC); Personal history of nicotine dependence from Last 3 Months Immunizations Immunization Administration Dates Next Due Influenza, Unspecified 01/16/2025(Deferr ed: Patient Refused),01/17/2024(Deferred: Patient Refused) Pneumococcal Polysaccharide PPV23 08/12/2018 Tetanus Toxoid, Unspecified 12/16/2008 Surgical History Surgery Date Site/Laterality Comments OVARY SURGERY Left HYSTERECTOMY CHOLECYSTECTOMY SHOULDER SURGERY Right ORIF SHOULDER DISLOCATION W/ HUMERAL FRACTURE KIDNEY STONE SURGERY KNEE SURGERY Right KNEE SURGERY Left TOE SURGERY Left BLADDER SUSPENSION OOPHORECTOMY OTHER SURGICAL HISTORY All teeth removed COLONOSCOPY 11/04/2024 UPPER GASTROINTESTINAL ENDOSCOPY 11/04/2024 CARDIAC CATHETERIZATION 12/31/2024 N/A Procedure: LEFT HEART CATHETERIZATION WITH CORONARY ANGIOGRAPHY AND WITH OR WITHOUT LEFT VENTRICULOGRAM [id number]; Surgeon: Irwin Del Rio MD; Location: CARDIAC CRISIS NURSE; Service: Cardiovascular; Laterality: N/A; CARDIAC CATHETERIZATION 12/31/2024 N/A Procedure: Coronary Flow Velocity (CFR) / Instantaneous Flow Velocity (IFR), 1st Vessel; Surgeon: Irwin Del Rio MD; Location: CARDIAC CRISIS NURSE; Service: Cardiovascular; Laterality: N/A; Medical History Medical History Date Comments Anxiety Depression Gastric reflux Kidney infection Liver disease Disc disorder of lumbar region Lumbar stenosis Hypertension Hypercholesteremia Peripheral neuropathy Kidney stone Osteoporosis Arthritis Asthma GERD (gastroesophageal reflux disease) Abnormal stress test Family History Medical History Relation Name Comments [...] Grandmother Mother Mother's Brother Mother's Sister Other Alive Paternal Grandfather Paternal Grandmother Sister Social History Tobacco Use Types Packs/Day Years Used Date Smoking Tobacco: Former Cigarettes 1 43.9 S tarted: 1980 Vaping Passive Smoke Exposure: Past Smokeless Tobacco: Never Tobacco Cessation:Counseling Given: Not Answered PHQ-2 Answer Date Recorded PHQ-2 Total Score (If total score is 3 or more points, staff should administer the PHQ-9) 6 10/06/2024 PHQ-9 Answer Date Recorded PHQ-9 Total Score 12 10/06/2024 AUDIT-C Answer Date Recorded Frequency of Alcohol Consumption Not on file 12/31/2024 Q2: How many drinks containi ng alcohol do you have on a typical day when you are drinking? Patient does not drink Frequency of Binge Drinking Not on file 12/16 Personal Safety Answer Date Recorded Have you ever been in or are you currently in a harmful physical or emotional relationship or is someone making you feel afraid or unsafe? Denies 12/31/2024 Comments No Sex and Gender Information Value Date Recorded Sex Assigned at Not on file Legal Sex Female 2:42 AM SHAKE BACKBOARD NOTCHER Gender Identity Female 01/19/2021 4:50 PM CDT Sexual Orientation Straight 01/19/2021 4: 50 PM CDT Last Filed Vital Signs Vital Sign Reading Time Taken Comments Blood Pressure 138/78 03/04/2025 3:23 PM SHAKE BACKBOARD NOTCHER Pulse 82 03/04/2025 3:23 PM SHAKE BACKBOARD NOTCHER Temperature 36.5 C (97.7 F) 12/31/2024 9:50 AM CDT Respiratory Rate 19 12/31/2024 6:00 PM CDT Oxygen Saturation 95% 03/04/2025 3:23 PM SHAKE BACKBOARD NOTCHER Inhaled Oxygen Concentration - - Weight 89.4 kg (197 lb) 03/04/2025 3:23 PM SHAKE BACKBOARD NOTCHER Height 162.6 cm (5' 4) 03/04/2025 3:23 PM SHAKE BACKBOARD NOTCHER Body Mass Index 33.81 03/04/2025 3:23 PM SHAKE BACKBOARD NOTCHER Plan of Treatment Health Maintenance Due Date Last Done Comments Colon Cancer Screening-Colonoscopy 1965 DTaP/Tdap/Td Vaccine (1 - Tdap) 1974 Zoster Vaccine (1 of 2) 2013 Pneumococcal vaccine <65 (2 of 2 - PCV) 08/13/2019 08/12/2018 Covid-19 Vaccine (2 - season) 2024 03/23/2021 Breast Cancer Screening-Mammogram 03/06/2025 09/04/2024, 09/04/2024, 09/04/2024, Additional history exists Regular Well Visit/Exam 18-64 07/21/2025 07/21/2024 Influenza Vaccine (#1) 2025 Postp oned from 11/16/2024 (Patient declined, but will receive in the future) Depression Screening 10/06/2025 10/06/2024, 10/06/2024, 07/21/2024 Hepatitis B Screening Discontinued Hepatitis C Screening Discontinued Procedures Procedure Name Priority Date/Time Associated Diagnosis Comments CORONARY FLOW VELOCITY (CFR) / INSTATANEOUS FLOW VELOCITY (IFR), 1ST VESSEL Routine 12/31/2024 2:44 PM CDT Abnormal stress test LEFT HEART CATHETERIZATION WITH CORONARY ANGIOGRAPHY AND WITH AND WITHOUT LEFT VENTRICULOGRAM Routine 12/31/2024 2:44 PM CDT Abnormal stress test MODERATE SEDATION 12/31/2024 1:5 0 PM CDT Abnormal stress test EGFR Routine 12/31/2024 9:51 AM CDT CBC WITHOUT DIFFERENTIAL Routine 12/31/2024 9:51 AM CDT BASIC METABOLIC PANEL Routine 12/31/2024 9:51 AM CDT NM MPI SPECT (REST AND/OR STRESS) MULTIPLE STUDIES Schedule Routine, Read Routine (OP Routine) 12/18/2024 11:01 AM CDT Family history of coronary artery disease Chest tightness Personal history of nicotine dependence TRANSTHORACIC ECHO (TTE) COMPLETE W DOPPLER/CF WO CONTRAST Routine 12/18/2024 9:23 AM CDT Essential hypertension ECG 12-LEAD Routine 12/07/2024 9:51 AM CDT Known medical problems HM MAMMOGRAPHY Routine 09/04/2024 from Last 3 Months or Most Recently Relevant to Health Maintenance Results * LEFT HEART CATHETERIZATION WITH CORONARY ANGIOGRAPHY AND WITH AND WITHOUT LEFT VENTRICULOGRAM, CORONARY FLOW VELOCITY (CFR) / INSTATANEOUS FLOW VELOCITY (IFR), 1ST VESSEL (12/31/2024 2:44 PM CDT) Anatomical Region Laterality Modality X-Ray Angiograph y Addenda Addendum by Irwin Del Rio MD on 12/31/2024 3:07 PM CDT CARDIAC CATHETERIZATION AND INTERVENTION REPORT DATE OF PROCEDURE: 12/31/24 INDICATION FOR PROCEDURE: Chest pain, abdominal MPI BRIEF CLINICAL HISTORY: Nery Dozier is a 59 y.o. female with hypertension, dyslipidemia, anxiety/depression, history of tobacco abuse, currently vaping. Patient was referred by Dr. Monae for cardiac catheterization in the setting of chest discomfort and impairment MPI. Patient had MPI done on 12/18/2024 reportedly showed partially reversible defect in the apical anterior segment and apex; normal LVEF. Benefits and risks of the procedure were discussed with the patient in depth, and informed consent was taken prior to the procedure. Risks of the procedure include but are not limited to vascular complications like groin hematoma, retroperitoneal bleed, vessel perforation; periprocedural ND, cardiac arrhythmias, stroke, contrast induced nephropathy, and . After discussing all the benefits, risks and alternatives, patient was willing to proceed with the procedure. PROCEDURES PERFORMED: Ultrasound-guided right radial arterial access Left heart catheterization-selective left and right coronary angiogram, left ventriculogram, LV pressure measurement, hemodynamic assessment Percutaneous coronary intervention- IFR of mid LAD Moderate sedation-CPT code 73839 and beyond MODERATE SEDATION: Midazolam 3 mg , Fentanyl 100 mcg, start time 1357 stop time 1444, total direct [id number] monitoring of conscious sedation 47 minutes (CPT 45054) TRAINED OBSERVER: Justus Wynne RN was trained observer for moderate sedation. ACCESS SITE: Right radial artery PROCEDURE: After obtaining informed consent, patient was brought to the chemical laboratory scientist and prepped and draped in the usual sterile manner. Time-out and immediate reassessment of the patient was performed. After local anesthesia with lidocaine, right radial artery access was taken with micropuncture needle under ultrasound guidance followed by insertion of a 6 Swazi sheath. Patient received 2.5 mg of verapamil, 200 mcg of nitroglycerin; and 5000 units of heparin for the diagnostic portion of the catheterization. Selective left and right coronary angiography was performed using 5 F JL4 and 5F JR4 catheters respectively. Orthogonal views were taken. 5 F JR4 catheter was advanced in the LV cavity, LV pressure measurement was performed followed by left ventriculogram using minimal dye. The catheter was flushed, and gradient across the aortic valve was measured using pullback technique. Estimated blood loss was minimal. All specimens removed. The angiographic and other findings, and details of intervention are given below. FINDINGS: LEFT MAIN CORONARY: Medium to large caliber vessel, no significant focal stenosis. LEFT ANTERIOR DESCENDING ARTERY: Medium caliber vessel with minor plaque in the proximal segment; tapers distally and becomes diminutive vessel in the distal segment. There is about 50% stenosis in the mid segment just distal to the major diagonal branch. Major diagonal branch is a medium caliber vessel with mild plaque in the proximal segment. LEFT CIRCUMFLEX ARTERY: Medium caliber vessel, gives rise to high OM branch which is a medium caliber vessel; and small-caliber OM2 branch without significant focal stenosis. RIGHT CORONARY ARTERY: Large caliber, dominant vessel. There is mild about 30% stenosis in the lower part of the proximal segment. Vessel gives rise to medium to large caliber terminal branches. LEFT VENTRICULOGRAM: Normal LV systolic function ejection fraction about 60%. LVEDP elevated at 20 mmHg. HEMODYNAMIC ASSESSMENT: Opening pressure 165/95 mmHg, closing pressure 187/98 mmHg, LVEDP 20 mmHg. No significant gradient across aortic valve on the full back of pigtail catheter. INTERVENTION REPORT: Angiogram showed about 50% stenosis in the mid LAD distal to the diagonal branch. We proceeded with a functional assessment using IFR. Bivalirudin was used for procedural anticoagulation. Swetha Omni wire was zeroed outside the body, was advanced in the left main and proximal LAD, was normalized after flushing the catheter; the mid LAD lesion was crossed, and IFR wire was positioned in the upper part of the distal segment. IFR was measured at 0.93 on 3 successive measurements based on this, intervention was not deemed necessary in the mid LAD stenosis. Final angiogram showed preserved flow in the left coronary system. Radial band was applied for local hemostasis after completion of the procedure. Patient tolerated procedure well without any immediate procedural complications. CONCLUSIONS: CAD- A) mild plaque proximal LAD; about 50% focal stenosis mid LAD distal to the diagonal branch (IFR 0.93); B) about 30% stenosis proximal RCA Preserved LV systolic function, ejection fraction about 60%. LVEDP elevated at 20 mmHg. Systemic hypertension PLAN/RECOMMENDATIONS: Optimal medical treatment including antiplatelet treatment, statin; risk factor modification including optimal blood pressure control and smoking cessation. Outpatient follow up with Dr. Monae. Voice recognition software was used to complete this document, therefore, bedspread inspector variances may occur. Irwin Del Rio MD, [facility] 12/31/24 Irwin Del Rio MD CV CARDIAC CATH PROCEDURES Edite d Result - Final * eGFR (12/31/2024 9:51 AM CDT) eGFR >90 >=60 mL/min/1. 73 [...] interpretive data was last reviewed 2021. Blood 12/31/2024 9:51 AM CDT 12/31/2024 10:10 AM CDT Irwin Del Rio MD LAB BLOOD ORDERABLES Final Resul t [facility] [id number] Department [place] [address] * (ABNORMAL) CBC without differential (12/31/2024 9:51 AM CDT) WBC 6.45 3.80 - 9.90 K/cumm Hgb 15.8(H) 11.9 - 15.5 g/dL CERNER CH Hct 47.5(H) 35.6 - 45.5 % C[facility] CH Plt 295 150 - 400 K/cumm [facility] CH MPV 10.9 9.1 - 12.3 fL [facility] RBC 5.08 3.90 - 5.20 M/cumm [facility] MCV 93.5 81.3 - 96.[address] [facility] M[facility] 31.1 27.1 - 33.3 pg CERNER MCHC 33.3 32.3 - 35.7 g/dL [facility] RDW CV 12.2 11.1 - 14.9 % [facility]ER RDW SD 42.7 35.7 - 48.[address] [facility] NRBC abs 0.00 0.00 - 0.01 K/cumm [facility] Blood 12/31/2024 9:51 AM CDT 12/31/2024 10:10 AM CDT Narrative [facility] - 12/31/2024 10:17 AM CDT If most recent labs were drawn prior to 4 AM, draw only prior to initiating procedure. us Irwin Del Rio MD LAB BLOOD ORDERABLES Final Resul t [facility] [id number] Department [place] [address] * Basic metabolic panel (12/31/2024 9:51 AM CDT) Sodium 136 135 - 145 mmol/L Potassium, pl 4.3 3.3 - 4.9 mmol/L [facility] Chloride 99 97 - 110 mmol/L [facility] CO2 25 22 - 32 mmol/L [facility] Anion gap 12 2 - 15 mmol/L [facility] BUN 9 6 - 25 mg/dL [facility] Creatinine 0.67 0.60 - 1.10 mg/dL [facility] Glucose 110 70 - 199 mg/dL [facility] Comment: Interpretive Data Fasting glucose >/= 126 [...] classification and Diagnosis of Diabetes Diabetes Care 2021; 46: S19-S40. Current interpretive data was last revised 2022. Calcium 9.6 8.5 - 10.3 mg/dL [facility] Blood 12/31/2024 9:51 AM CDT 12/31/2024 10:10 AM CDT us Irwin Del Rio MD LAB BLOOD ORDERABLES Final Resul t [facility] [id number] [place] [address] * NM MPI SPECT (Rest and/or Stress) Multiple Studies (12/18/2024 11:01 AM CDT) Anatomical Region Laterality Modality Body N/A Electrocardiogra phy 12/18/2024 11:1 5 AM CDT Narrative 12/18/2024 4:30 PM CDT [facility] Cardiology [address] [address] [address] [address] [facility] [address], [place] [address] [address] , [place] [address] [phone] P:[phone] MPI Imaging Report Patient Name: NERY DOZIER R : 1965 Study Date: 12/18/2024 11:15:00 AM Sex: F Tech: ALIN LERNER Location: [facility] Provider: JOSE CRUZ MONAE Height(Cm): 162.2 BSA: Weight(Kg): 87 Heart Rate: 135 BMI: 33.07 Order Provider: JOSE CRUZ MONAE PHYSICIAN: Primary Care Physician: Mena Gonsalez NP. [facility] Physician: Doyle Monae M.D. Stress Supervision: Jimbo Tirado M.D.,Tobias Stress Interpreting Physician: Jimbo Tirado M.D.,Tobias Image Interpreting Physician: Jimbo Tirado M.D.,Holly. PROCEDURES: Pharmacologic SPECT Report: Myocardial perfusion imaging with Tc99M Sestamibi SPECT at rest and stress post regadenoson (Lexiscan) infusion. INDICATIONS: Hypertension, Family Hx CAD, High Cholesterol, Former Smoker, Z82.49 Family history of ischemic heart disease and other diseases of the circulatory system, R07.89 Other chest pain, and Z87.891 Personal history of nicotine dependence. FINDINGS: Procedural Findings: One day rest/stress was used. Tc99m Sestamibi injected IV at rest was 10.6 millicuries 32.8 millicuries of Tc99M Sestamibi injected IV during Lexiscan stress Lexiscan 0.4mg administered IV over 10 seconds. Pharmacologic stress related symptoms and/or side effects during infusion include neck pain 4/10. Symptoms were resolved with completion of Lexiscan protocol. Baseline heart rate was 72 BPM Maximum Heart Rate Achieved was: 108 BPM Baseline blood pressure was 133/85 mmHg Post Stress Blood Pressure was 148/83 mmHg Termination: Protocol complete. Resting ECG: Normal sinus rhythm. Nonspecific ST-T abnormalities. Post ECG: No diagnostic ST changes. Findings do not meet strict criteria for ischemia given resting ST segment abnormality. Perfusion Findings: A TID of 1.02 was automatically calculated. defect 1: Size is medium. Severity is mild to moderate in intensity. Location of defect is in the apical anterior segment and apex. Reversibility is partial. Type of defect is ischemia with infarction. LV Function: Global left ventricular function is normal. Left ventricular ejection fraction is 63 %. CONCLUSIONS: Normal sinus rhythm Nonspecific ST-T abnormalities. No diagnostic ST changes. Findings do not meet strict criteria for ischemia given resting ST segment abnormality. Global left ventricular function is normal. Left ventricular ejection fraction is 63 %. Size is medium. Severity is mild to moderate in intensity. Location of defect is in the apical anterior segment and apex. Reversibility is partial. Type of defect is ischemia with infarction. Electronically Signed By: Jimbo Tirado MD, [facility] 12/18/2024 4:30:06 PM CDT Electronically Signed By: Jimbo Tirado MD, [facility] 12/18/2024 4:30:06 PM CDT Procedure Note Jimbo Tirado MD - 12/18/2024 [facility] Cardiology [address] [address] [address], [place] [address] [address] [place] [address] P:[phone] P:[phone] MPI Imaging Report Patient Name: NERY DOZIER R : 1965 Study Date: 12/18/2024 11:15:00 AM Sex: F Tech: YANN [facility] Location: [facility] Provider: JOSE CRUZ MONAE Height(Cm): 162.2 BSA: Weight(Kg): 87 Heart Rate: 135 BMI: 33.07 Order Provider: JOSE CRUZ MONAE PHYSICIAN: Primary Care Physician: Mena Gonsalez NP. [facility] [place] Physician: Jose Angel Fernandez Stress Supervision: Jimbo Tirado M.D.,LizzetteCAntoine Stress InterpretingPhysician: Jimbo Tirado M.D.,LizzetteCAntoine Image Interpreting Physician: Jimbo Win M.D.,LizzetteCAntoine PROCEDURES: Pharmacologic SPECT Report: Myocardial perfusion imaging with Tc99M Sestamibi SPECT at rest and stresspost regadenoson (Lexiscan) infusion. INDICATIONS: Hypertension, Family Hx CAD, High Cholesterol, Former Smoker, Z82.49Family history of ischemic heart disease and other diseases of the circulatory system,R07.89 Other chest pain, and Z87.891 Personal history of nicotine dependence. FINDINGS: Procedural Findings: One day rest/stress was used. Tc99m Sestamibi injected IV at rest was 10.6 millicuries 32.8 millicuries of Tc99M Sestamibi injected IV during Lexiscan stress Lexiscan 0.4mg administered IV over 10 seconds. Pharmacologic stress related symptoms and/or side effects duringinfusion include neck pain 4/10. Symptoms were resolved with completion of Lexiscan protocol. Baseline heart rate was 72 BPM Maximum Heart Rate Achieved was: 108 BPM Baseline blood pressure was 133/85 mmHg Post Stress Blood Pressure was 148/83 mmHg Termination: Protocol complete. Resting ECG: Normal sinus rhythm. Nonspecific ST-T abnormalities. Post ECG: No diagnostic ST changes. Findings do not meet strict criteria forischemia given resting ST segment abnormality. Perfusion Findings: A TID of 1.02 was automatically calculated. defect 1: Size is medium. Severity is mild to moderate in intensity. Location ofdefect is in the apical anterior segment and apex. Reversibility is partial. Type of defectis ischemia with infarction. LV Function: Global left ventricular function is normal. Left ventricular ejectionfraction is 63 %. CONCLUSIONS: Normal sinus rhythm Nonspecific ST-T abnormalities. No diagnostic ST changes. Findings do not meet strict criteria forischemia given resting ST segment abnormality. Global left ventricular function is normal. Left ventricular ejectionfraction is 63 %. Size is medium. Severity is mild to moderate in intensity. Location ofdefect is in the apical anterior segment and apex. Reversibility is partial. Type of defectis ischemia with infarction. Electronically Signed By: Jimbo Tirado MD, [facility] 12/18/2024 4:30:06 PM CDT Electronically Signed By: Jimbo Tirado MD, [facility] 12/18/2024 4:30:06 PM CDT Jose Cruz Monae MD [facility] [place] PROCEDURES Final R esult * TRANSTHORACIC ECHO (TTE) COMPLETE W DOPPLER/CF WO CONTRAST (12/18/2024 9:23 AM CDT) Estimated EF 65 % CONS SCIMAGE EF Mod BP 64 % CONS SCIMAGE Anatomical Region Laterality Modality Ultrasound 12/18/2024 9:04 AM CDT Narrative 12/18/2024 12:35 PM CDT [facility] Cardiology [address], [address], [place] [address] P:[phone] P:[phone] Echocardiographic Report Patient Name: NERY DOZIER R : 1965 Study Date: 12/18/2024 9:04:52 AM Sex: F Chief Unit Forester: Location: [facility] Ref Provider: JOSE CRUZ MONAE Height(Cm): 163 BSA: 1.98 Weight(Kg): 86.6 Heart Rate: 76 BP: 136 / 80 Quality: Good Order Provider: JOSE CRUZ MONAE PROCEDURES: Echocardiographic Report: Transthoracic echocardiogram with complete 2D, M-Mode, and color Doppler examination. With Strain Analysis. INDICATIONS: I10 Essential (primary) hypertension. MEASUREMENTS: 2D/MM Value Range Doppler Value Range EF Mod BP 64 % [ 54 - 74 ] SCARLET Vmax 1.80 cm2 [ 2.00 - 4.00 ] EF Teich MM 60 % [ 54 - 74 ] AV Mean PG 5 mmHg Estimated EF 65 % AV Peak Joe 1.55 m/s [ 1.00 - 1.70 ] LV GLS -16.08 % AV Peak PG 10 mmHg LVIDd 2D 4.26 cm [ 3.80 - 5.20 ] AV VTI 33.87 cm LVIDd MM 4.57 cm [ 3.80 - 5.20 ] LVOT Diam 1.98 cm [ 1.70 - 2.10 ] LVIDs 2D 2.78 cm [ 2.20 - 3.50 ] LVOT Peak Joe 0.91 m/s [ 0.70 - 1.10 ] LVIDs MM 3.11 cm [ 2.20 - 3.50 ] LVOT VTI 20.44 cm LVPWd 2D 1.06 cm [ 0.60 - 0.90 ] MV E Peak Joe 0.62 m/s [ 0.60 - 1.30 ] LVPWd MM 1.00 cm [ 0.60 - 0.90 ] MV A Peak Joe 0.68 m/s [ 1.00 - 1.20 ] IVSd 2D 1.20 cm [ 0.60 - 0.90 ] MV Decel Time 221 msec [ 104 - 258 ] IVSd MM 1.00 cm [ 0.60 - 0.90 ] PV Peak Joe 1.03 m/s [ 0.40 - 0.80 ] LA Dimension MM 3.14 cm [ 2.70 - 3.80 ] TR Peak Joe 2.42 m/s [ 1.00 - 2.80 ] AoR Diam MM 2.97 cm [ 2.70 - 3.70 ] TR Peak PG 23 mmHg LA Volume 24.14 ml [ 22.00 - 52.00 ] RVSP 31.00 mmHg [ 10.00 - 36.00 ] LA Volume Index 12 cc/m2 [ 16 - 28 ] RV S` 0.09 m/s ACS MM 1.81 cm Lateral E` 0.09 m/s [ 0.10 - 0.15 ] RA Volume 20.58 ml Septal E` 0.06 m/s [ 0.08 - 0.15 ] E` 0.07 m/s E/E` 8 Tapse 2.08 cm [ 1.71 - 5.00 ] 2D/MM Value Range Doppler Value Range - FINDINGS: Interpretation Site: Exam was interpreted at [facility]. Left Ventricle: Normal left ventricular size. Left ventricular wall thickness upper limits of normal. Normal global left ventricular systolic function. Impaired diastolic relaxation Grade I. Ejection fraction is measured at 64 %. Ejection Fraction is visually estimated to be 65 %. Global Longitudinal Strain is -16 %. Right Ventricle: Normal right ventricular size. Left Atrium: The left atrium is normal in size. Right Atrium: The right atrium is normal in size. Atrial Septum: Normal atrial septum. Mitral Valve: Normal appearance of the mitral valve. Aortic Valve: Aortic cusps appear mildly sclerotic. Tricuspid Valve: Normal appearance of the tricuspid valve. Estimated peak RVSP is 31 mmHg. Trivial regurgitation in the tricuspid valve. Pulmonic Valve: Normal appearance of the pulmonic valve. Pericardium: Normal pericardium with no significant pericardial effusion. Aorta: Normal aortic root. IVC: Normal size and normal respiratory collapse consistent with normal right atrial pressure (<5 mmHg). Pulmonary Artery: Normal pulmonary artery size. CONCLUSIONS: Normal left ventricular size. Left ventricular wall thickness upper limits of normal. Normal global left ventricular systolic function. Impaired diastolic relaxation Grade I. Ejection fraction is measured at 64 %. Ejection Fraction is visually estimated to be 65 %. Global Longitudinal Strain is -16 %. Mildly sclerotic aortic valve with well-maintained leaflet excursion. Trivial tricuspid valve regurgitation. Electronically Signed By: Jimbo Tirado MD, [facility] 12/18/2024 12:34:03 PM CDT Procedure Note Jimbo Tirado MD - 12/18/2024 [facility] Cardiology [address], [address], [place] [address] [phone] P:[phone] Echocardiographic Report Patient Name: NERY DOZIER R : 1965 Study Date: 12/18/2024 9:04:52 AM Sex: F Chief Unit Forester: ROXANA Location: [facility] Ref Provider: JOSE CRUZ MONAE Height(Cm): 163 BSA: 1.98 Weight(Kg): 86.6 Heart Rate: 76 BP: 136 / 80 Quality: Good Order Provider: JOSE CRUZ MONAE PROCEDURES: Echocardiographic Report: Transthoracic echocardiogram with complete 2D, M-Mode, and color Dopplerexamination. With Strain Analysis. INDICATIONS: I10 Essential (primary) hypertension. MEASUREMENTS: 2D/MM Value Range Doppler ValueRange EF Mod BP 64 % [ 54 - 74 ] SCARLET Vmax 1.80cm2 [ 2.00 - 4.00 ] EF Teich MM 60 % [ 54 - 74 ] AV Mean PG 5mmHg Estimated EF 65 % AV Peak Joe 1.55m/s [ 1.00 - 1.70 ] LV GLS -16.08 % AV Peak PG 10mmHg LVIDd 2D 4.26 cm [ 3.80 - 5.20 ] AV VTI 33.87cm LVIDd MM 4.57 cm [ 3.80 - 5.20 ] LVOT Diam 1.98cm [ 1.70 - 2.10 ] LVIDs 2D 2.78 cm [ 2.20 - 3.50 ] LVOT Peak Joe 0.91m/s [ 0.70 - 1.10 ] LVIDs MM 3.11 cm [ 2.20 - 3.50 ] LVOT VTI 20.44cm LVPWd 2D 1.06 cm [ 0.60 - 0.90 ] MV E Peak Joe 0.62m/s [ 0.60 - 1.30 ] LVPWd MM 1.00 cm [ 0.60 - 0.90 ] MV A Peak Joe 0.68m/s [ 1.00 - 1.20 ] IVSd 2D 1.20 cm [ 0.60 - 0.90 ] MV Decel Time 221msec [ 104 - 258 ] IVSd MM 1.00 cm [ 0.60 - 0.90 ] PV Peak Joe 1.03m/s [ 0.40 - 0.80 ] LA Dimension MM 3.14 cm [ 2.70 - 3.80 ] TR Peak Joe 2.42m/s [ 1.00 - 2.80 ] AoR Diam MM 2.97 cm [ 2.70 - 3.70 ] TR Peak PG 23mmHg LA Volume 24.14 ml [ 22.00 - 52.00 ] RVSP 31.00mmHg [ 10.00 - 36.00 ] LA Volume Index 12 cc/m2 [ 16 - 28 ] RV S` 0.09m/s ACS MM 1.81 cm Lateral E` 0.09m/s [ 0.10 - 0.15 ] RA Volume 20.58 ml Septal E` 0.06m/s [ 0.08 - 0.15 ] E` 0.07 m/s E/E` 8 Tapse 2.08 cm [ 1.71 - 5.00 ] 2D/MM Value Range Doppler ValueRange - FINDINGS: Interpretation Site: Exam was interpreted at [facility]. Left Ventricle: Normal left ventricular size. Left ventricular wall thickness upper limitsof normal. Normal global left ventricular systolic function. Impaired diastolicrelaxation Grade I. Ejection fraction is measured at 64 %. Ejection Fraction is visuallyestimated to be 65 %. Global Longitudinal Strain is -16 %. Right Ventricle: Normal right ventricular size. Left Atrium: The left atrium is normal in size. Right Atrium: The right atrium is normal in size. Atrial Septum: Normal atrial septum. Mitral Valve: Normal appearance of the mitral valve. Aortic Valve: Aortic cusps appear mildly sclerotic. Tricuspid Valve: Normal appearance of the tricuspid valve. Estimated peak RVSP is 31 mmHg.Trivial regurgitation in the tricuspid valve. Pulmonic Valve: Normal appearance of the pulmonic valve. Pericardium: Normal pericardium with no significant pericardial effusion. Aorta: Normal aortic root. IVC: Normal size and normal respiratory collapse consistent with normal rightatrial pressure (<5 mmHg). Pulmonary Artery: Normal pulmonary artery size. CONCLUSIONS: Normal left ventricular size. Left ventricular wall thickness upper limitsof normal. Normal global left ventricular systolic function. Impaired diastolicrelaxation Grade I. Ejection fraction is measured at 64 %. Ejection Fraction is visuallyestimated to be 65 %. Global Longitudinal Strain is -16 %. Mildly sclerotic aortic valve with well-maintained leaflet excursion. Trivial tricuspid valve regurgitation. Electronically Signed By: Jimbo Tirado MD, [facility] 12/18/2024 12:34:03 PM CDT Jose Cruz Monae MD CV ECHO PROCEDURES Final Result * ECG 12 lead (12/07/2024 9:51 AM CDT) Jose Cruz Monae MD ECG ORDERABLES Edited Re sult - Final * (ABNORMAL) HM MAMMOGRAPHY (09/04/2024) [facility] Signature Mammography Abnormal Historical Provider HEALTH MAINTENANCE Final Result from Last 3 Months or Most Recently Relevant to Health Maintenance Insurance [employer] [place] [employer] [place] [facility] Advance Directives For more information, please contact: [phone] * Full Code (Latest Code Status on File) Date Activated Date Inactivated Comments 11/04/2024 9:56 AM 11/04/2024 4:47 PM * Full Code Date Activated Date Inactivated Comments 11/04/2024 9:56 AM 11/04/2024 9:56 AM Care Teams Die Setter Relationship Specialty Start Date End Date Mena Gonsalez NP [address] [facility] [address] [place] [address] PCP - General Internal Medicine 07/21/24
== END 2025-03-08 10:56 | disposition home or self-care (01) ==
LOC: ANHFOHIMG 10:56
PROVIDERS: PCP Nurse Practitioner; Visit Provider Nurse Practitioner
DX: N63.20 Unspecified lump in the left breast, unspecified quadrant (principal); R92.8 Other abnormal and inconclusive findings on diagnostic imaging of breast
CPT/HCPCS: 76642